=== PATIENT | female | born 1940 | race Caucasian/White ===

== ENCOUNTER → 2018-03-08 08:50 | Outpatient (CLI) | payer MEDICARE, SELFPAY ==
[2018-03-08 10:02] LABS: ALB/GLOB Ratio 0.9 RATIO (0.9-2.4); AST(SGOT) 15 U/L (15-37); Alanine Aminotransfer ALT/SGPT 15 U/L (13-56); Albumin, Serum 3.3 g/dL (3.2-5.0); Alkaline Phosphatase 68 U/L (45-117); Anion Gap 9 (5-15); BUN 14 mg/dL (7-18); BUN/Creat Ratio 14.6 RATIO (10-20); Calcium,Total 8.9 mg/dL (8.5-10.1); Chloride 108 mmol/L (98-107); Cholesterol 217 mg/dL (200); Creatinine, Serum 0.96 mg/dL (0.55-1.02); EST Glomerular Filtration Rate 60 mL/min (>60); Est Glom Filt Rate - Afr Amer 73 mL/min (>60); Globulin 3.6 g/dL (2.2-4.2); Glucose 90 mg/dL (74-106); High Density Lipoprotein 52 mg/dL; Potassium 4.3 mmol/L (3.5-5.1); Protein, Total 6.9 g/dL (6.4-8.2); Sodium Level 145 mmol/L (136-145); Triglycerides 148 mg/dL; Very Low Density Lipoprotein 30 mg/dL (5-40)
[2018-03-08 10:07] LABS: AST(SGOT) 11 U/L (15-37); Alanine Aminotransfer ALT/SGPT 15 U/L (13-56); Albumin, Serum 3.3 g/dL (3.2-5.0); Alkaline Phosphatase 71 U/L (45-117); Bilirubin, Direct 0.11 mg/dL (0.00-0.30); Globulin 3.5 g/dL (2.2-4.2); Protein, Total 6.8 g/dL (6.4-8.2)
== END ==
PROVIDERS: Physician Assistant Medical; Family Provider Family Medicine; PCP Family Medicine; Visit Provider Family Medicine
DX: E78.5 Hyperlipidemia, unspecified (principal); I10 Essential (primary) hypertension; Z79.899 Other long term (current) drug therapy
CPT/HCPCS: 36415; 80053; 80061; 80076

== ENCOUNTER → 2018-05-03 10:44 | Outpatient (CLI) | payer MEDICARE, SELFPAY ==
--- NOTE | 2018-05-03 10:46 | ECHOD_ITS ---
Reason For Study: MVP Procedure This was a 2D Doppler, Color Flow transthoracic echocardiogram. The exam was of fair technical quality due to body habitus. The study was technically difficult. Exam performed in department. Left Ventricle Normal LV size. Left ventricular systolic function is normal. The estimated ejection fraction is 70 %. There is evidence of diastolic dysfunction. No regional wall motion abnormalities noted. Right Ventricle Normal RV size. Normal systolic function. Atria The left atrium is mildly enlarged. Normal right atrium. No doppler evidence for ASD. Mitral Valve There is no mitral annular calcification. Normal mitral valve. Mild-Moderate (1-2+) mitral valve insufficiency. Tricuspid Valve Normal tricuspid valve. Mild tricuspid valve insufficiency. Right ventricular systolic pressure estimated to be 36 mmHg. Aortic Valve Trisinus/trileaflet aortic valve. Mild focal aortic valve thickening. Trivial aortic valve insufficiency. Pulmonic Valve The pulmonic valve is not well visualized. Great Vessels Normal sized aortic root. Pericardium/Pleural No pericardial effusion. MMode/2D Measurements & Calculations LVIDd: 5.3 cm IVSd: 1.0 cm Ao root diam: 3.2 cm LVIDs: 3.5 cm LVPWd: 1.00 cm LA dimension: 4.2 cm RVDd: 3.2 cm FS: 34.3 % LAV(MOD-bp): 54.2 ml LA A4 area: 19.2 cm2 LAV(MOD-bp) Indexed: 30.0 ml/m2 LAV(MOD-sp2): 56.9 ml LAV(MOD-sp4): 50.7 ml Doppler Measurements & Calculations MV E max jake: 76.7 cm/sec Lat Peak E' Jake: 7.4 cm/sec Med Peak E' Jake: 8.8 cm/sec MV A max jake: 85.8 cm/sec E/E' lat: 10.3 E/E' med: 8.7 MV E/A: 0.89 Ao V2 max: 135.2 cm/sec AI max jake: 402.3 cm/sec LV V1 max: 122.6 cm/sec Ao max P.3 mmHg AI max P.7 mmHg LV V1 max P.0 mmHg AI dec slope: 215.7 cm/sec2 AI P1/2t: 546.2 msec PA V2 max: 92.4 cm/sec TR max jake: 287.7 cm/sec TR max P.1 mmHg Interpretation Summary The study was technically difficult. Left ventricular systolic function is normal. The estimated ejection fraction is 70 %. The left atrium is mildly enlarged. Mild-Moderate (1-2+) mitral valve insufficiency. Mild tricuspid valve insufficiency. Mild focal aortic valve thickening. Right ventricular systolic pressure estimated to be 36 mmHg. There is evidence of diastolic dysfunction. Ordering Physician: Khadra Knox Referring Physician: Carlitos Wise Performed By: Sachi Solomon RDCS, RVT
== END ==
PROVIDERS: Family Provider Family Medicine; PCP Family Medicine; Visit Provider Physician Assistant Medical
DX: I47.1 Supraventricular tachycardia (principal)
CPT/HCPCS: 93306

== ENCOUNTER 2018-06-15 00:30 | Emergency (ER) | payer MEDICARE, SELFPAY ==
[2018-06-15 00:31] VITALS: BP 197/115; PULSE 126; PULSE 136; RESP 21; RESP 30; TEMP 36.6; O2SAT 96; O2SAT 98; BMI 32.2
--- NOTE | 2018-06-15 00:31 | EKG12_ITS ---
Test Reason : REPEAT Blood Pressure : / mmHG Vent. Rate : 069 BPM Atrial Rate : 069 BPM P-R Int : 184 ms QRS Dur : 088 ms QT Int : 406 ms P-R-T Axes : 054 010 023 degrees QTc Int : 435 ms Normal sinus rhythm Nonspecific ST abnormality Abnormal ECG Confirmed by GUTIERREZ MORALES, VERN ([id number]), health editor AILYN PAULINO ([id number]) on 06/17/2018 1:20:32 PM Referred By: SHARON Confirmed By:VERN WHITLEY MD
--- NOTE | 2018-06-15 00:33 | ED.DCSUM_ITS ---
- ER Visit Summary Date of Service: 06/15/18 Chief Complaint: Palpitation History of Present Illness: The patient is a 77 F presents to the emergency room palpitations. Patient has a history of palpitations. She does not think she has ever been diagnosed with atrial fibrillation. She states approximately 45 minutes ago, she began feeling her heart was racing. She did feel mildly short of breath. She denies any chest pain. She states up until today she has been in her normal state of health. She denies any history of coronary vascular disease. She has had no orthopnea. She denies any cough or increasing leg edema. Physical Examination: Vital signs reviewed General: Well-nourished, well-developed Head: Normocephalic, atraumatic Eyes: Pupils equal and reactive, extraocular muscles intact Neck, supple, no lymphadenopathy Heart: Irregular tachycardic rate and rhythm Respiratory: No distress, clear bilaterally Abdomen: Soft, nontender, nondistended, no peritoneal signs Back: Nontender Extremities: Nontender, no edema, no cords Skin: Normal color no rash Neuro: Alert and oriented, no focal or lateralizing deficits Test Results: [] Emergency Department Course and Treatment: The patient presents with symptomatic palpitations. Initial EKG demonstrates atrial fibrillation with rapid ventricular response. IV was established. Patient was placed on a monitor. I had ordered 20 mg of IV diltiazem, however prior to receiving any medication, the patient did spontaneously convert. Repeat EKG demonstrates sinus rhythm without acute ischemia. Labs were obtained were unremarkable. Chest x-ray shows no volume overload. The patient has had no chest pain. She was observed for 1 hour longer and had no further dysrhythmia. I did discuss the patient with Dr. Gillis, on-call for Dr. Garcia. At this time, we are going to increase the patient's diltiazem to 180 mg. She is comfortable this plan of care and would discharge to follow-up with cardiology as an outpatient. Treatment Plan: [] Disposition: Discharge Impression: 1. Atrial fibrillation with rapid ventricular response-spontaneous conversion to sinus rhythm This note was generated with [employer] software. It may contain incorrect words, spelling, and punctuation that were not noted in review of the chart prior to signing ED Disposition - Plan for ED Patient: Chief Complaint: Palpitations Instructions: ED Afib Prescriptions: Diltiazem HCl [Diltiazem 24Hr Cd] 180 mg PO DAILY #30 cap.er.24h Referrals: Vidal Garcia MD [STAFF PHYSICIAN] -
--- NOTE | 2018-06-15 00:35 | RAD_ITS ---
STUDY: X-RAY CHEST REASON FOR EXAM: Female, 77 years old. Chest pain. TECHNIQUE: AP portable chest. COMPARISON: March 31, 2016. FINDINGS: The lungs are clear and expanded. There is no demonstrated pleural abnormality. Stable mild cardiomegaly. Normal mediastinum and woody. Normal visualized pulmonary arteries. Normal visualized aortic arch and descending thoracic aorta. Normal visualized thoracic spine. Normal visualized ribs, clavicles, and shoulders. There is no demonstrated abnormality of the visualized soft tissue structures of the upper abdomen. RAD/Chest 1 View (Portable) IMPRESSION: Stable cardiomegaly. No acute findings. Electronically Signed: David Dueñas MD at 1:04 EDT , Service support ,
--- NOTE | 2018-06-15 00:35 | EKG12_ITS ---
Test Reason : PALPITATIONS Blood Pressure : / mmHG Vent. Rate : 127 BPM Atrial Rate : 138 BPM P-R Int : 000 ms QRS Dur : 098 ms QT Int : 324 ms P-R-T Axes : 000 011 195 degrees QTc Int : 470 ms Atrial fibrillation Nonspecific ST and T wave abnormality Abnormal ECG Confirmed by GUTIERREZ MORALES, VERN ([id number]), science editor AILYN PAULINO ([id number]) on 06/17/2018 1:39:13 PM Referred By: SHARON Confirmed By:VERN WHITLEY MD
[2018-06-15] MEDS: Aspirin 81 MG TAB.CHEW 324 MG PO (00:41)
[2018-06-15 00:57] LABS: Absolute Lymphocyte Count 2.49 X10^3/ul (0.83-4.51); Absolute Neutrophil Count 2.3 X10^3/uL (2.0-7.7); Basophil# 0.03 X10^3/uL; Basophil% 0.5 % (0-1); Eosinophil# 0.12 X10^3/uL; Eosinophils% 2.2 % (0-5); Hematocrit 42.5 % (37-47); Hemoglobin 13.7 g/dl (12.0-15.0); Lymphocyte # 2.49 X10^3/ul (4.0); Lymphocyte % 44.9 % (19-41); Mean Corp Hgb Conc 32.2 g/gl (32-36); Mean Corpuscular Hgb 30.2 pg (27.0-32.0); Mean Corpuscular Volume 93.8 fL (81-99); Mean Platelet Vol. 9.9 fl (6.2-12.0); Monocyte# 0.62 X10^3/uL; Monocyte% 11.2 % (0-10); Neutrophil # 2.28 X10^3/uL (2.7-7.7); Platelet Count 319 K/mm3 (150-450); RBC Distribution Width CV 13.8 % (11.6-14.6); RBC Distribution Width SD 45.2 fl (35.1-43.9); Red Blood Count 4.53 M/mm3 (4.2-5.4); White Blood Count 5.6 K/mm3 (4.4-11.0)
[2018-06-15 00:59] LABS: POSITIVE COUNT NO; POSITIVE DIFFERENTIAL NO; POSITIVE MORPHOLOGY NO
[2018-06-15 01:08] LABS: Anion Gap 8 (5-15); BUN 14 mg/dL (7-18); BUN/Creat Ratio 13.2 RATIO (10-20); Calcium,Total 9.4 mg/dL (8.5-10.1); Chloride 107 mmol/L (98-107); Creatinine, Serum 1.06 mg/dL (0.55-1.02); EST Glomerular Filtration Rate 53 mL/min (>60); Est Glom Filt Rate - Afr Amer 64 mL/min (>60); Estimated Creatinine Clearance 34.59 ml/min; Glucose 104 mg/dL (74-106); Potassium 3.7 mmol/L (3.5-5.1); Sodium Level 141 mmol/L (136-145)
[2018-06-15 01:12] LABS: Partial Thromboplast Time 28.3 Seconds (24.1-36.2); Prothrombin Time (Protime)PT. 12.8 SECONDS (11.7-14.9)
[2018-06-15 01:13] VITALS: BP 145/88; PULSE 62; RESP 20; O2SAT 98
[2018-06-15 01:44] VITALS: BP 154/62; PULSE 64; RESP 19; O2SAT 99
== END 2018-06-15 01:50 | disposition home or self-care (01) ==
LOC: ED 00:48
PROVIDERS: Emergency Provider Emergency Medicine; Family Provider Family Medicine; PCP Family Medicine
DX: I48.91 Unspecified atrial fibrillation (principal); I10 Essential (primary) hypertension; E78.00 Pure hypercholesterolemia, unspecified
CPT/HCPCS: 71045; 80048; 84484; 85025; 85610; 85730; 93005; 96374; 99285; A4216

== ENCOUNTER → 2018-07-01 09:18 | Outpatient (CLI) | payer MEDICARE, SELFPAY ==
[2018-07-01 11:25] LABS: Magnesium 2.2 mg/dL (1.6-2.6); T4 Total, Thyroxin 7.8 ug/dL (4.8-13.9); Thyroid Stim Hormone (TSH) 4.83 uIU/mL (0.358-3.74)
== END ==
PROVIDERS: Family Provider Family Medicine; PCP Family Medicine; Visit Provider Physician Assistant Medical
DX: I47.1 Supraventricular tachycardia (principal); R00.2 Palpitations; I10 Essential (primary) hypertension; R53.83 Other fatigue
CPT/HCPCS: 36415; 83735; 84436; 84443

== ENCOUNTER → 2018-11-17 10:51 | Outpatient (CLI) | payer MEDICARE, SELFPAY ==
[2018-09-13 09:30] VITALS: BMI 31.2
[2018-11-17 14:07] LABS: Thyroid Stim Hormone (TSH) 3.83 uIU/mL (0.358-3.74)
== END ==
PROVIDERS: Family Provider Family Medicine; PCP Family Medicine; Referring Provider Family Medicine; Visit Provider Family Medicine
DX: E78.00 Pure hypercholesterolemia, unspecified (principal)
CPT/HCPCS: 36415; 84443

== ENCOUNTER → 2019-12-20 11:27 | Outpatient (CLI) | payer MEDICARE, SELFPAY ==
[2019-12-20 11:24] VITALS: BMI 30.7
[2019-12-20 12:52] LABS: Hemoglobin A1c 5.5 % (4.2-6.3)
[2019-12-20 13:02] LABS: T4 Free Direct 0.98 ng/dL (0.76-1.46); Thyroid Stim Hormone (TSH) 6.83 uIU/mL (0.358-3.74)
== END ==
PROVIDERS: PCP Family Medicine; Referring Provider Family Medicine; Visit Provider Family Medicine
DX: I48.0 Paroxysmal atrial fibrillation (principal); Z79.899 Other long term (current) drug therapy
CPT/HCPCS: 36415; 83036; 84439; 84443

== ENCOUNTER → 2020-06-21 08:58 | Outpatient (CLI) | payer MEDICARE, SELFPAY ==
[2020-06-14 15:32] VITALS: BMI 31.4
[2020-06-25 16:54] LABS: Acetylcholine Receptor Binding 0.04 nmol/L (0.00-0.24)
== END ==
PROVIDERS: PCP Family Medicine; Referring Provider Ophthalmology; Visit Provider Ophthalmology
DX: H49.01 Third [oculomotor] nerve palsy, right eye (principal); H25.813 Combined forms of age-related cataract, bilateral; H35.363 Drusen (degenerative) of macula, bilateral
CPT/HCPCS: 36415; 84238

== ENCOUNTER → 2020-11-19 14:24 | Outpatient (CLI) | payer MEDICARE, SELFPAY ==
[2020-11-19 14:03] VITALS: BMI 31.6
[2020-11-19 15:55] LABS: ALB/GLOB Ratio 0.9 RATIO (0.9-2.4); AST(SGOT) 13 U/L (15-37); Alanine Aminotransfer ALT/SGPT 16 U/L (13-56); Albumin, Serum 3.4 g/dL (3.2-5.0); Alkaline Phosphatase 78 U/L (45-117); Anion Gap 4 (5-15); BUN 13 mg/dL (7-18); Calcium,Total 9.7 mg/dL (8.5-10.1); Chloride 106 mmol/L (98-107); Creatinine, Serum 1.08 mg/dL (0.55-1.02); EST Glomerular Filtration Rate 52 mL/min (>60); Est Glom Filt Rate - Afr Amer 63 mL/min (>60); Globulin 3.7 g/dL (2.2-4.2); Glucose 93 mg/dL (74-106); Potassium 4.4 mmol/L (3.5-5.1); Protein, Total 7.1 g/dL (6.4-8.2); Sodium Level 138 mmol/L (136-145); T4 Free Direct 1.01 ng/dL (0.76-1.46); Thyroid Stim Hormone (TSH) 4.47 uIU/mL (0.358-3.74)
== END ==
PROVIDERS: PCP Family Medicine; Referring Provider Family Medicine; Visit Provider Family Medicine
DX: I48.0 Paroxysmal atrial fibrillation (principal); I10 Essential (primary) hypertension
CPT/HCPCS: 36415; 80053; 84439; 84443

== ENCOUNTER 2021-11-27 11:53 | Outpatient (CLI) | payer MEDICARE, SELFPAY ==
[2021-11-27 15:18] LABS: Absolute Lymphocyte Count 1.98 X10^3/uL (0.83-4.51); Absolute Neutrophil Count 3.3 X10^3/uL (2.0-7.7); Basophil# 0.05 X10^3/uL; Basophil% 0.8 % (0-1); Eosinophil# 0.33 X10^3/uL; Eosinophils% 5.2 % (0-5); Hematocrit 39.5 % (37-47); Hemoglobin 12.4 g/dL (12.0-15.0); Lymphocyte # 1.98 X10^3/ul (0.83-4.51); Lymphocyte % 31.4 % (19-41); Mean Corp Hgb Conc 31.4 g/dL (32-36); Mean Corpuscular Hgb 30.2 pg (27.0-32.0); Mean Corpuscular Volume 96.1 fL (81-99); Mean Platelet Vol. 10.9 fl (6.2-12.0); Monocyte# 0.62 X10^3/uL; Monocyte% 9.8 % (0-10); NRBC Flagged by Analyzer 0 % (0-5); Neutrophil # 3.31 X10^3/uL (2.7-7.7); Neutrophil % 52.6 % (47-70); Platelet Count 348 K/mm3 (150-450); RBC Distribution Width CV 13.7 % (11.6-14.6); RBC Distribution Width SD 48.2 fl (35.1-43.9); Red Blood Count 4.11 M/mm3 (4.2-5.4); White Blood Count 6.3 K/mm3 (4.4-11.0)
[2021-11-27 15:41] LABS: ALB/GLOB Ratio 0.9 RATIO (0.9-2.4); AST(SGOT) 14 U/L (15-37); Alanine Aminotransfer ALT/SGPT 16 U/L (13-56); Albumin, Serum 3.3 g/dL (3.2-5.0); Alkaline Phosphatase 65 U/L (45-117); Anion Gap 6 (5-15); BUN 21 mg/dL (7-18); BUN/Creat Ratio 18.6 RATIO (10-20); Calcium,Total 9.4 mg/dL (8.5-10.1); Chloride 110 mmol/L (98-107); Creatinine, Serum 1.13 mg/dL (0.55-1.02); EST Glomerular Filtration Rate 49 mL/min (>60); Est Glom Filt Rate - Afr Amer 59 mL/min (>60); Globulin 3.8 g/dL (2.2-4.2); Glucose 92 mg/dL (74-106); Potassium 4.5 mmol/L (3.5-5.1); Protein, Total 7.1 g/dL (6.4-8.2); Sodium Level 142 mmol/L (136-145); Thyroid Stim Hormone (TSH) 5.85 uIU/mL (0.358-3.74)
== END 2021-11-27 23:59 | disposition short-term general hospital (02) ==
LOC: BIMLAB 11:53
PROVIDERS: PCP Family Medicine; Referring Provider Family Medicine; Visit Provider Family Medicine
DX: R10.9 Unspecified abdominal pain (principal); I10 Essential (primary) hypertension; E78.00 Pure hypercholesterolemia, unspecified
CPT/HCPCS: 36415; 80053; 84443; 85025

== ENCOUNTER 2022-03-17 12:59 | Observation (INO) | payer MEDICARE, SELFPAY ==
[2022-03-17] VITALS (9 sets, daily range): BP systolic 124–179; BP diastolic 50–113; PULSE 43–65; RESP 16–20; TEMP 36.1–36.3; O2SAT 94–99; BMI 34.4; BMI 36.2
--- NOTE | 2022-03-17 13:36 | EKG12_ITS ---
Test Reason : DIZZINESS Blood Pressure : / mmHG Vent. Rate : 051 BPM Atrial Rate : 051 BPM P-R Int : 182 ms QRS Dur : 092 ms QT Int : 478 ms P-R-T Axes : 047 016 037 degrees QTc Int : 440 ms Sinus bradycardia Otherwise normal ECG Confirmed by GUTIERREZ MORALES, VERN ([id number]), offline editor DANIEL BENITES ([id number]) on 03/19/2022 7:23:33 AM Referred By: PL/AR Confirmed By:VERN WHITLEY MD
--- NOTE | 2022-03-17 13:37 | EDS_ITS ---
HPI History of Present Illness Chief Complaint: Dizziness Narrative Narrative: Patient with past medical history of atrial fibrillation, not on blood thinners, presents with vertiginous type symptoms that she has had since this morning. She states she is slightly nauseated with it but denies any vomiting. Is worse with standing and putting her head in a certain way. She denies any chest pain or shortness of breath. No dysuria or hematuria. No recent diarrhea or reasons for dehydration. She does relate history that 2 days ago, when she was at [facility], she had a 3-hour episode of this dizziness and vertigo. She was at [facility] and when she had stood up or moves her head a certai n way, she began feeling like the room was spinning. Upon examination here, she states that I am spinning. She denies any presyncopal feeling. No paresthesias. No headaches. [facility] Medical History (Updated 03/17/22 @ 16:08 by Mihir Coker MD) Atrial fibrillation, controlled Atrial premature depolarization Contraction, premature ventricular Ectopic atrial tachycardia Essential hypertension History of ovarian cyst Hyperlipemia Hypertension Mitral valve disorder Nonrheumatic mitral (valve) insufficiency Palpitations Paroxysmal atrial fibrillation Sinus bradycardia Syncope and collapse Ventricular premature depolarization Home Medications aspirin 81 mg PO DAILY@1700 05/03/14 [History Last Taken 03/16/22] amlodipine 5 mg tablet 5 mg PO DAILY #90 tab 07/23/21 [Rx Last Taken 03/17/22] lisinopril 20 mg tablet 20 mg PO BID #60 tab 09/08/21 [Rx Last Taken 03/17/22] atenolol 100 mg tablet 100 mg PO BID #180 tab 03/11/22 [Rx Last Taken 03/17/22] levothyroxine 25 mcg PO DAILY 03/17/22 [History Last Taken 03/17/22] Allergy/AdvReac Type Severity Reaction Status Date / Time Penicillins Allergy Anaphylaxis Verified 03/17/22 13:04 codeine AdvReac Abd Verified 03/17/22 13:04 cramps/diarrhea Family History Father Heart disease Myocardial infarction, Onset Age: 59 Black lung disease Brother Cancer Sister Cancer Breast Brother Bright's disease Brother Multiple sclerosis Surgical History History of appendectomy History of cholecystectomy History of esophageal surgery History of tubal ligation Social History Smoking Status: Never smoker alcohol intake: never caffeine: Yes Type: coffee Number of servings: 2 what type of physical activity do you participate in: walking frequency: 3-4 times per week ROS ROS ED ROS Narrative Constitutional: No fever, no chills. HEENT: No sore throat. No neck pain. No loss of vision. No rhinorrhea. Cardiovascular: No chest pain. No palpitations. No pedal edema. Respiratory: No cough, no shortness of breath. Abdominal: No abdominal pain. Minimal nausea-resolved. No vomiting. Genitourinary: No dysuria. No hematuria. Musculoskeletal: No myalgias. No arthralgias. Neurologic: No headaches. Positive dizziness. No lightheadedness. No paresthesias. Skin: No rash. No change in color. Psychiatric: No depression. No anxiety. EXAM Physical Exam Narrative Exam Narrative: Afebrile. Vital signs noted. HEENT: Normocephalic. Atraumatic. PERRL, EOMI. Neck soft and supple. No point tenderness or step off. Cardiovascular: Regular rate and rhythm. No murmurs, rubs, or gallops appreciated. Respiratory: No tachypnea. Lungs clear to auscultation bilaterally. Gastrointestinal: Abdomen soft, nontender, with normoactive bowel sounds. No rebound or guarding. Neurological: Awake. Alert. Oriented x3. Nonfocal, nonlateralizing. Fatigable horizontal nystagmus causing dizziness. Cerebellar functioning normal as tested. Skin: No rash. Normal color. No pallor. Musculoskeletal: No pedal edema. Full range of motion extremities. Const Vital Signs: 03/17/22 13:02 03/17/22 13:29 03/17/22 15:13 Temperature 97 F L Temperature Source Temporal Pulse Rate 51 L Pulse Rate [Lying] 65 Pulse Rate [Sitting (for 1 minute prior to obtaining)] 49 L Pulse Rate [Standing (for 1 minute prior to obtaining)] 46 L Respiratory Rate 18 Respiratory Pattern Normal Blood Pressure 164/51 H Blood Pressure [Lying] 179/65 H Blood Pressure [Sitting (for 1 minute prior to obtaining)] 176/54 H Blood Pressure [Standing (for 1 minute prior to obtaining)] 154/54 H Blood Pressure Mean 88 Blood Pressure Mean [Lying] 103 Blood Pressure Mean [Sitting (for 1 minute prior to obtaining)] 94 Blood Pressure Mean [Standing (for 1 minute prior to obtaining)] 87 Pulse Ox 99 Oxygen Delivery Method Room Air 03/17/22 15:49 03/17/22 16:11 Temperature 97.3 F L Temperature Source Temporal Pulse Rate 46 L 43 L Pulse Rate [Lying] Pulse Rate [Sitting (for 1 minute prior to obtaining)] Pulse Rate [Standing (for 1 minute prior to obtaining)] Respiratory Rate 16 17 Respiratory Pattern Blood Pressure 124/113 H 155/65 H Blood Pressure [Lying] Blood Pressure [Sitting (for 1 minute prior to obtaining)] Blood Pressure [Standing (for 1 minute prior to obtaining)] Blood Pressure Mean 116 95 Blood Pressure Mean [Lying] Blood Pressure Mean [Sitting (for 1 minute prior to obtaining)] Blood Pressure Mean [Standing (for 1 minute prior to obtaining)] Pulse Ox 95 94 Oxygen Delivery Method Room Air Room Air MDM MDM MDM Narrative Medical decision making narrative: I do feel that the patient most likely has benign paroxysmal vertigo. However, since she had an episode of this 2 days ago and this had never happened to her previously, comprehensive work-up was pursued. She was bolused normal saline. I will obtain orthostatics. I do feel CT imaging of her brain is indicated along with EKG and basic lab work. CBC shows normal white count of 6.8, hemoglobin normal at 12.8. Platelet count is normal at 283. Electrolyte panel is grossly unremarkable except for creatinine slightly elevated at 1.1 with a normal BUN of 16. Glucose normal at 99. High-sensitivity troponin normal at 16. EKG demonstrates normal sinus rhythm/bradycardia at 51 bpm without ectopy or acute ST changes. No STEMI. Urinalysis shows no evidence of ketones or infection. I do not feel antibiotics are indicated. CT of the brain shows no acute process. She was given meclizine 25 mg orally. Orthostatics are negative. Attempt was made at ambulation but she states that she is still dizzy. Her son is very concerned because he states that she lives alone and that she has had a high risk for falls. I will discuss the patient with the hospitalist for observation. Of note, she is now bradycardic in the 40s, but she does take atenolol. Patient was discussed with Dr. Kailey Givens. Disposition is assigned to observation. She is in stable condition. Lab Data Attestation: I reviewed the patient's lab results. Labs: Laboratory Results - last 24 hr 03/17/22 03/17/22 03/17/22 13:45 13:45 Unknown WBC 6.8 RBC 4.15 L Hgb 12.8 Hct 39.3 MCV 94.7 MCH 30.8 MCHC 32.6 RDW Std Deviation 46.4 H RDW Coeff of Cata 13.4 Plt Count 283 MPV 10.3 Immature Gran % (Auto) 0.100 Neut % (Auto) 57.2 Lymph % (Auto) 31.9 Slope % (Auto) 8.6 Eos % (Auto) 1.8 Baso % (Auto) 0.4 Absolute Neuts (auto) 3.9 Absolute Lymphs (auto) 2.15 Nucleated RBC % 0 Sodium 139 Potassium 4.5 Chloride 106 Carbon Dioxide 27.0 Anion Gap 6 BUN 16 Creatinine 1.12 H Estim Creat Clear Calc 29.22 Est GFR (MDRD) Af Amer 60 Est GFR (MDRD) Non-Af 50 L BUN/Creatinine Ratio 14.3 Glucose 99 Calcium 9.5 Total Bilirubin 0.40 AST 15 ALT 20 Alkaline Phosphatase 61 Troponin I High Sens 16 Total Protein 7.0 Albumin 3.4 Globulin 3.6 Albumin/Globulin Ratio 0.9 Urine Color Straw Urine Clarity Clear Urine pH 7.0 Ur Specific Crystal 1.005 Urine Protein Negative Urine Glucose (UA) Normal Urine Ketones Negative Urine Occult Blood Negative Urine Nitrite Negative Urine Bilirubin Negative Urine Urobilinogen Normal Ur Leukocyte Esterase 25 H Urine RBC 0 SEEN Urine WBC 0 SEEN Ur Squamous Epith Cells 0 SEEN Urine Bacteria 0 SEEN Urine Mucus 0 SEEN Radiography Diagnostic Testing: Clinical Impression(s) from Imaging Studies Brain CT 03/17/22 14:12 IMPRESSION: Normal unenhanced CT scan of the brain. Electronically Signed: Jose Navarrete MD at 14:28 EDT , Discharge Plan Dx/Rx/DC Orders Clinical Impression: Dizziness, At risk for falls, Bradycardia Disposition Disposition: Acute Care Hospital [facility]
[2022-03-17 13:59] LABS: Absolute Lymphocyte Count 2.15 X10^3/uL (0.83-4.51); Absolute Neutrophil Count 3.9 X10^3/uL (2.0-7.7); Basophil# 0.03 X10^3/uL; Basophil% 0.4 % (0-1); Eosinophil# 0.12 X10^3/uL; Eosinophils% 1.8 % (0-5); Hematocrit 39.3 % (37-47); Hemoglobin 12.8 g/dL (12.0-15.0); Lymphocyte # 2.15 X10^3/ul (0.83-4.51); Lymphocyte % 31.9 % (19-41); Mean Corp Hgb Conc 32.6 g/dL (32-36); Mean Corpuscular Hgb 30.8 pg (27.0-32.0); Mean Corpuscular Volume 94.7 fL (81-99); Mean Platelet Vol. 10.3 fl (6.2-12.0); Monocyte# 0.58 X10^3/uL; Monocyte% 8.6 % (0-10); NRBC Flagged by Analyzer 0 % (0-5); Neutrophil # 3.86 X10^3/uL (2.7-7.7); Neutrophil % 57.2 % (47-70); Platelet Count 283 K/mm3 (150-450); RBC Distribution Width CV 13.4 % (11.6-14.6); RBC Distribution Width SD 46.4 fl (35.1-43.9); Red Blood Count 4.15 M/mm3 (4.2-5.4); White Blood Count 6.8 K/mm3 (4.4-11.0)
[2022-03-17] MEDS: 0.9% Normal Saline 1,000 ML 1000 ML IV (14:10)
--- NOTE | 2022-03-17 14:12 | CT_ITS ---
STUDY: CT BRAIN WITHOUT CONTRAST REASON FOR EXAM: Female, 81 years old. Dizziness RADIATION DOSAGE (If Supplied By Facility): CTDIvol = ( 44.99 ) mGy, DLP = ( 829.85 ) mGycm TECHNIQUE: Transaxial CT imaging of the brain was performed without administration of intravenous contrast material. Individualized dose optimization techniques were used for this CT. COMPARISON: No relevant priors. FINDINGS: Normal soft tissue structures. Normal calvarium. Normal size ventricles and extra-axial spaces for the patient''s age. Normal white matter tracts of the cerebral hemispheres. Normal basal ganglia and thalami. Normal brainstem. Normal cerebellum. There is no intracranial hemorrhage. There are no findings of an acute ischemic infarction. Normal visualized paranasal sinuses. CT/Brain/Head without Contrast IMPRESSION: Normal unenhanced CT scan of the brain. Electronically Signed: Jose Navarrete MD at 14:28 EDT ,
[2022-03-17 14:16] LABS: ALB/GLOB Ratio 0.9 RATIO (0.9-2.4); AST(SGOT) 15 U/L (15-37); Alanine Aminotransfer ALT/SGPT 20 U/L (13-56); Albumin, Serum 3.4 g/dL (3.2-5.0); Alkaline Phosphatase 61 U/L (45-117); Anion Gap 6 (5-15); BUN 16 mg/dL (7-18); BUN/Creat Ratio 14.3 RATIO (10-20); Calcium,Total 9.5 mg/dL (8.5-10.1); Chloride 106 mmol/L (98-107); Creatinine, Serum 1.12 mg/dL (0.55-1.02); EST Glomerular Filtration Rate 50 mL/min (>60); Est Glom Filt Rate - Afr Amer 60 mL/min (>60); Estimated Creatinine Clearance 29.22 ml/min; Globulin 3.6 g/dL (2.2-4.2); Glucose 99 mg/dL (74-106); Potassium 4.5 mmol/L (3.5-5.1); Sodium Level 139 mmol/L (136-145); Troponin-I HS 16 pg/mL (3.0-54.0)
[2022-03-17] MEDS: Meclizine HCl 25 MG Tablet PO (15:23)
[2022-03-17 15:33] LABS: Bacteria 0 SEEN /hpf (None Seen); Mucous, Urine 0 SEEN /hpf (<or=2+); Red Blood Cells-Urine 0 SEEN /hpf (0-5); Squamous Epithelial Cells - UA 0 SEEN /hpf (5-10); White Blood Cells 0 SEEN /hpf (0-5)
[2022-03-17 15:37] LABS: Color, Urine Straw (Yellow); Glucose, Dipstick Normal (Normal); Ketone-Dipstick Negative (Negative); Leukocyte Esterase-Dipstick 25 /ul (Negative); Nitrite-Dipstick Negative (Negative); Occult Blood-Urine Negative /ul (Negative); Protein-Dipstick Negative (Negative); Specific Gravity, Urine 1.005 (1.002-1.030); Urine Bilirubin Dipstick Negative (Negative); Urine Clarity Clear (Clear); Urine Urobilinogen Normal (Normal)
--- NOTE | 2022-03-17 16:07 | NURSING ---
Addendum entered by Mandy Fowler 03/17/22 16:23: PCU OBS ASHLEY INTRACTABLE DIZZINESS Original Note: HOSPITALIST PAGED
--- NOTE | 2022-03-17 16:39 | HP.PCM.HOS_ITS ---
HPI - General General Date of Admission: 03/17/22 Date of Service: 03/17/22 Chief Complaint: Vertigo HPI Narrative The patient is an 81 y/o F w/ PMHx: PAF, HTN, HLD, Hx Sinus bradycardia, Hypothyroidism who presents to the [facility] [place] ED on 03/17/22 with history of onset vertiginous type symptoms initially starting 2 days prior to current present ation while she was at [employer] with a 3-hour episode specifically when she quickly stood up and moved her head to the left with room spinning sensation with nausea with no emesis but this resolved however it reoccurred on a.m. of day of presentation prompting her son to bring her for evaluation. Work-up in the ED included T97, heart rate 51, BP 164/51, respiratory rate 18, 99% room air, negative orthostatic VS, CBC with WC 6.8, hemoglobin 12.8, platelet 283 without marked shift, CMP with BUN/creatinine 16/1.12 otherwise not marked appearing, troponin 16, urinalysis unremarkable, CT brain with no acute intracranial findings, EKG demonstrates normal sinus rhythm/bradycardia at 51 bpm without ectopy or acute ST changes. In the ED patient administered meclizine 25 mg po x 1 with ongoing vertigious symptoms however she notes that is improving and better than when she presented but given she still has some symptoms she is concerned about returning to home. [facility] Medical History (Updated 03/17/22 @ 16:[address] Kailey Givens MD) Atrial fibrillation, controlled Atrial premature depolarization Contraction, premature ventricular Ectopic atrial tachycardia Essential hypertension History of ovarian cyst Hyperlipemia Hypertension Mitral valve disorder Nonrheumatic mitral (valve) insufficiency Palpitations Paroxysmal atrial fibrillation Sinus bradycardia Syncope and collapse Ventricular premature depolarization Home Medications aspirin 81 mg PO DAILY@1700 05/03/14 [History Last Taken 03/16/22] amlodipine 5 mg tablet 5 mg PO DAILY #90 tab 07/23/21 [Rx Last Taken 03/17/22] lisinopril 20 mg tablet 20 mg PO BID #60 tab 09/08/21 [Rx Last Taken 03/17/22] atenolol 100 mg tablet 100 mg PO BID #180 tab 03/11/22 [Rx Last Taken 03/17/22] levothyroxine 25 mcg PO DAILY 03/17/22 [History Last Taken 03/17/22] Allergy/AdvReac Type Severity Reaction Status Date / Time Penicillins Allergy Anaphylaxis Verified 03/17/22 13:04 codeine AdvReac Abd Verified 03/17/22 13:04 cramps/diarrhea Family History Father Heart disease Myocardial infarction, Onset Age: 59 Black lung disease Brother Cancer Sister Cancer Breast Brother Bright's disease Brother Multiple sclerosis Surgical History History of appendectomy History of cholecystectomy History of esophageal surgery History of tubal ligation Social History (Updated 03/17/22 @ 16:[address] Kailey Givens MD) household members: none Smoking Status: Never smoker alcohol intake: never substance use type: does not use caffeine: Yes Type: coffee Number of servings: 2 what type of physical activity do you participate in: walking frequency: 3-4 times per week ROS ROS Narrative Admission Review of Systems: CONSTITUTIONAL: No weight loss, fever, chills, + weakness or fatigue. HEENT: Eyes: No visual loss, blurred vision, double vision or yellow sclerae. Ears, Nose, Throat: No hearing loss, sneezing, congestion, runny nose or sore throat. SKIN: No rash or itching, lesions, wounds. CARDIOVASCULAR: No chest pain, chest pressure or chest discomfort, palpitations, edema, orthopnea, syncopal events. RESPIRATORY: No shortness of breath, cough or sputum, wheezing, hemoptysis. GASTROINTESTINAL: + Anorexia, nausea, No vomiting or diarrhea, abdominal pain, melena, BRBPR. GENITOURINARY: No dysuria, frequency, urgency or retention. NEUROLOGICAL: + Vertigo, primarily with position changes with turning her head to the left, No headache, dizziness, syncope, paralysis, ataxia, numbness or tingling in the extremities, focal weakness, change in bowel or bladder control, seizure. MUSCULOSKELETAL: + muscle, back pain, joint pain or stiffness. HEMATOLOGIC: No anemia, bleeding or bruising. LYMPHATICS: No enlarged nodes. No history of splenectomy. PSYCHIATRIC: No history of depression or anxiety. ENDOCRINOLOGIC: No reports of sweating, cold or heat intolerance. No polyuria or polydipsia. ALLERGIES: No history of asthma, hives, eczema or rhinitis. Vital Signs Vital Signs Vital Signs: 03/17/22 13:02 03/17/22 13:29 03/17/22 15:13 Temperature 97 F L Temperature Source Temporal Pulse Rate 51 L Pulse Rate [Lying] 65 Pulse Rate [Sitting (for 1 minute prior to obtaining)] 49 L Pulse Rate [Standing (for 1 minute prior to obtaining)] 46 L Respiratory Rate 18 Respiratory Pattern Normal Blood Pressure 164/51 H Blood Pressure [Lying] 179/65 H Blood Pressure [Sitting (for 1 minute prior to obtaining)] 176/54 H Blood Pressure [Standing (for 1 minute prior to obtaining)] 154/54 H Blood Pressure Mean 88 Blood Pressure Mean [Lying] 103 Blood Pressure Mean [Sitting (for 1 minute prior to obtaining)] 94 Blood Pressure Mean [Standing (for 1 minute prior to obtaining)] 87 Pulse Ox 99 Oxygen Delivery Method Room Air 03/17/22 15:49 03/17/22 16:11 03/17/22 16:37 Temperature 97.3 F L 97.3 F L Temperature Source Temporal Temporal Pulse Rate 46 L 43 L 43 L Pulse Rate [Lying] Pulse Rate [Sitting (for 1 minute prior to obtaining)] Pulse Rate [Standing (for 1 minute prior to obtaining)] Respiratory Rate 16 17 17 Respiratory Pattern Blood Pressure 124/113 H 155/65 H 155/65 H Blood Pressure [Lying] Blood Pressure [Sitting (for 1 minute prior to obtaining)] Blood Pressure [Standing (for 1 minute prior to obtaining)] Blood Pressure Mean 116 95 95 Blood Pressure Mean [Lying] Blood Pressure Mean [Sitting (for 1 minute prior to obtaining)] Blood Pressure Mean [Standing (for 1 minute prior to obtaining)] Pulse Ox 95 94 94 Oxygen Delivery Method Room Air Room Air Room Air Weight Weight: 182 lb Body Mass Index (BMI) 34.4 Physical Exam Narrative Physical Examination: General: Awake, alert, oriented x 3 and cooperative, seated upright in the ED bedside chair, notes feeling improved, able to turn her head now to the left without immediate symptoms but still fatigued. Skin: Normal color, normal turgor, no icterus, no cyanosis. HEENT: AT/NC, EOMI, PERRLA, MMM, no carotid bruits or JVD noted. Lungs: Mild diminished, greater bases, appropriate for no rales, ronchi or wheezing. Heart: Currently mildly bradycardic with regular rhythm; no gallop, rub audible. Abdomen: Soft, obese, NTTP, ND, distant mildly hyperactive BS, no HSM. Extremities: No cyanosis, clubbing, or edema. Neurological: Patient awake, alert, oriented as noted, cognitive function intact; pupils equally reactive to light and accommodation, cranial nerves II- XII grossly normal, moving all 4 extremities, no focal deficits, strength improving, mildly to moderately global decrease secondary to recent acute presentation, unable to reproduce any vertigo upon evaluation and patient notes improving, no nystagmus evident. Psychiatric: Affect appears fatigued otherwise normal, no acute evidence of depressive or anxiety feelings. Results Lab / Micro Data Result Diagrams: 03/17/22 13:45 03/17/22 13:45 Labs: Laboratory Results - last 24 hr 03/17/22 13:45: WBC 6.8, RBC 4.15 L, Hgb 12.8, Hct 39.3, MCV 94.7, MCH 30.8, MCHC 32.6, RDW Std Deviation 46.4 H, RDW Coeff of Cata 13.4, Plt Count 283, MPV 10.3, Immature Gran % (Auto) 0.100, Neut % (Auto) 57.2, Lymph % (Auto) 31.9, [place] % (Auto) 8.6, Eos % (Auto) 1.8, Baso % (Auto) 0.4, Absolute Neuts (auto) 3.9, Absolute Lymphs (auto) 2.15, Nucleated RBC % 0 03/17/22 13:45: Sodium 139, Potassium 4.5, Chloride 106, Carbon Dioxide 27.0, Anion Gap 6, BUN 16, Creatinine 1.12 H, Estim Creat Clear Calc 29.22, Est GFR (MDRD) Af Amer 60, Est GFR (MDRD) Non-Af 50 L, BUN/Creatinine Ratio 14.3, Glucose 99, Calcium 9.5, Total Bilirubin 0.40, AST 15, ALT 20, Alkaline Phosphatase 61, Troponin I High Sens 16, Total Protein 7.0, Albumin 3.4, Globulin 3.6, Albumin/Globulin Ratio 0.9 03/17/22 : Urine Color Straw, Urine Clarity Clear, Urine pH 7.0, Ur Specific [place] 1.005, Urine Protein Negative, Urine Glucose (UA) Normal, Urine Ketones Negative, Urine Occult Blood Negative, Urine Nitrite Negative, Urine Bilirubin Negative, Urine Urobilinogen Normal, Ur Leukocyte Esterase 25 H, Urine RBC 0 SEEN, Urine WBC 0 SEEN, Ur Squamous Epith Cells 0 SEEN, Urine Bacteria 0 SEEN, Urine Mucus 0 SEEN Radiology Impression Brain CT 03/17/22 14:12 IMPRESSION: Normal unenhanced CT scan of the brain. Electronically Signed: Jose Navarrete MD at 14:28 EDT , Assessment & Plan Assessment/Plan (1) Vertigo: PLAN: The patient is an 81 y/o F w/ PMHx: PAF, HTN, HLD, Hx Sinus bradycardia, Hypothyroidism who presents to the [facility] [place] ED on 03/17/22 with history of onset vertiginous type symptoms initially starting 2 days prior to current presentation while she was at [employer] with a 3-hour episode specifically when she quickly stood up and moved her head to the left with room spinning sensation with nausea with no emesis but this resolved however it reoccurred on a.m. of day of presentation prompting her son to bring her for evaluation. #1. Vertigo, intractable: Do suspect benign positional vertigo given specific symptom onset with certain movements of the neck, EKG in ED w/ sinus rhythm without evidence of acute ischemia, CT of the brain with no acute intracranial findings, initial trop normal. Will admit to PCU to be cautious in case ongoing and need for MRI although patient is reticent, will maintain on fall precautions, patient did report some improvement with meclizine however still symptomatic in the ED therefore will transition and trial low-dose Valium, judiciously hydrate, as needed antiemetics. If symptoms are ongoing as noted may need to consider MRI of the brain however patient is unsure if she will allow this to be performed or not. PT consulted. #2. PAF: Patient in sinus rhythm, not anticoagulated, will continue aspirin, decreasing beta-carola given notable bradycardia. #3. History sinus bradycardia: Patient with bradycardia in the 40s in the ED and per discussion with son patient occasionally does complain of dizziness however this is very different from her current vertiginous presentation, will decrease her beta-carola and continue to monitor. #4. Hypertension: Continue home regimen including lisinopril, Norvasc, given notable bradycardia in the ED we will decrease patient atenolol, PRN hydralazine. #5. Hyperlipidemia: Patient not on statin therapy, defer to outpatient. #6. Hypothyroidism: Continue home synthroid regimen. #7. DVT prophylaxis: SCDs, Lovenox. #8. CODE status: Patient does not have healthcare power mergers and acquisitions attorney nor living will in place. Discussed CODE status at length including difference between FULL code, DNR-CCA and DNR-CC status. Following discussions about the differences in these status, requested Full Code status. Charges/Coding Visit Charges OBSV E&M: 76893 Initial observation care L3
[2022-03-17] MEDS: 0.9% Normal Saline 1,000 ML 100 ML IV (17:31)
[2022-03-17] MEDS: Aspirin 81 MG TAB.CHEW PO (17:34)
[2022-03-17] MEDS: diazePAM 2 MG Tablet PO (17:34)
[2022-03-17] MEDS: Atenolol 50 MG Tablet PO (21:02)
[2022-03-17] MEDS: Lisinopril 20 MG Tablet PO (21:02)
[2022-03-18] VITALS (8 sets, daily range): BP systolic 134–157; BP diastolic 47–84; PULSE 53–58; RESP 16–18; TEMP 36.3–36.6; O2SAT 95–98
[2022-03-18 06:14] LABS: Absolute Lymphocyte Count 2.06 X10^3/uL (0.83-4.51); Absolute Neutrophil Count 3.4 X10^3/uL (2.0-7.7); Basophil# 0.03 X10^3/uL; Basophil% 0.5 % (0-1); Eosinophil# 0.13 X10^3/uL; Eosinophils% 2.1 % (0-5); Hematocrit 33.9 % (37-47); Hemoglobin 10.9 g/dL (12.0-15.0); Lymphocyte # 2.06 X10^3/ul (0.83-4.51); Lymphocyte % 32.9 % (19-41); Mean Corp Hgb Conc 32.2 g/dL (32-36); Mean Corpuscular Hgb 30.4 pg (27.0-32.0); Mean Corpuscular Volume 94.7 fL (81-99); Mean Platelet Vol. 10.7 fl (6.2-12.0); Monocyte# 0.61 X10^3/uL; Monocyte% 9.7 % (0-10); NRBC Flagged by Analyzer 0 % (0-5); Neutrophil # 3.41 X10^3/uL (2.7-7.7); Neutrophil % 54.5 % (47-70); Platelet Count 241 K/mm3 (150-450); RBC Distribution Width CV 13.6 % (11.6-14.6); RBC Distribution Width SD 47.1 fl (35.1-43.9); Red Blood Count 3.58 M/mm3 (4.2-5.4); White Blood Count 6.3 K/mm3 (4.4-11.0)
[2022-03-18] MEDS: Levothyroxine 25 MCG TABLET PO (06:15)
[2022-03-18 06:58] LABS: AST(SGOT) 14 U/L (15-37); Alanine Aminotransfer ALT/SGPT 17 U/L (13-56); Albumin, Serum 2.8 g/dL (3.2-5.0); Alkaline Phosphatase 47 U/L (45-117); Anion Gap 6 (5-15); BUN 12 mg/dL (7-18); BUN/Creat Ratio 12.1 RATIO (10-20); Calcium,Total 8.2 mg/dL (8.5-10.1); Chloride 114 mmol/L (98-107); Creatinine, Serum 0.99 mg/dL (0.55-1.02); EST Glomerular Filtration Rate 57 mL/min (>60); Est Glom Filt Rate - Afr Amer 69 mL/min (>60); Estimated Creatinine Clearance 31.47 ml/min; Globulin 2.9 g/dL (2.2-4.2); Glucose 89 mg/dL (74-106); Potassium 4.2 mmol/L (3.5-5.1); Protein, Total 5.7 g/dL (6.4-8.2); Sodium Level 143 mmol/L (136-145)
[2022-03-18] MEDS: Atenolol 50 MG Tablet PO (09:31)
[2022-03-18] MEDS: Lisinopril 20 MG Tablet PO (09:31)
[2022-03-18] MEDS: amLODIPine 5 MG Tablet PO (09:31)
[2022-03-18] MEDS: Enoxaparin 40 MG/0.4 ML Syringe SC (09:31)
--- NOTE | 2022-03-18 12:25 | PCM.DC ---
Discharge Instructions Diet Discharge Diet: Low fat / Low cholesterol and 2000 mg Sodium Diet Activity Discharge Activity: Return to Normal Activity Follow Up Care Test Results: Test results from this visit will be discussed in further detail at your follow-up appointment, if applicable. Discharge Plan Admission Admit Date/Time: 03/17/22 16:39 Primary Reason for Your Visit: Vertigo Attending Provider: Ling Greene Primary Care Provider: Carlitos Wise Discharge Orders/Prescriptions Prescriptions: Continued amlodipine [Norvasc] 5 mg tablet 5 mg PO DAILY Qty: 90 RF: 3 aspirin 81 MG tablet,chewable 81 mg PO DAILY@1700 RF: 0 levothyroxine 25 mcg tablet 25 mcg PO DAILY RF: 0 lisinopril 20 mg tablet 20 mg PO BID Qty: 60 RF: 12 atenolol 100 mg tablet 100 mg PO BID Qty: 180 RF: 3 Referrals / Follow Up: Carlitos Wise DO [Primary Care Provider] - Disposition Disposition (needs filled in before D/C Order can be placed): Home, Self Care
[2022-03-18] MEDS: 0.9% Saline Lock 10 ML Syringe IV (12:37)
--- NOTE | 2022-03-18 14:02 | DS.PCM_ITS ---
Providers Date of Admission: 03/17/22 Date of Discharge: 03/18/22 Primary Care Physician: Dr. Carlitos Wise, DO Reason For Visit: VERTIGO Diagnosis Discharge Diagnosis (1) Vertigo: Status: Acute Code(s): R42 - Dizziness and giddiness Medications at Discharge Home Medications aspirin 81 mg PO DAILY@1700 05/03/14 amlodipine 5 mg tablet 5 mg PO DAILY #90 tab 07/23/21 lisinopril 20 mg tablet 20 mg PO BID #60 tab 09/08/21 levothyroxine 25 mcg PO DAILY 03/17/22 atenolol 50 mg PO BID 30 Days #60 tab 03/18/22 meclizine 12.5 mg PO TID PRN #15 tab 03/18/22 Hospital Course Operations None Procedures None Summary of Care Provided Minutes Spent on Discharge: 35 Hospital Course: 81 y/o female with PMHx of PAF, Hypertension, hyperlipidemia, who presents with vertigo that started 2 days prior to arrival. This was the second episode. She had a previous episodes that lasted about 3 hours. Patient admitted to ringing in the ears that was not new. In the ED, CT of the head was unremarkable. Patient was given meclizine. She had concerns about returning home. She was admitted to the PCU and monitored with no acute finding. Orthostatic vitals were minimally positive. Patient received IV fluids. She was recommende d to have an MRI of the brain but patient declined. Her vertigo was resolved during her hospital stay. She was ambulated and did not have any dizziness. She is seen by physical therapy and taught vestibular therapy exercises. She was also given a prescription for outpatient vestibular therapy. She will follow-up with her primary care doctor within a week. She was given a prescription for meclizine. Physical Exam Narrative Physical exam: General: Alert, Oriented x3, Cooperative, No apparent distress HEENT: Atraumatic Oral: Moist Mucosa Neck: Supple Lungs: Clear to auscultation Cardiovascular: HS I+II, regular, no murmurs Abdomen: Bowel Sounds Present, Soft, Non Tender Extremities: No edema Skin: No rashes, No breakdown Neurological: Grossly intact Psych/Mental Status: Appropriate Weight / BMI Weight Weight: 84.8 kg Body Mass Index (BMI) 36.2 ABG / Lab / Microbiology Data Result Diagrams: 03/18/22 05:25 03/18/22 05:25 Laboratory: Laboratory Results - last 24 hr 03/17/22 13:45: Sodium 139, Potassium 4.5, Chloride 106, Carbon Dioxide 27.0, Anion Gap 6, BUN 16, Creatinine 1.12 H, Estim Creat Clear Calc 29.22, Est GFR (MDRD) Af Amer 60, Est GFR (MDRD) Non-Af 50 L, BUN/Creatinine Ratio 14.3, Glucose 99, Calcium 9.5, Total Bilirubin 0.40, AST 15, ALT 20, Alkaline Phosphatase 61, Troponin I High Sens 16, Total Protein 7.0, Albumin 3.4, Globulin 3.6, Albumin/Globulin Ratio 0.9 03/17/22 : Urine Color Straw, Urine Clarity Clear, Urine pH 7.0, Ur Specific [place] 1.005, Urine Protein Negative, Urine Glucose (UA) Normal, Urine Ketones Negative, Urine Occult Blood Negative, Urine Nitrite Negative, Urine Bilirubin Negative, Urine Urobilinogen Normal, Ur Leukocyte Esterase 25 H, Urine RBC 0 SEEN, Urine WBC 0 SEEN, Ur Squamous Epith Cells 0 SEEN, Urine Bacteria 0 SEEN, Urine Mucus 0 SEEN 03/18/22 05:25: WBC 6.3, RBC 3.58 L, Hgb 10.9 L, Hct 33.9 L, MCV 94.7, MCH 30.4, MCHC 32.2, RDW Std Deviation 47.1 H, RDW Coeff of Cata 13.6, Plt Count 241, MPV 10.7, Immature Gran % (Auto) 0.300, Neut % (Auto) 54.5, Lymph % (Auto) 32.9, [place] % (Auto) 9.7, Eos % (Auto) 2.1, Baso % (Auto) 0.5, Absolute Neuts (auto) 3.4, Absolute Lymphs (auto) 2.06, Nucleated RBC % 0 03/18/22 05:25: Sodium 143, Potassium 4.2, Chloride 114 H, Carbon Dioxide 23.0, Anion Gap 6, BUN 12, Creatinine 0.99, Estim Creat Clear Calc 31.47, Est GFR (MDRD) Af Amer 69, Est GFR (MDRD) Non-Af 57 L, BUN/Creatinine Ratio 12.1, Glucose 89, Calcium 8.2 L, Total Bilirubin 0.50, AST 14 L, ALT 17, Alkaline Phosphatase 47, Total Protein 5.7 L, Albumin 2.8 L, Globulin 2.9, Albumin/Tasha bulin Ratio 1.0 Radiography Diagnostic Testing: Radiology Impression Brain CT 03/17/22 14:12 IMPRESSION: Normal unenhanced CT scan of the brain. Electronically Signed: Jose Navarrete MD at 14:28 EDT , D/C Instructions Discharge Diet: Low fat / Low cholesterol and 2000 mg Sodium Diet Meaningful Use Info Meaningful Use Diagnoses (Choose all that apply): None applicable Discharge Plan Admission Admit Date/Time: 03/17/22 16:39 Primary Reason for Your Visit: Vertigo Attending Provider: Ling Greene Primary Care Provider: Carlitos Wise Instructions Patient Instructions: Dizziness Vertigo and Balance ..., Vestibular Rehabilitation Therapy, [facility] Additional Instructions / Restrictions: Take note of referral for vestibular rehab. Taker your blood pressure daily. Discharge Orders/Prescriptions Prescriptions: New atenolol 50 mg Tablet 50 mg PO BID 30 Days Qty: 60 RF: 0 meclizine 12.5 mg tablet 12.5 mg PO TID PRN (Reason: vertigo) Qty: 15 RF: 0 Continued amlodipine [Norvasc] 5 mg tablet 5 mg PO DAILY Qty: 90 RF: 3 aspirin 81 MG tablet,chewable 81 mg PO DAILY@1700 RF: 0 levothyroxine 25 mcg tablet 25 mcg PO DAILY RF: 0 lisinopril 20 mg tablet 20 mg PO BID Qty: 60 RF: 12 Discontinued atenolol 100 mg tablet 100 mg PO BID Qty: 180 RF: 3 Referrals / Follow Up: Carlitos Wise DO [Primary Care Provider] - In 1 Week Disposition Disposition (needs filled in before D/C Order can be placed): Home, Self Care Charges/Coding Visit Charges OBSV E&M: 96637 Observation care discharge
--- NOTE | 2022-03-18 14:19 | CASEMGMT ---
Per therapy, pt would benefit from script for OP vestibular therapy. Pt provided with script and states she is unsure where she would go and if she will do it. Pt/son voice no further questions/concerns/needs. Tyrese FONTANA CM
--- NOTE | 2022-03-18 14:34 | PHA.DC.MR ---
Pharmacy Service has performed discharge medication reconciliation for this patient. The patient's discharge medication list was reviewed for discrepancies and discrepancies were resolved. Home Medications aspirin 81 mg PO DAILY@1700 05/03/14 amlodipine 5 mg tablet 5 mg PO DAILY #90 tab 07/23/21 lisinopril 20 mg tablet 20 mg PO BID #60 tab 09/08/21 levothyroxine 25 mcg PO DAILY 03/17/22 atenolol 50 mg PO BID 30 Days #60 tab 03/18/22
== END 2022-03-18 12:24 | disposition home or self-care (01) ==
LOC: ED 16:28 → PCU 17:01
PROVIDERS: Admitting Provider Family Medicine; Emergency Provider Emergency Medicine; PCP Family Medicine; Visit Provider Internal Medicine
DX: R42 Dizziness and giddiness (principal); I48.0 Paroxysmal atrial fibrillation; Z79.82 Long term (current) use of aspirin; H93.19 Tinnitus, unspecified ear; E78.5 Hyperlipidemia, unspecified; I10 Essential (primary) hypertension; R11.0 Nausea; R00.1 Bradycardia, unspecified; Z79.899 Other long term (current) drug therapy; Z79.890 Hormone replacement therapy; E03.9 Hypothyroidism, unspecified
CPT/HCPCS: 36415; 70450; 80053; 81001; 84484; 85025; 93005; 96360; 96361; 96372; 97162; 97166; 99218; 99285; J7030; J7040; A4216; G0378

== ENCOUNTER → 2022-05-06 | Outpatient (CLI) | payer MEDICARE, SELFPAY ==
[2022-05-06 15:25] LABS: Thyroid Stim Hormone (TSH) 4.04 uIU/mL (0.358-3.74)
== END | disposition home or self-care (01) ==
LOC: BIMLAB 13:37
PROVIDERS: PCP Family Medicine; Referring Provider Family Medicine; Visit Provider Family Medicine
DX: E03.9 Hypothyroidism, unspecified (principal)
CPT/HCPCS: 36415; 84443

== ENCOUNTER 2022-10-09 17:07 | Emergency (ER) | payer MEDICARE, SELFPAY ==
[2022-10-09 17:09] VITALS: BP 134/68; PULSE 61; RESP 16; TEMP 36.7; O2SAT 98; BMI 34.4
--- NOTE | 2022-10-09 17:23 | ED.RN ---
NO VISUAL ACUITY REQUIRED PER DR. COHEN.
--- NOTE | 2022-10-09 17:24 | EDS_ITS ---
HPI <GALLO Hope - Last Filed: 10/09/22 18:26> History of Present Illness Chief Complaint: Eye Problem Narrative Narrative: 81-year-old female with history of hypertension, hypothyroidism hyperlipidemia presents the emergency department with spontaneous bruising to the right eye. Patient states at noon she looked in the mirror there was nothing there. Approximately 4:30 PM today, she was talking to the mailman who mentioned that she has bruising under her right eye. Patient did not have any idea how she got this bruise, she denies any fall, denies any blood disorder. Patient is here for evaluation. Patient denies any other bruises anywhere else. Denies any significant trauma or fall. [facility] <GALLO Hope - Last Filed: 10/09/22 18:26> [facility] Medical History Atrial fibrillation, controlled Atrial premature depolarization Cardiac dysrhythmia Contraction, premature ventricular Ectopic atrial tachycardia Ectopic cardiac beats Essential hypertension History of ovarian cyst Hyperlipemia Hypertension Mitral valve disorder Nonrheumatic mitral (valve) insufficiency Palpitations Paroxysmal atrial fibrillation Sinus bradycardia Syncope and collapse Ventricular premature depolarization Home Medications aspirin 81 mg chewable tablet 81 mg PO DAILY@1700 05/03/14 [History Last Taken 03/16/22] levothyroxine 50 mcg tablet 50 mcg PO DAILY 03/26/22 [History Last Taken Unknown] meclizine 25 mg tablet 12.5 mg PO TID PRN vertigo 03/26/22 [History Last Taken Unknown] atenolol 50 mg tablet 50 mg PO BID 3 months #180 tabs 05/06/22 [Rx Last Taken Unknown] meloxicam 7.5 mg tablet 7.5 mg PO DAILY PRN pain #90 tabs 05/06/22 [Rx Last Taken Unknown] amlodipine 5 mg tablet See Rx Instructions .Route .COMPLEX #90 tabs 07/29/22 [Rx Last Taken Unknown] lisinopril 20 mg tablet See Rx Instructions .Route .COMPLEX #180 tabs 09/28/22 [Rx Last Taken Unknown] Allergy/AdvReac Type Severity Reaction Status Date / Time Penicillins Allergy Anaphylaxis Verified 10/09/22 17:08 codeine AdvReac Abd Verified 10/09/22 17:08 cramps/diarrhea Family History Father Heart disease Myocardial infarction, Onset Age: 59 Black lung disease Brother Cancer Sister Cancer Breast Brother Bright's disease Brother Multiple sclerosis Surgical History History of appendectomy History of cholecystectomy History of esophageal surgery History of tubal ligation Social History household members: none Smoking Status: Never smoker alcohol intake: never substance use type: does not use caffeine: Yes Type: coffee Number of servings: 2 what type of physical activity do you participate in: walking frequency: 3-4 times per week ROS <GALLO Hope - Last Filed: 10/09/22 18:26> ROS ED ROS Narrative Constitutional: Negative for fever, chills, weight loss, weakness Eyes: Negative for vision loss, vision change, double vision ENT: Negative for any sore throat, ear pain, congestion Cardiovascular: Negative for any chest pain, tightness, palpitations Respiratory: Negative for any cough, sputum production, hemoptysis, dyspnea, dyspnea on exertion, orthopnea Gastrointestinal: Negative for any abdominal pain, nausea, vomiting, diarrhea, constipation, blood in stool, blood in vomit : Negative for any urinary frequency, dysuria, retention, blood in urine Muscle skeletal: Negative for any muscle joint pain, stiffness, myalgias, arthralgias, neck pain, back pain Neurological: Negative for any headache, syncope, numbness or tingling, dizziness Skin: Negative for any rashes, lumps, itching, abrasions, lacerations. Positive for ecchymosis under the right eye Psychiatric: Negative for any depression, anxiety, stress, suicidal ideation, homicidal ideation Hematologic: Negative for any easy bruising, excessive bruising, easy bleeding Allergies: Negative for any eczema, hives, rash EXAM <GALLO Hope - Last Filed: 10/09/22 18:26> Physical Exam Narrative Exam Narrative: Vital signs reviewed. HEET: Head normocephalic atraumatic, TMs clear bilaterally. Posterior pharynx is clear, moist mucous membranes. Nares clear bilaterally. Pupils are equal round reactive to light. There is slight ecchymosis below the lower lid. There is no signs of trauma. There is no tenderness on palpation to the orbits. EOMs are intact. Fluorescein staining was completed, no corneal abrasion seen. No Ju[place]o sign. No foreign body noted. Neck: Supple with no lymphadenopathy or tenderness. No signs of meningismus, negative jolt sign. Cardiac: Regular rate and rhythm no murmurs gallops or rubs, equal peripheral pulses bilaterally. Respiratory: Lungs clear to auscultation bilaterally. No chest tenderness. Abdomen: Soft, nontender, nondistended. No abdominal bruit or pulsatile masses. No hepatosplenomegaly Extremities: No peripheral edema, no signs of gross trauma or deformity. Active full range of motion of all extremities. Neuro: Cranial nerves II through XII intact, no focal neurological deficits. Skin: Clean dry and intact with no rash, purpura, petechiae, vesicles or pustules. Backs/flank: No CVA tenderness, no midline spinal tenderness, no deformity. Psych: Normal mood and affect. No SI, HI or acute psychosis. Const Vital Signs: 10/09/22 17:09 Temperature 98.1 F Temperature Source Temporal Pulse Rate 61 Respiratory Rate 16 Blood Pressure 134/68 H Blood Pressure Mean 90 Pulse Ox 98 Oxygen Delivery Method Room Air [facility] <GALLO Hope - Last Filed: 10/09/22 18:26> [facility] Lab Data Attestation: I reviewed the patient's lab results. Treatment and Re-Evaluation Narrative: Patient appears well, patient appears nontoxic, vital signs are stable. Patient presents to the emergency department with complaints of bruising on her right eye. Patient's physical examination was grossly unremarkable. Patient does have some ecchymosis around the right eye however there is no tenderness, signs of trauma. Patient's eye exam shows no corneal abrasion, acute infection. Patient did receive a CBC to rule out any thrombocytopenia. Patient's CBC was unremarkable. Patient was educated regarding bruises, she is instructed to follow-up with her PCP. At this time, there is no evidence of suspect any acute process. She is instructed return for any worsening bruising, fever chills nausea vomiting. Patient will do full body checks over the next couple days. <Dr. Dina Wang DO - Last Filed: 10/09/22 18:16> [facility] Narrative Medical decision making narrative: I have personally performed a face to face assessment of the patient and have reviewed the LEXX Note. I performed a substantive portion of the visit including all aspects of the following. My le findings include: History is [patient presents the emergency department with bruising underneath her right eye that she noticed this afternoon. Patient seen together with physician shop assistant. Patient denies any trauma. Patient had no idea that she had bruising there until the mailman pointed it out. Patient saw herself in the mirror at noon and there was no bruising there at that time. Patient is not on blood thinners. She denies easy bruising otherwise. Denies vision changes.] Exam is [HEENT-PERRLA, EOMI. Cranial nerves II through XII grossly intact. TMs clear. Mucous membranes moist. No adenopathy. Patient has an area of ecchymosis to the right lower medial portion of the lid. Globe is intact and appears otherwise normal. Cardiovascular-regular rate and rhythm without murmur or ectopy Lungs-clear to auscultation, chest wall stable without crepitus or subcu emphysema Abdomen-normoactive bowel sounds, soft, nontender, no rebound or rigidity, no peritoneal signs. Extremities-intact ?4, normal range of motion, normal pulses, atraumatic] Medical Decison Making [patient had a platelet count check which was normal. At this point I suspect she likely had a spontaneous hemorrhage. I do not feel any other treatment is indicated. Patient to follow-up with primary care physician as needed.] Other additions or changes: [None] Discharge Plan Triage Chief Complaint: Eye Problem ED Midlevel Provider: Vidal Martinez ED Provider: Dina Wang Dx/Rx/DC Orders Clinical Impression: Ecchymosis Instructions: Black Eye Prescriptions: No Action levothyroxine 50 mcg tablet 50 mcg PO DAILY meclizine 25 mg tablet 12.5 mg PO TID PRN (Reason: vertigo) meloxicam 7.5 mg tablet 7.5 mg PO DAILY PRN (Reason: pain) Qty: 90 1RF atenolol 50 mg tablet 50 mg PO BID 90 Days Qty: 180 1RF aspirin 81 MG tablet,chewable 81 mg PO DAILY@1700 amlodipine 5 mg tablet See Rx Instructions .ROUTE .COMPLEX Qty: 90 3RF Dose Instruction: take 1 tablet by mouth once daily Rx Instructions: take 1 tablet by mouth once daily lisinopril 20 mg tablet See Rx Instructions .ROUTE .COMPLEX Qty: 180 3RF Dose Instruction: take 1 tablet by mouth twice a day Rx Instructions: take 1 tablet by mouth twice a day Primary Care Provider: Carlitos Wise Referrals: Carlitos Wise, DO [Primary Care Provider] -
[2022-10-09 17:51] LABS: Absolute Lymphocyte Count 2.42 X10^3/uL (0.83-4.51); Absolute Neutrophil Count 2.5 X10^3/uL (2.0-7.7); Basophil# 0.03 X10^3/uL; Basophil% 0.5 % (0-1); Eosinophil# 0.16 X10^3/uL; Eosinophils% 2.8 % (0-5); Hematocrit 40.1 % (37-47); Hemoglobin 12.7 g/dL (12.0-15.0); Lymphocyte # 2.42 X10^3/ul (0.83-4.51); Lymphocyte % 42.8 % (19-41); Mean Corp Hgb Conc 31.7 g/dL (32-36); Mean Corpuscular Hgb 30.4 pg (27.0-32.0); Mean Corpuscular Volume 95.9 fL (81-99); Monocyte# 0.58 X10^3/uL; Monocyte% 10.2 % (0-10); NRBC Flagged by Analyzer 0 % (0-5); Neutrophil # 2.46 X10^3/uL (2.7-7.7); Neutrophil % 43.5 % (47-70); Platelet Count 302 K/mm3 (150-450); RBC Distribution Width CV 13.2 % (11.6-14.6); RBC Distribution Width SD 46.7 fl (35.1-43.9); Red Blood Count 4.18 M/mm3 (4.2-5.4); White Blood Count 5.7 K/mm3 (4.4-11.0)
[2022-10-09] MEDS: Fluorescein 1 MG STRIP 1 STRIP RIGHT EYE (17:56)
[2022-10-09] MEDS: Tetracaine 0.5% Ophthalmic Bottle 1 DRP RIGHT EYE (17:56)
== END 2022-10-09 18:34 | disposition home or self-care (01) ==
LOC: ED 17:56
PROVIDERS: Nurse Practitioner; Emergency Provider Emergency Medicine; PCP Family Medicine; Visit Provider Emergency Medicine
DX: S05.11XA Contusion of eyeball and orbital tissues, right eye, initial encounter (principal); I48.0 Paroxysmal atrial fibrillation; I10 Essential (primary) hypertension; E78.5 Hyperlipidemia, unspecified; E03.9 Hypothyroidism, unspecified; Z79.82 Long term (current) use of aspirin
CPT/HCPCS: 85025; 99282

== ENCOUNTER → 2022-11-06 | Outpatient (CLI) | payer MEDICARE, SELFPAY ==
[2022-11-06 15:58] LABS: ALB/GLOB Ratio 1.1 RATIO (0.9-2.4); AST(SGOT) 12 U/L (15-37); Alanine Aminotransfer ALT/SGPT 17 U/L (13-56); Albumin, Serum 3.4 g/dL (3.2-5.0); Alkaline Phosphatase 65 U/L (45-117); Anion Gap 6 (5-15); BUN 13 mg/dL (7-18); Calcium,Total 9.8 mg/dL (8.5-10.1); Chloride 111 mmol/L (98-107); Creatinine, Serum 1.08 mg/dL (0.55-1.02); EST Glomerular Filtration Rate 52 mL/min (>60); Est Glom Filt Rate - Afr Amer 62 mL/min (>60); Globulin 3.2 g/dL (2.2-4.2); Glucose 95 mg/dL (74-106); Potassium 4.9 mmol/L (3.5-5.1); Protein, Total 6.6 g/dL (6.4-8.2); Sodium Level 142 mmol/L (136-145); Thyroid Stim Hormone (TSH) 4.18 uIU/mL (0.358-3.74)
== END | disposition home or self-care (01) ==
LOC: BIMLAB 11:47
PROVIDERS: PCP Family Medicine; Referring Provider Internal Medicine; Visit Provider Internal Medicine
DX: I10 Essential (primary) hypertension (principal); Z79.899 Other long term (current) drug therapy; E03.9 Hypothyroidism, unspecified
CPT/HCPCS: 36415; 80053; 84443

== ENCOUNTER 2023-01-23 17:02 | Emergency (ER) | payer MEDICARE, SELFPAY ==
[2023-01-23 17:03] VITALS: BP 149/62; PULSE 54; RESP 14; TEMP 35.8; O2SAT 100; BMI 34.1
--- NOTE | 2023-01-23 17:15 | EDS_ITS ---
HPI History of Present Illness Chief Complaint: Lower Extremity Injury Detail of Chief Complaint: Right foot injury Informant: patient Occured/Mechanism Mechanism/Context: Yes crush Onset/Context/Timing Onset: Weeks (1 week) Narrative Narrative: Patient present secondary to right foot pain. She states she dropped a table knife onto her barefoot about a week ago. The heavy end of the knife landed just between her second and third toes. Over the last several days she had increasing pain. She states the pain is across the MTP joints. She denies any other injury. She has been taking Tylenol without improvement. [facility] Medical History Atrial fibrillation, controlled Atrial premature depolarization Cardiac dysrhythmia Contraction, premature ventricular Difficulty swallowing Ectopic atrial tachycardia Ectopic cardiac beats Essential hypertension Flu vaccine need History of ovarian cyst Hyperlipemia Hypertension Hypothyroidism Mitral valve disorder Nonrheumatic mitral (valve) insufficiency Palpitations Paroxysmal atrial fibrillation Sinus bradycardia Syncope and collapse Ventricular premature depolarization Vertigo Home Medications aspirin 81 mg chewable tablet 81 mg PO DAILY@1700 05/03/14 [History Last Taken 03/16/22] levothyroxine 50 mcg tablet 50 mcg PO DAILY 03/26/22 [History Last Taken Unknown] meloxicam 7.5 mg tablet 7.5 mg PO DAILY PRN pain #90 tabs 05/06/22 [Rx Last Taken Unknown] amlodipine 5 mg tablet See Rx Instructions .Route .COMPLEX #90 tabs 07/29/22 [Rx Last Taken Unknown] lisinopril 20 mg tablet See Rx Instructions .Route .COMPLEX #180 tabs 09/28/22 [Rx Last Taken Unknown] atenolol 50 mg tablet 50 mg PO BID 3 months #180 tabs 10/26/22 [Rx Last Taken Unknown] Fluad Quad [id number](65yr up)(PF) 60 mcg (15 mcg x 4)/0.5mL IM syringe (flu vac 2021 [id number])) 60 mcg IM ONCE #0.5 mL 11/06/22 [Clinic Last Taken Unknown] meclizine 25 mg tablet 12.5 mg PO TID PRN vertigo 3 months #90 tabs 11/06/22 [Rx Last Taken Unknown] Allergy/AdvReac Type Severity Reaction Status Date / Time Penicillins Allergy Anaphylaxis Verified 01/23/23 17:03 codeine AdvReac Abd Verified 01/23/23 17:03 cramps/diarrhea Family History Father Heart disease Myocardial infarction, Onset Age: 59 Black lung disease Brother Cancer Sister Cancer Breast Brother Bright's disease Brother Multiple sclerosis Surgical History History of appendectomy History of cholecystectomy History of esophageal surgery History of tubal ligation Social History household members: none Smoking Status: Never smoker alcohol intake: never substance use type: does not use caffeine: Yes Type: coffee Number of servings: 2 what type of physical activity do you participate in: walking frequency: 3-4 times per week ROS ROS ED Constitutional Constitutional ED: Denies chills or fever(s) Eyes Eyes: Denies change in vision ENT ENT ED: Denies rhinorrhea or sore throat Cardiovascular Cardiovascular: Denies chest pain Respiratory/Chest Respiratory/Chest: Denies cough or dyspnea Gastrointestinal Gastrointestinal: Denies abdominal pain, nausea or vomiting Musculoskeletal Musculoskeletal: Reports extremity pain; Denies back pain Integumentary Denies Abrasions or rash Neurologic Neurologic: Denies headache(s), paresthesias or weakness Psychiatric Psychiatric: Denies anxiety or depression Allergic/Immunologic Allergic/Immunologic ED: Denies lip swelling or urticaria EXAM Physical Exam Const Vital Signs: 01/23/23 17:03 Temperature 96.4 F L Temperature Source Temporal Pulse Rate 54 L Respiratory Rate 14 Blood Pressure 149/62 H Blood Pressure Mean 91 Pulse Ox 100 Oxygen Delivery Method Room Air Positive well nourished and well developed General Appearance ED: well developed HEENT Reports normocephalic and head/scalp atraumatic Eyes PERRL and EOMs intact bilaterally Neck supple Chest Wall inspection of chest normal and palpation of chest normal Resp normal respiratory effort Cardio regular rate and regular rhythm GI non-tender Palpation: soft Extremity Extremity Narrative: Tenderness palpation on the MTP joints of the right foot. No erythema or edema. Good cap refill distally. No sign of infection in the webspaces. Neuro oriented x3 and no sensory deficits noted Sensorium / Orientation: alert Motor Exam: strength 5/5 throughout Psych mental status grossly normal Skin no rashes or lesions noted MDM MDM MDM Narrative Medical decision making narrative: Patient was given ibuprofen. Right foot x-rays obtained. Radiography Diagnostic Testing: Clinical Impression(s) from Imaging Studies Foot X-Ray 01/23/23 17:20 IMPRESSION: No acute findings in the right foot. Electronically Signed: Kole Sandoval MD at 17:51 EST Reading Location ID and State: [facility] / ID , Service support , Treatment and Re-Evaluation Narrative: Right foot x-ray per my interpretation reveals no obvious fracture. On the oblique view there is a line over the proximal aspect of the proximal phalanx third toe that appears abnormal. This does not appear on the AP view. I advised the patient that even if this is a small nondisplaced fracture treatment does not change. Dawson wrap will be applied to her foot. She is encouraged to use Tylenol or ibuprofen. Discharge Plan Triage Chief Complaint: Lower Extremity Injury ED Provider: Namrata Cavazos Dx/Rx/DC Orders Clinical Impression: Contusion of foot, right Instructions: ED Foot Contusion Prescriptions: No Action levothyroxine 50 mcg tablet 50 mcg PO DAILY meloxicam 7.5 mg tablet 7.5 mg PO DAILY PRN (Reason: pain) Qty: 90 1RF Fluad Quad (65y up)(PF) 60 mcg (15 mcg x 4)/0.5 mL syringe 60 mcg IM ONCE Qty: 0.5 0RF meclizine 25 mg tablet 12.5 mg PO TID PRN (Reason: vertigo) 90 Days Qty: 90 2RF aspirin 81 MG tablet,chewable 81 mg PO DAILY@1700 amlodipine 5 mg tablet See Rx Instructions .ROUTE .COMPLEX Qty: 90 3RF Dose Instruction: take 1 tablet by mouth once daily Rx Instructions: take 1 tablet by mouth once daily lisinopril 20 mg tablet See Rx Instructions .ROUTE .COMPLEX Qty: 180 3RF Dose Instruction: take 1 tablet by mouth twice a day Rx Instructions: take 1 tablet by mouth twice a day atenolol 50 mg tablet 50 mg PO BID 90 Days Qty: 180 1RF Primary Care Provider: Carlitos Wise Referrals: Carlitos Wise, [Primary Care Provider] - Srikanth England DPM [Med Staff - Active Staff] - As Needed Disposition Disposition: Home, Self Care
--- NOTE | 2023-01-23 17:20 | RAD_ITS ---
EXAM: XR RIGHT FOOT COMPLETE, 3 OR MORE VIEWS CLINICAL INDICATION: injury TECHNIQUE: Frontal, lateral and oblique views of the right foot. This report was created using [employer] report generation technology. COMPARISON: None. FINDINGS: BONES/JOINTS: There is an enthesophyte involving the posterior superior calcaneus at the site of insertion of the Achilles tendon. No acute fracture. No subluxation. Normal alignment. Preservation of the joint space. No sclerotic or destructive changes observed. SOFT TISSUES: Unremarkable. No soft tissue swelling or gas. No radiopaque foreign body. RAD/Foot min 3 Views IMPRESSION: No acute findings in the right foot. Electronically Signed: Kole Sandoval MD at 17:51 EST ,
[2023-01-23] MEDS: Ibuprofen 200 MG Tablet 400 MG PO (17:23)
== END 2023-01-23 18:48 | disposition home or self-care (01) ==
PROVIDERS: Emergency Provider Emergency Medicine; PCP Family Medicine; Visit Provider Emergency Medicine
DX: S90.31XA Contusion of right foot, initial encounter (principal); I48.0 Paroxysmal atrial fibrillation; I10 Essential (primary) hypertension; E78.5 Hyperlipidemia, unspecified; E03.9 Hypothyroidism, unspecified; W20.8XXA Other cause of strike by thrown, projected or falling object, initial encounter
CPT/HCPCS: 73630; 99282

== ENCOUNTER → 2023-11-05 | Outpatient (CLI) | payer MEDICARE, SELFPAY ==
[2023-11-05 12:23] LABS: Basophil# 0.03 X10^3/uL; Basophil% 0.4 % (0-1); Eosinophil# 0.13 X10^3/uL; Eosinophils% 1.6 % (0-5); Hematocrit 38.9 % (37-47); Hemoglobin 12.4 g/dL (12.0-15.0); Lymphocyte % 28.3 % (19-41); Mean Corp Hgb Conc 31.9 g/dL (32-36); Mean Corpuscular Hgb 30.4 pg (27.0-32.0); Mean Corpuscular Volume 95.3 fL (81-99); Mean Platelet Vol. 10.4 fl (6.2-12.0); Monocyte# 0.59 X10^3/uL; Monocyte% 7.3 % (0-10); NRBC Flagged by Analyzer 0 % (0-5); Neutrophil # 5.03 X10^3/uL (2.7-7.7); Neutrophil % 61.9 % (47-70); Platelet Count 355 K/mm3 (150-450); RBC Distribution Width CV 13.7 % (11.6-14.6); RBC Distribution Width SD 47.9 fl (35.1-43.9); Red Blood Count 4.08 M/mm3 (4.2-5.4); White Blood Count 8.1 K/mm3 (4.4-11.0)
[2023-11-05 12:54] LABS: AST(SGOT) 9 U/L (15-37); Alanine Aminotransfer ALT/SGPT 13 U/L (13-56); Albumin, Serum 3.4 g/dL (3.2-5.0); Alkaline Phosphatase 65 U/L (45-117); Anion Gap 4 (5-15); BUN 22 mg/dL (7-18); BUN/Creat Ratio 12.2 RATIO (10-20); Calcium,Total 9.5 mg/dL (8.5-10.1); Chloride 107 mmol/L (98-107); Cholesterol 215 mg/dL (200); Creatinine, Serum 1.81 mg/dL (0.55-1.02); EST Glomerular Filtration Rate 28 mL/min (>60); Est Glom Filt Rate - Afr Amer 34 mL/min (>60); Globulin 3.5 g/dL (2.2-4.2); Glucose 97 mg/dL (74-106); High Density Lipoprotein 56 mg/dL; Protein, Total 6.9 g/dL (6.4-8.2); Sodium Level 140 mmol/L (136-145); Thyroid Stim Hormone (TSH) 4.71 uIU/mL (0.358-3.74); Triglycerides 122 mg/dL; Very Low Density Lipoprotein 24 mg/dL (5-40)
== END | disposition home or self-care (01) ==
LOC: BIMLAB 11:30
PROVIDERS: PCP Family Medicine; Referring Provider Internal Medicine; Visit Provider Internal Medicine
DX: E03.9 Hypothyroidism, unspecified (principal); I10 Essential (primary) hypertension
CPT/HCPCS: 36415; 80053; 80061; 84443; 85025

== ENCOUNTER → 2023-12-13 | Outpatient (CLI) | payer MEDICARE, SELFPAY ==
[2023-12-13 16:08] LABS: Anion Gap 5 (5-15); BUN 20 mg/dL (7-18); BUN/Creat Ratio 13.5 RATIO (10-20); Calcium,Total 9.6 mg/dL (8.5-10.1); Chloride 111 mmol/L (98-107); Creatinine, Serum 1.48 mg/dL (0.55-1.02); EST Glomerular Filtration Rate 36 mL/min (>60); Est Glom Filt Rate - Afr Amer 43 mL/min (>60); Glucose 128 mg/dL (74-106); Potassium 4.6 mmol/L (3.5-5.1); Sodium Level 143 mmol/L (136-145)
== END | disposition home or self-care (01) ==
PROVIDERS: PCP Family Medicine; Referring Provider Internal Medicine; Visit Provider Internal Medicine
DX: N18.9 Chronic kidney disease, unspecified (principal)
CPT/HCPCS: 36415; 80048

== ENCOUNTER 2024-01-27 10:23 | Emergency (ER) | payer MEDICARE, SELFPAY ==
[2024-01-27] VITALS (15 sets, daily range): BP systolic 112–149; BP diastolic 69–100; PULSE 84–128; RESP 16–26; TEMP 36.1–37; O2SAT 95–100
--- NOTE | 2024-01-27 10:29 | ED.RN ---
PT MAD BECAUSE SHE HAD TO WAIT TO BE TRIAGED AND DID NOT IMMEDIATELY TO A ROOM.
[2024-01-27 10:55] LABS: Absolute Lymphocyte Count 2.91 X10^3/uL (0.83-4.51); Absolute Neutrophil Count 3.7 X10^3/uL (2.0-7.7); Basophil# 0.03 X10^3/uL; Basophil% 0.4 % (0-1); Eosinophil# 0.06 X10^3/uL; Eosinophils% 0.8 % (0-5); Hematocrit 42.2 % (37-47); Hemoglobin 13.3 g/dL (12.0-15.0); Lymphocyte # 2.91 X10^3/ul (0.83-4.51); Lymphocyte % 39.4 % (19-41); Mean Corp Hgb Conc 31.5 g/dL (32-36); Mean Platelet Vol. 10.7 fl (6.2-12.0); Monocyte# 0.62 X10^3/uL; Monocyte% 8.4 % (0-10); NRBC Flagged by Analyzer 0 % (0-5); Neutrophil # 3.73 X10^3/uL (2.7-7.7); Neutrophil % 50.6 % (47-70); Platelet Count 275 K/mm3 (150-450); RBC Distribution Width CV 13.9 % (11.6-14.6); RBC Distribution Width SD 48.8 fl (35.1-43.9); Red Blood Count 4.44 M/mm3 (4.2-5.4); White Blood Count 7.4 K/mm3 (4.4-11.0)
[2024-01-27 11:09] LABS: Anion Gap 9 (5-15); BUN 14 mg/dL (7-18); BUN/Creat Ratio 10.6 RATIO (10-20); Calcium,Total 9.5 mg/dL (8.5-10.1); Chloride 115 mmol/L (98-107); Creatinine, Serum 1.32 mg/dL (0.55-1.02); EST Glomerular Filtration Rate 41 mL/min (>60); Est Glom Filt Rate - Afr Amer 49 mL/min (>60); Glucose 104 mg/dL (74-106); Potassium 4.6 mmol/L (3.5-5.1); Sodium Level 144 mmol/L (136-145)
--- NOTE | 2024-01-27 12:13 | EKG12_ITS ---
Test Reason : SOB Blood Pressure : / mmHG Vent. Rate : 121 BPM Atrial Rate : 000 BPM P-R Int : 000 ms QRS Dur : 086 ms QT Int : 342 ms P-R-T Axes : 000 044 230 degrees QTc Int : 485 ms Atrial fibrillation with rapid ventricular response Nonspecific T wave abnormality Abnormal ECG Confirmed by Srikanth Bonilla ([id number]), editor news HARVINDER SEQUEIRA ([id number]) on 01/31/2024 2:09:17 PM Referred By: Confirmed By:Srikanth Bonilla
--- NOTE | 2024-01-27 12:20 | EX.ED.DYSGE1 ---
HPI <FERN Ewing - Last Filed: 01/27/24 19:18> History of Present Illness Chief Complaint: Shortness of Breath Narrative Narrative: 83-year-old female with PMH of HTN, HLD, A-fib, CKD presents after having 2 episodes of shortness of breath this morning around 6 AM and 10 AM. It just comes over her and is not associated with exertion. She has no chest pain, palpitations, nausea or vomiting, or diaphoresis. No recent fever or upper respiratory symptoms. She states recently she has had these episodes of shortness of breath and is not sure if it is her A-fib. She is on atenolol 50 mg twice daily and Eliquis. PFS <FERN Ewing - Last Filed: 01/27/24 19:18> [facility] Medical History (Updated 01/27/24 @ 13:31 by FERN Ewing) Atrial fibrillation, controlled Atrial premature depolarization Cardiac dysrhythmia CKD (chronic kidney disease) Contraction, premature ventricular Difficulty swallowing Ectopic atrial tachycardia Ectopic cardiac beats Essential hypertension Flu vaccine need History of ovarian cyst Hyperlipemia Hypertension Hypothyroidism Left foot pain Mitral valve disorder Nonrheumatic mitral (valve) insufficiency Osteoarthritis Palpitations Paroxysmal atrial fibrillation Sinus bradycardia Syncope and collapse Ventricular premature depolarization Vertigo Home Medications levothyroxine 50 mcg tablet 50 mcg PO DAILY 03/26/22 [History Last Taken Unknown] Fluad Quad [id number](65yr up)(PF) 60 mcg (15 mcg x 4)/0.5mL IM syringe (flu vac 2021 [id number](PF)) 60 mcg IM ONCE #0.5 mL 11/06/22 [Clinic Last Taken Unknown] aspirin 81 mg chewable tablet 81 mg PO BID 09/24/23 [History Last Taken Unknown] amlodipine 2.5 mg tablet 2.5 mg PO DAILY #90 tabs 12/21/23 [Rx Last Taken Unknown] atenolol 50 mg tablet 50 mg PO BID 3 months #180 tabs 12/21/23 [Rx Last Taken Unknown] furosemide 40 mg tablet (Lasix) 40 mg PO .3 times a week #36 tabs 12/21/23 [Rx Last Taken Unknown] lisinopril 20 mg tablet 20 mg PO BID #180 tabs 12/21/23 [Rx Last Taken Unknown] Allergy/AdvReac Type Severity Reaction Status Date / Time Penicillins Allergy Anaphylaxis Verified 11/05/23 10:47 codeine AdvReac Abd Verified 11/05/23 10:47 cramps/diarrhea Family History Father Heart disease Myocardial infarction, Onset Age: 59 Black lung disease Brother Cancer Sister Cancer Breast Brother Bright's disease Brother Multiple sclerosis Surgical History History of appendectomy History of cholecystectomy History of esophageal surgery History of tubal ligation Social History household members: none Smoking Status: Never smoker alcohol intake: never substance use type: does not use caffeine: Yes Type: coffee Number of servings: 2 what type of physical activity do you participate in: walking frequency: 3-4 times per week ROS <FERN Ewing - Last Filed: 01/27/24 19:18> ROS ED ROS Narrative Constitutional: Negative for fever, chills, malaise. CVS: Negative for palpitations, chest pain, syncope. Respiratory: Positive for shortness of breath. Negative for cough, orthopnea. GI: Negative for abdominal pain, nausea, vomiting, melena, hematochezia. EXAM <FERN Ewing - Last Filed: 01/27/24 19:18> Physical Exam Narrative Exam Narrative: CONST: Patient sitting in no acute distress. EYES: Normal inspection. NECK: Normal inspection. RESP: No respiratory distress, CTAB. CVS: Irregularly irregular rhythm between 110?115, no murmur, no gallop. SKIN: Color normal, no rash, warm, dry, intact. EXTREMITIES: Normal appearance, no pedal edema. NEURO: Oriented x4. PSYCH: Normal affect. Const Vital Signs: 01/27/24 10:27 01/27/24 10:47 01/27/24 11:49 Temperature 97 F L Temperature Source Temporal Pulse Rate 106 H 105 H Respiratory Rate 16 Respiratory Effort Respiratory Depth Respiratory Pattern Blood Pressure 112/75 Blood Pressure Mean 87 Pulse Ox 100 98 99 Oxygen Delivery Method Room Air Room Air 01/27/24 10:43 01/27/24 10:43 01/27/24 12:36 Temperature Temperature Source Pulse Rate 113 H Respiratory Rate 18 18 Respiratory Effort Respiratory Depth Respiratory Pattern Blood Pressure 135/100 H Blood Pressure Mean 111 Pulse Ox 97 97 Oxygen Delivery Method Room Air Room Air Room Air 01/27/24 12:37 01/27/24 12:56 01/27/24 13:00 Temperature Temperature Source Pulse Rate 114 H 112 H Respiratory Rate 20 H 24 H Respiratory Effort Normal Respiratory Depth Normal Respiratory Pattern Normal Blood Pressure 122/72 H 123/79 H Blood Pressure Mean 88 93 Pulse Ox 97 95 Oxygen Delivery Method Room Air Room Air 01/27/24 14:00 01/27/24 14:46 01/27/24 15:10 Temperature Temperature Source Pulse Rate 101 H 117 H 112 H Respiratory Rate 26 H 23 H 23 H Respiratory Effort Respiratory Depth Respiratory Pattern Blood Pressure 127/69 H 131/95 H 138/93 H Blood Pressure Mean 88 107 108 Pulse Ox 99 95 97 Oxygen Delivery Method Room Air Room Air Room Air 01/27/24 15:35 01/27/24 16:07 01/27/24 16:57 Temperature Temperature Source Pulse Rate 128 H 106 H 84 Respiratory Rate 26 H 26 H Respiratory Effort Respiratory Depth Respiratory Pattern Blood Pressure 149/87 H 122/87 H 123/76 H Blood Pressure Mean 107 98 91 Pulse Ox 98 97 Oxygen Delivery Method Room Air Room Air 01/27/24 17:25 Temperature 98.6 F Temperature Source Pulse Rate 87 Respiratory Rate 25 H Respiratory Effort Respiratory Depth Respiratory Pattern Blood Pressure 117/81 H Blood Pressure Mean 93 Pulse Ox 98 Oxygen Delivery Method <Dr. Enio Adam, DO - Last Filed: 01/27/24 17:31> Physical Exam Const Vital Signs: 01/27/24 10:27 01/27/24 10:47 01/27/24 11:49 Temperature 97 F L Temperature Source Temporal Pulse Rate 106 H 105 H Respiratory Rate 16 Respiratory Effort Respiratory Depth Respiratory Pattern Blood Pressure 112/75 Blood Pressure Mean 87 Pulse Ox 100 98 99 Oxygen Delivery Method Room Air Room Air 01/27/24 10:43 01/27/24 10:43 01/27/24 12:36 Temperature Temperature Source Pulse Rate 113 H Respiratory Rate 18 18 Respiratory Effort Respiratory Depth Respiratory Pattern Blood Pressure 135/100 H Blood Pressure Mean 111 Pulse Ox 97 97 Oxygen Delivery Method Room Air Room Air Room Air 01/27/24 12:37 01/27/24 12:56 01/27/24 13:00 Temperature Temperature Source Pulse Rate 114 H 112 H Respiratory Rate 20 H 24 H Respiratory Effort Normal Respiratory Depth Normal Respiratory Pattern Normal Blood Pressure 122/72 H 123/79 H Blood Pressure Mean 88 93 Pulse Ox 97 95 Oxygen Delivery Method Room Air Room Air 01/27/24 14:00 01/27/24 14:46 01/27/24 15:10 Temperature Temperature Source Pulse Rate 101 H 117 H 112 H Respiratory Rate 26 H 23 H 23 H Respiratory Effort Respiratory Depth Respiratory Pattern Blood Pressure 127/69 H 131/95 H 138/93 H Blood Pressure Mean 88 107 108 Pulse Ox 99 95 97 Oxygen Delivery Method Room Air Room Air Room Air 01/27/24 15:35 01/27/24 16:07 01/27/24 16:57 Temperature Temperature Source Pulse Rate 128 H 106 H 84 Respiratory Rate 26 H 26 H Respiratory Effort Respiratory Depth Respiratory Pattern Blood Pressure 149/87 H 122/87 H 123/76 H Blood Pressure Mean 107 98 91 Pulse Ox 98 97 Oxygen Delivery Method Room Air Room Air 01/27/24 17:25 Temperature 98.6 F Temperature Source Pulse Rate 87 Respiratory Rate 25 H Respiratory Effort Respiratory Depth Respiratory Pattern Blood Pressure 117/81 H Blood Pressure Mean 93 Pulse Ox 98 Oxygen Delivery Method [facility] <FERN Ewing - Last Filed: 01/27/24 19:18> [facility] Narrative Medical decision making narrative: History gathered from: Patient and family member Differential: A-fib, arrhythmia, ACS, CHF Patient has had 2 transient episodes of shortness of breath this morning with no other associated symptoms. She appears well and nontoxic. She is in A-fib RVR around 115 bpm. Vital signs stable. Lungs clear. No signs of fluid overload. She is not currently symptomatic. CBC and BMP unremarkable. Creatinine 1.32 is around baseline. EKG is A-fib RVR with no acute ischemia and troponin is 12. ED attending interpretation shows normal heart size, no acute infiltrate, edema, or effusion. Noted a right upper lobe opacity of unknown etiology. I cannot really appreciate a significant abnormality on the x-ray. She does not have any symptoms of pneumonia and I think she can follow-up outpatient for repeat imaging to ensure resolution. She remained persistently in A-fib RVR around 115 bpm and was treated with IV Lopressor 5 mg. Her transient episodes of dyspnea may be related to her A-fib and I recommended she follow-up with her solar applications development engineer. Return if symptoms worsen. She was discharged in stable condition. Lab Data Attestation: I reviewed the patient's lab results. Labs: Laboratory Results - last 24 hr 01/27/24 01/27/24 10:45 12:30 WBC 7.4 RBC 4.44 Hgb 13.3 Hct 42.2 MCV 95.0 MCH 30.0 MCHC 31.5 L RDW Std Deviation 48.8 H RDW Coeff of Cata 13.9 Plt Count 275 MPV 10.7 Immature Gran % (Auto) 0.400 Neut % (Auto) 50.6 Lymph % (Auto) 39.4 Pacific % (Auto) 8.4 Eos % (Auto) 0.8 Baso % (Auto) 0.4 Absolute Neuts (auto) 3.7 Absolute Lymphs (auto) 2.91 Nucleated RBC % 0 Sodium 144 Potassium 4.6 Chloride 115 H Carbon Dioxide 20.0 L Anion Gap 9 BUN 14 Creatinine 1.32 H Est GFR (MDRD) Af Amer 49 L Est GFR (MDRD) Non-Af 41 L BUN/Creatinine Ratio 10.6 Glucose 104 Calcium 9.5 Troponin I High Sens 12 Radiography Diagnostic Testing: Clinical Impression(s) from Imaging Studies Chest X-Ray 01/27/24 12:45 IMPRESSION: Focal right upper lobe opacity possible pneumonia, mass, or artifact from superimposition of chest wall structures. Recommend follow-up or CT. Electronically Signed: Nathaly Pino MD at 13:00 EST Reading Location ID and State: [address] [place] [address] Tel , Service support , ED attending interpretation of 1-view chest x-ray shows normal heart size, no acute infiltrate, edema, or effusion. EKG Initial EKG: Attestation: I personally reviewed and interpreted this EKG as follows: Interpretation: Atrial Fibrillation Comments: A-fib RVR at 121 bpm Nonspecific T wave abnormality, no STEMI <Dr. Enio Adam, DO - Last Filed: 01/27/24 17:31> [facility] Lab Data Labs: Laboratory Results - last 24 hr 01/27/24 01/27/24 10:45 12:30 WBC 7.4 RBC 4.44 Hgb 13.3 Hct 42.2 MCV 95.0 MCH 30.0 MCHC 31.5 L RDW Std Deviation 48.8 H RDW Coeff of Cata 13.9 Plt Count 275 MPV 10.7 Immature Gran % (Auto) 0.400 Neut % (Auto) 50.6 Lymph % (Auto) 39.4 Pacific % (Auto) 8.4 Eos % (Auto) 0.8 Baso % (Auto) 0.4 Absolute Neuts (auto) 3.7 Absolute Lymphs (auto) 2.91 Nucleated RBC % 0 Sodium 144 Potassium 4.6 Chloride 115 H Carbon Dioxide 20.0 L Anion Gap 9 BUN 14 Creatinine 1.32 H Est GFR (MDRD) Af Amer 49 L Est GFR (MDRD) Non-Af 41 L BUN/Creatinine Ratio 10.6 Glucose 104 Calcium 9.5 Troponin I High Sens 12 Radiography Diagnostic Testing: Clinical Impression(s) from Imaging Studies Chest X-Ray 01/27/24 12:45 IMPRESSION: Focal right upper lobe opacity possible pneumonia, mass, or artifact from superimposition of chest wall structures. Recommend follow-up or CT. Electronically Signed: Nathaly Pino MD at 13:00 EST Reading Location ID and State: [facility] / [place] Tel , Service support , Treatment and Re-Evaluation :: I have personally performed a face to face assessment of the patient and have reviewed the LEXX Note. I performed a substantive portion of the visit including all aspects of the following. My le findings include: History: Patient presents with shortness of breath that began this morning. Patient states she also felt like her heart was racing. Patient denies any chest pain. Patient denies any nausea or vomiting. Patient denies any diaphoresis. Patient has a history of chronic atrial fibrillation. Exam: Vital signs are stable except for tachycardia of 106. Patient is afebrile. Patient is in no acute distress. Oral mucosa is pink and moist. Neck is supple. Trachea is midline. There is no JVD. Heart was irregularly irregular. Lungs are clear and equal bilaterally. Abdomen is soft. Bowel sounds are normal. There is no tenderness. Cranial nerves II through XII are intact. There are no focal motor or sensory deficits noted. Medical Decision Making: Differential diagnosis includes cardiac dysrhythmia, cardiac ischemia, congestive heart failure, and electrolyte abnormality. EKG will be obtained to assess for cardiac dysrhythmia and cardiac ischemia. Chest x-ray will be obtained to assess for congestive heart failure and pneumonia. CBC will be obtained to assess for leukocytosis and anemia. Basic metabolic profile will be obtained to assess for electrolyte abnormality and renal function. High-sensitivity troponin will be obtained to assess for cardiac ischemia. EKG was obtained. On my independent interpretation, it shows atrial fibrillation with a rate of 121. There are nonspecific ST-T wave changes. PA and lateral chest x-ray was obtained. There are 2 views. On my independent interpretation, lung alvarado show a right upper lobe density. This could be pneumonia, mass, or artifact. There is normal cardiac silhouette. Bony thorax is normal. There is no acute process noted. Radiologist also interpreted the x-ray and agrees. CBC will be obtained to assess for leukocytosis and anemia. Basic metabolic profile will be obtained to assess for electrolyte abnormality and renal function. High-sensitivity troponin will be obtained to assess for cardiac ischemia. Patient was given a dose of metoprolol. Patient's heart rate increased into the 120s after this. Patient was given a dose of Cardizem. Patient's heart rate improved to 87 after this. Patient feels better and wants to go home. Patient will be discharged home in stable condition. Patient was instructed to follow-up with her primary care physician in 5 to 7 days. Patient and family understood and were agreeable with the plan. All questions were answered. Discharge Plan Triage Chief Complaint: Shortness of Breath ED Midlevel Provider: Edie Lezama ED Provider: Enio Adam Dx/Rx/DC Orders Clinical Impression: Dyspnea, Atrial fibrillation with RVR Instructions: AFib Dc Prescriptions: No Action levothyroxine 50 mcg tablet 50 mcg PO DAILY Fluad Quad (65y up)(PF) 60 mcg (15 mcg x 4)/0.5 mL syringe 60 mcg IM ONCE Qty: 0.5 0RF aspirin 81 mg tablet,chewable 81 mg PO BID amlodipine 2.5 mg tablet 2.5 mg PO DAILY Qty: 90 1RF atenolol 50 mg tablet 50 mg PO BID 90 Days Qty: 180 1RF furosemide [Lasix] 40 mg tablet 40 mg PO .3 times a week Qty: 36 1RF lisinopril 20 mg tablet 20 mg PO BID Qty: 180 1RF Primary Care Provider: Zeke Moses Referrals: Zeke Moses MD [Primary Care Provider] - Activity Restrictions/Additional Instructions: Please follow-up with your solar applications development engineer for these episodes of shortness of breath. If symptoms worsen return to the ER. Your chest x-ray also showed an abnormality in the right upper lung. Follow-up with your PCP to have repeat imaging in 2 to 4 weeks. Disposition Disposition: Home, Self Care Discharge Date/Time: 01/27/24 17:26
--- NOTE | 2024-01-27 12:45 | RAD_ITS ---
HISTORY: dyspnea. TECHNIQUE: XR Chest 2 Views. COMPARISON: 06/15/2018. FINDINGS: CARDIOMEDIASTINAL BORDERS: Cardiac silhouette again upper limits of normal in size. Mediastinal contour also unchanged with calcification of the aortic knob. LUNGS: Focal round opacity overlying the right upper lobe superimposed on the clavicle and anterior first rib Chronic linear scarring in the left midlung. PLEURA: No pleural effusion or pneumothorax seen. OSSEOUS STRUCTURES: Degenerative change. Age-indeterminate L1 compression fracture. RAD/Chest PA and Lateral IMPRESSION: Focal right upper lobe opacity possible pneumonia, mass, or artifact from superimposition of chest wall structures. Recommend follow-up or CT. Electronically Signed: Nathaly Pino MD at 13:00 EST ,
[2024-01-27 13:02] LABS: Troponin-I HS 12 pg/mL (3.0-54.0)
[2024-01-27] MEDS: Metoprolol Tartrate 5 MG/5 ML Vial IV ×2 (14:32→15:34)
--- NOTE | 2024-01-27 16:25 | ED.RN ---
Delay in giving Cardizem due to having 2 doses of Lopressor. RN watching vitals to prevent hypotension.
[2024-01-27] MEDS: dilTIAZem 25 MG/5 ML Vial 10 MG IV BOLUS (16:46)
== END 2024-01-27 17:26 | disposition home or self-care (01) ==
PROVIDERS: Physician Assistant; Emergency Provider Emergency Medicine; PCP Internal Medicine; Visit Provider Emergency Medicine
DX: R06.00 Dyspnea, unspecified (principal); I48.0 Paroxysmal atrial fibrillation; N18.9 Chronic kidney disease, unspecified; I12.9 Hypertensive chronic kidney disease with stage 1 through stage 4 chronic kidney disease, or unspecified chronic kidney disease; E78.5 Hyperlipidemia, unspecified; Z79.899 Other long term (current) drug therapy; Z79.01 Long term (current) use of anticoagulants; E03.9 Hypothyroidism, unspecified; Z79.82 Long term (current) use of aspirin; Z90.49 Acquired absence of other specified parts of digestive tract; Z98.51 Tubal ligation status
CPT/HCPCS: 71046; 80048; 84484; 85025; 93005; 94760; 99283; A4216

== ENCOUNTER → 2024-01-28 | Outpatient (CLI) | payer MEDICARE, SELFPAY | END | disposition home or self-care (01) | LOC: LAB 13:37 | PROVIDERS: PCP Internal Medicine; Referring Provider Nurse Practitioner Gerontology; Visit Provider Nurse Practitioner Gerontology | DX: R06.00 Dyspnea, unspecified (principal) | CPT/HCPCS: 36415; 83880 ==

== ENCOUNTER → 2024-02-04 | Outpatient (CLI) | payer MEDICARE, SELFPAY ==
[2024-02-04 13:27] LABS: Anion Gap 5 (5-15); BUN 25 mg/dL (7-18); BUN/Creat Ratio 14.4 RATIO (10-20); Calcium,Total 9.4 mg/dL (8.5-10.1); Chloride 110 mmol/L (98-107); Creatinine, Serum 1.74 mg/dL (0.55-1.02); EST Glomerular Filtration Rate 30 mL/min (>60); Est Glom Filt Rate - Afr Amer 36 mL/min (>60); Glucose 93 mg/dL (74-106); Potassium 4.1 mmol/L (3.5-5.1); Sodium Level 142 mmol/L (136-145)
--- OUTSIDE RECORDS SUMMARY | 2024-02-04 15:35 | XMS RPT_ITS | CCD ---
Author Name Unknown Address [address] [place] [address] Organization [facility] Care Team Providers Care Laborer Pipelines Name Role Phone KELLY BAIN (JUSTIN) Unavailable Unavailable Results Test Name Value Interpretation Reference Range Facil ity Encounters Encounter Date Encounter Type Care Provider Facility Start: 07-21-2017 End: 07-21-2017 Ambulatory KELLY (JUSTIN) [facility] Summary Purpose Family History No Family History Records Found Advance Directives No Advanced Directives Records Found Additional Source Comments INFORMATION SOURCE (unrecogn ized section and content) FOR RECORDS PERTAINING TO PATIENTS WHO ARE OR HAVE BEEN ENROLLED IN A CHEMICAL DEPENDENCY/SUBSTANCEABUSE PROGRAM, SOME INFORMATION MAY BE OMITTED. This clinical summary was aggregated from multiple sources. Caution should be exercised in using it in the provision of clinical care. This summary normalizes information from multiple sources, and as a consequence, information in this document may materially change the coding, format and clinical context of patient data. In addition, data may be omitted in some cases. CLINICAL DECISIONS SHOULD BE BASED ON THE PRIMARY CLINICAL RECORDS. [facility] [employer] [facility] provides no warranty or guarantee of the accuracy or completeness of information in this document.
== END | disposition home or self-care (01) ==
LOC: LAB 11:58
PROVIDERS: PCP Internal Medicine; Referring Provider Nurse Practitioner Gerontology; Visit Provider Nurse Practitioner Gerontology
DX: R06.00 Dyspnea, unspecified (principal)
CPT/HCPCS: 36415; 80048

== ENCOUNTER 2024-02-06 11:52 | Observation (INO) | payer MEDICARE, SELFPAY ==
[2024-02-06] VITALS (8 sets, daily range): BP systolic 97–112; BP diastolic 54–84; PULSE 65–121; RESP 14–22; TEMP 36.3–36.6; O2SAT 95–100; BMI 31.1
--- NOTE | 2024-02-06 12:15 | RAD_ITS ---
EXAM: XR RIGHT FEMUR, 2 VIEWS CLINICAL INDICATION: pain TECHNIQUE: Frontal and lateral views of the right femur. COMPARISON: No relevant prior studies available. FINDINGS: BONES/JOINTS: No acute abnormality. SOFT TISSUES: Normal. No soft tissue swelling or gas. No radiopaque foreign body. RAD/Femur Min 2 Views IMPRESSION: Intact right femur. Electronically Signed: Bro Darden MD at 13:27 EDT ,
--- NOTE | 2024-02-06 12:15 | RAD_ITS ---
EXAM: XR RIGHT TIBIA AND FIBULA, 2 VIEWS CLINICAL INDICATION: pain TECHNIQUE: Frontal and lateral views of the right tibia and fibula. COMPARISON: No relevant prior studies available. FINDINGS: BONES/JOINTS: No acute abnormality. SOFT TISSUES: Normal. No soft tissue swelling or gas. No radiopaque foreign body. RAD/Tibia & Fibula 2 Views IMPRESSION: Intact right tibia and fibula. Electronically Signed: Bro Darden MD at 13:26 EDT ,
--- NOTE | 2024-02-06 12:17 | EDS_ITS ---
HPI <FERN Ewing - Last Filed: 02/06/24 15:44> History of Present Illness Chief Complaint: Lower Extremity Injury Narrative Narrative: 83-year-old female was opening her refrigerator and states both legs gave out on her and she fell injuring her right lower leg. No head injury or LOC. She had her cell phone and called her grandchildren over to come help her. She scooted herself to the door and let them in. They were there within 30 minutes and were able to stand her up and sit her in a chair. Her grandson assisted her to the car. She was able to take few steps with assistance. No weakness or paresthesias. [facility] <FERN Ewing - Last Filed: 02/06/24 15:44> [facility] Medical History Atrial fibrillation, controlled Atrial premature depolarization Cardiac dysrhythmia CKD (chronic kidney disease) Contraction, premature ventricular Difficulty swallowing Ectopic atrial tachycardia Ectopic cardiac beats Essential hypertension Flu vaccine need History of ovarian cyst Hyperlipemia Hypertension Hypothyroidism Left foot pain Mitral valve disorder Nonrheumatic mitral (valve) insufficiency Osteoarthritis Palpitations Paroxysmal atrial fibrillation Sinus bradycardia Syncope and collapse Ventricular premature depolarization Vertigo Home Medications levothyroxine 50 mcg tablet 50 mcg PO DAILY 03/26/22 [History Last Taken 02/05/24] aspirin 81 mg chewable tablet 81 mg PO BID 09/24/23 [History Last Taken 02/06/24] atenolol 50 mg tablet 50 mg PO BID 3 months #180 tabs 12/21/23 [Rx Last Taken 02/06/24] lisinopril 20 mg tablet 20 mg PO BID #180 tabs 12/21/23 [Rx Last Taken 02/06/24] amlodipine 2.5 mg tablet 2.5 mg PO BID 02/06/24 [History Last Taken 02/06/24] furosemide 40 mg tablet (Lasix) 40 mg PO DAILY 02/06/24 [History Last Taken 02/06/24] Allergy/AdvReac Type Severity Reaction Status Date / Time Penicillins Allergy Anaphylaxis Verified 02/06/24 11:53 codeine AdvReac Abd Verified 02/06/24 11:53 cramps/diarrhea Family History Father Heart disease Myocardial infarction, Onset Age: 59 Black lung disease Brother Cancer Sister Cancer Breast Brother Bright's disease Brother Multiple sclerosis Surgical History History of appendectomy History of cholecystectomy History of esophageal surgery History of tubal ligation Social History household members: none Smoking Status: Never smoker alcohol intake: never substance use type: does not use caffeine: Yes Type: coffee Number of servings: 2 what type of physical activity do you participate in: walking frequency: 3-4 times per week ROS <FERN Ewing - Last Filed: 02/06/24 15:44> ROS ED ROS Narrative Constitutional: Negative for fever, chills, malaise. CVS: Negative for chest pain, syncope. Respiratory: Positive for dyspnea on exertion. GI: Negative for abdominal pain, nausea, vomiting. EXAM <FERN Ewing - Last Filed: 02/06/24 15:44> Physical Exam Narrative Exam Narrative: CONST: Patient sitting in no acute distress. EYES: Normal inspection. NECK: Normal inspection. RESP: No respiratory distress, CTAB. CVS: Tachycardic irregularly irregular rhythm, no murmur, no gallop. ABD: Soft and nontender, no guarding or rebound. SKIN: Color normal, no rash, warm, dry, intact. EXTREMITIES: Normal appearance, no bony tenderness of upper extremities, full ROM, 2+ radial pulses. Normal appearance of lower extremities, tender over proximal fibula without deformity or crepitus. No tenderness of the ankle. Full ROM, no hip pain with logroll, 2+ DP pulses. NEURO: Alert and answering questions appropriately. PSYCH: Normal affect. Const Vital Signs: 02/06/24 11:54 02/06/24 11:54 02/06/24 13:37 Temperature 97.3 F L Temperature Source Temporal Pulse Rate 110 H 112 H 121 H Respiratory Rate 18 19 H Respiratory Effort Respiratory Pattern Blood Pressure 112/84 H 107/84 H Blood Pressure Mean 93 91 Pulse Ox 95 99 Oxygen Delivery Method Room Air Room Air 02/06/24 13:51 02/06/24 13:57 02/06/24 14:13 Temperature Temperature Source Pulse Rate 77 74 Respiratory Rate 22 H 19 H Respiratory Effort Normal Non-Labored Respiratory Pattern Normal Blood Pressure 97/72 99/54 L Blood Pressure Mean 80 69 Pulse Ox 97 99 Oxygen Delivery Method Room Air Room Air 02/06/24 15:07 02/06/24 15:26 Temperature 97.8 F Temperature Source Pulse Rate 80 65 Respiratory Rate 20 H 14 Respiratory Effort Respiratory Pattern Blood Pressure 111/67 109/74 Blood Pressure Mean 81 85 Pulse Ox 99 100 Oxygen Delivery Method Room Air <Dr. Dina Wang DO - Last Filed: 02/06/24 15:10> Physical Exam Const Vital Signs: 02/06/24 11:54 02/06/24 11:54 02/06/24 13:37 Temperature 97.3 F L Temperature Source Temporal Pulse Rate 110 H 112 H 121 H Respiratory Rate 18 19 H Respiratory Effort Respiratory Pattern Blood Pressure 112/84 H 107/84 H Blood Pressure Mean 93 91 Pulse Ox 95 99 Oxygen Delivery Method Room Air Room Air 02/06/24 13:51 02/06/24 13:57 02/06/24 14:13 Temperature Temperature Source Pulse Rate 77 74 Respiratory Rate 22 H 19 H Respiratory Effort Normal Non-Labored Respiratory Pattern Normal Blood Pressure 97/72 99/54 L Blood Pressure Mean 80 69 Pulse Ox 97 99 Oxygen Delivery Method Room Air Room Air 02/06/24 15:07 02/06/24 15:26 Temperature 97.8 F Temperature Source Pulse Rate 80 65 Respiratory Rate 20 H 14 Respiratory Effort Respiratory Pattern Blood Pressure 111/67 109/74 Blood Pressure Mean 81 85 Pulse Ox 99 100 Oxygen Delivery Method Room Air [facility] <FERN Ewing - Last Filed: 02/06/24 15:44> [facility] Narrative Medical decision making narrative: History gathered from: Patient and daughter Patient injured her right lower leg. She is tender over the proximal fibula. Neurovascularly intact. I ordered x-rays which were read as negative by the radiologist; however, on my review of the lateral tib-fib x-ray I think there is a nondisplaced fracture of the proximal fibula. I discussed with Dr. Bonds who recommended obtaining ankle x-rays. He states a proximal fibula fracture does not need splinted or braced and its weightbearing as tolerated. While in the ER patient complained of a bout of dyspnea. She has a history of A-fib and has had recent exertional dyspnea. 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 She is on blood pressure medications. She no longer takes a blood thinner because she states it was too expensive. 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 Blood pressure 112/84. She was given IV Cardizem 20 mg and heart rate improved. Blood pressures are soft around 100 systolic. Labs show ROMAIN with BUN of 32, creatinine 2.15 (previously 1.74). This is likely from increasing her diuretic from 3 times a week to daily. BNP is 251. Troponin is normal at 15. CXR shows no acute process. Patient will need admitted for optimization of her cardiac meds and A-fib. Case was discussed with the hospitalist for admission. Consults: Orthopedics, [facility] I have personally performed a face to face assessment of the patient and have reviewed the LEXX Note. I performed a substantive portion of the visit including all aspects of the following. My le findings include: History is [patient presents to the emergency department after a fall while at work today. Patient thinks maybe she just lost her balance while standing at the sink and she tried to grab the refrigerator door so she would go down hard and injured her right lower leg. Patient has history of A-fib and was in the emergency department 4 days ago for feeling short of breath. She was then seen by nurse practitioner for her ammonia refrigeration worker the following day and was told to take her water pill daily. Half hour after arriving the emergency department she started complaining of feeling short of breath again. She denies recent travel or surgery. She denies chest pain.] Exam is [HEENT-PERRLA, EOMI. Cranial nerves II through XII grossly intact. TMs clear. Mucous membranes moist. No adenopathy. Cardiovascular-irregularly irregular and tachycardic. No murmurs auscultated. Lungs-clear to auscultation, chest wall stable without crepitus or subcu emphysema Abdomen-normoactive bowel sounds, soft, nontender, no rebound or rigidity, no peritoneal signs. Extremities-intact ?4, normal range of motion, normal pulses. Right leg-patient with tenderness over the proximal fibula. There is no ecchymosis or bruising. Neurovascular intact distally.] Medical Decison Making [patient presents after a fall with right leg injury. X- rays of the right tib-fib and femur obtained. I noted she does have a relatively nondisplaced proximal fibula fracture. Given her dyspnea will get an EKG and basic labs. Will treat her A-fib as she is tachycardic with heart rates in the 120s currently with Cardizem to slow her down.] Lab workup significant for an elevated BUN at 32 and a creatinine 2.15 which is significant elevation compared from 11 days ago when on January 26 her creatinine was 1.3. Patient also has been complaining of exertional dyspnea and uncontrolled A-fib. Her troponin was normal at 15 and her BNP was elevated to 51.6. Chest x-ray was unremarkable. We will discuss with orthopedics regarding her suspected proximal fibula fracture. Will also discuss with hospitalist to evaluate patient for admission Other additions or changes: [None] Lab Data Labs: Laboratory Results - last 24 hr 02/06/24 13:45 WBC 9.6 RBC 4.80 Hgb 14.3 Hct 45.2 MCV 94.2 MCH 29.8 MCHC 31.6 L RDW Std Deviation 47.1 H RDW Coeff of Cata 13.7 Plt Count 327 MPV 10.6 Immature Gran % (Auto) 0.500 Neut % (Auto) 65.1 Lymph % (Auto) 27.5 [place] % (Auto) 6.0 Eos % (Auto) 0.5 Baso % (Auto) 0.4 Absolute Neuts (auto) 6.3 Absolute Lymphs (auto) 2.65 Nucleated RBC % 0 Sodium 141 Potassium 4.2 Chloride 108 H Carbon Dioxide 25.0 Anion Gap 8 BUN 32 H Creatinine 2.15 H Est GFR (MDRD) Af Amer 28 L Est GFR (MDRD) Non-Af 23 L BUN/Creatinine Ratio 14.9 Glucose 106 Calcium 9.9 Troponin I High Sens 15 B-Natriuretic Peptide 251.6 H Radiography Diagnostic Testing: Clinical Impression(s) from Imaging Studies Femur X-Ray 02/06/24 12:15 IMPRESSION: Intact right femur. Electronically Signed: Bro Darden MD at 13:27 EDT , Tibia/Fibula X-Ray 02/06/24 12:15 IMPRESSION: Intact right tibia and fibula. Electronically Signed: Bro Darden MD at 13:26 EDT , ADDENDUM: 02/06/24 1458 IMPRESSION: undefined Chest X-Ray 02/06/24 13:32 IMPRESSION: No acute cardiopulmonary abnormality. Electronically Signed: Bro Darden MD at 14:54 EDT , <Dr. Dina Wang, DO - Last Filed: 02/06/24 15:10> [facility] MDM Narrative Medical decision making narrative: I have personally performed a face to face assessment of the patient and have reviewed the LEXX Note. I performed a substantive portion of the visit including all aspects of the following. My le findings include: History is [patient presents to the emergency department after a fall while at work today. Patient thinks maybe she just lost her balance while standing at the sink and she tried to grab the refrigerator door so she would go down hard and injured her right lower leg. Patient has history of A-fib and was in the emergency department 4 days ago for feeling short of breath. She was then seen by nurse practitioner for her ammonia refrigeration worker the following day and was told to take her water pill daily. Half hour after arriving the emergency department she started complaining of feeling short of breath again. She denies recent travel or surgery. She denies chest pain.] Exam is [HEENT-PERRLA, EOMI. Cranial nerves II through XII grossly intact. TMs clear. Mucous membranes moist. No adenopathy. Cardiovascular-irregularly irregular and tachycardic. No murmurs auscultated. Lungs-clear to auscultation, chest wall stable without crepitus or subcu emphysema Abdomen-normoactive bowel sounds, soft, nontender, no rebound or rigidity, no peritoneal signs. Extremities-intact ?4, normal range of motion, normal pulses. Right leg-patient with tenderness over the proximal fibula. There is no ecchymosis or bruising. Neurovascular intact distally.] Medical Decison Making [patient presents after a fall with right leg injury. X- rays of the right tib-fib and femur obtained. I noted she does have a relatively nondisplaced proximal fibula fracture. Given her dyspnea will get an EKG and basic labs. Will treat her A-fib as she is tachycardic with heart rates in the 120s currently with Cardizem to slow her down.] Lab workup significant for an elevated BUN at 32 and a creatinine 2.15 which is significant elevation compared from 11 days ago when on January 26 her creatinine was 1.3. Patient also has been complaining of exertional dyspnea and uncontrolled A-fib. Her troponin was normal at 15 and her BNP was elevated to 51.6. Chest x-ray was unremarkable. We will discuss with orthopedics regarding her suspected proximal fibula fracture. Will also discuss with hospitalist to evaluate patient for admission Other additions or changes: [None] Lab Data Attestation: I reviewed the patient's lab results. Labs: Laboratory Results - last 24 hr 02/06/24 13:45 WBC 9.6 RBC 4.80 Hgb 14.3 Hct 45.2 MCV 94.2 MCH 29.8 MCHC 31.6 L RDW Std Deviation 47.1 H RDW Coeff of Cata 13.7 Plt Count 327 MPV 10.6 Immature Gran % (Auto) 0.500 Neut % (Auto) 65.1 Lymph % (Auto) 27.5 [place] % (Auto) 6.0 Eos % (Auto) 0.5 Baso % (Auto) 0.4 Absolute Neuts (auto) 6.3 Absolute Lymphs (auto) 2.65 Nucleated RBC % 0 Sodium 141 Potassium 4.2 Chloride 108 H Carbon Dioxide 25.0 Anion Gap 8 BUN 32 H Creatinine 2.15 H Est GFR (MDRD) Af Amer 28 L Est GFR (MDRD) Non-Af 23 L BUN/Creatinine Ratio 14.9 Glucose 106 Calcium 9.9 Troponin I High Sens 15 B-Natriuretic Peptide 251.6 H Radiography Diagnostic Testing: Clinical Impression(s) from Imaging Studies Femur X-Ray 02/06/24 12:15 IMPRESSION: Intact right femur. Electronically Signed: Bro Darden MD at 13:27 EDT , Tibia/Fibula X-Ray 02/06/24 12:15 IMPRESSION: Intact right tibia and fibula. Electronically Signed: Bro Darden MD at 13:26 EDT , ADDENDUM: 02/06/24 1458 IMPRESSION: undefined Chest X-Ray 02/06/24 13:32 IMPRESSION: No acute cardiopulmonary abnormality. Electronically Signed: Bro Darden MD at 14:54 EDT , 1 view chest x-ray obtained interpreted by myself as no evidence of pneumothorax or infiltrate or acute disease process. I feel she has some atelectasis in the left lung base. Radiology felt there is no acute process. 2 view x-rays of right femur obtained interpreted by myself as no evidence of fracture or dislocation. Radiology in agreement. 2 view x-rays of right tib-fib obtained interpreted by myself as nondisplaced proximal fibula fracture. Radiology felt the x-rays were normal but will have them reevaluate. As on the lateral view it appears there is a nondisplaced fracture with step-off. EKG Initial EKG: Attestation: I personally reviewed and interpreted this EKG as follows: Comments: Atrial fibrillation with rate in the 70s with no acute ST segment changes. EKG performed after patient received Cardizem. Initial heart rate on monitor anywhere from the 1 teens to the 130s. Discharge Plan Dx/Rx/DC Orders Clinical Impression: ROMAIN (acute kidney injury), Exertional dyspnea, Fracture of right fibula, Chronic atrial fibrillation with rapid ventricular response Disposition Disposition: Acute Care Hospital [facility] Discharge Date/Time: 02/06/24 15:40
--- NOTE | 2024-02-06 13:32 | RAD_ITS ---
EXAM: XR CHEST, 1 VIEW CLINICAL INDICATION: dyspnea TECHNIQUE: Frontal view of the chest. COMPARISON: XR Chest dated 01/27/2024 FINDINGS: LUNGS AND PLEURAL SPACES: Previously noted right upper lobe opacity has cleared. Linear scarring noted within the lingula. HEART: Normal heart size. MEDIASTINUM: No mediastinal or hilar mass. BONES/JOINTS: No acute abnormality. RAD/Chest 1 View (Portable) IMPRESSION: No acute cardiopulmonary abnormality. Electronically Signed: Bro Darden MD at 14:54 EDT ,
--- NOTE | 2024-02-06 13:32 | EKG12_ITS ---
Test Reason : GENERAL Blood Pressure : / mmHG Vent. Rate : 077 BPM Atrial Rate : 000 BPM P-R Int : 000 ms QRS Dur : 092 ms QT Int : 398 ms P-R-T Axes : 000 037 032 degrees QTc Int : 450 ms Atrial fibrillation Abnormal ECG Confirmed by JUSTIN MORALES, MOHINI ([id number]), subeditor HARVINDER SEQUEIRA ([id number]) on 02/08/2024 10:47:34 AM Referred By: Confirmed By:MOHINI ANDERSON MD
[2024-02-06] MEDS: dilTIAZem 25 MG/5 ML Vial 20 MG IV BOLUS (13:46)
[2024-02-06 13:50] LABS: Absolute Lymphocyte Count 2.65 X10^3/uL (0.83-4.51); Absolute Neutrophil Count 6.3 X10^3/uL (2.0-7.7); Basophil# 0.04 X10^3/uL; Basophil% 0.4 % (0-1); Eosinophil# 0.05 X10^3/uL; Eosinophils% 0.5 % (0-5); Hematocrit 45.2 % (37-47); Hemoglobin 14.3 g/dL (12.0-15.0); Lymphocyte # 2.65 X10^3/ul (0.83-4.51); Lymphocyte % 27.5 % (19-41); Mean Corp Hgb Conc 31.6 g/dL (32-36); Mean Corpuscular Hgb 29.8 pg (27.0-32.0); Mean Corpuscular Volume 94.2 fL (81-99); Mean Platelet Vol. 10.6 fl (6.2-12.0); Monocyte# 0.58 X10^3/uL; NRBC Flagged by Analyzer 0 % (0-5); Neutrophil # 6.25 X10^3/uL (2.7-7.7); Neutrophil % 65.1 % (47-70); Platelet Count 327 K/mm3 (150-450); RBC Distribution Width CV 13.7 % (11.6-14.6); RBC Distribution Width SD 47.1 fl (35.1-43.9); White Blood Count 9.6 K/mm3 (4.4-11.0)
[2024-02-06 14:09] LABS: Anion Gap 8 (5-15); BNP,B-Type NATRIURETIC PEPTIDE 251.6 pg/mL (0-100); BUN 32 mg/dL (7-18); BUN/Creat Ratio 14.9 RATIO (10-20); Calcium,Total 9.9 mg/dL (8.5-10.1); Chloride 108 mmol/L (98-107); Creatinine, Serum 2.15 mg/dL (0.55-1.02); EST Glomerular Filtration Rate 23 mL/min (>60); Est Glom Filt Rate - Afr Amer 28 mL/min (>60); Glucose 106 mg/dL (74-106); Potassium 4.2 mmol/L (3.5-5.1); Sodium Level 141 mmol/L (136-145); Troponin-I HS 15 pg/mL (3.0-54.0)
[2024-02-06] MEDS: 0.9% Normal Saline (1000mL) 1,000 ML 150 ML IV ×2 (14:14→20:14)
--- NOTE | 2024-02-06 15:05 | PCM.HP.STD ---
HPI - General General Date of Admission: 02/06/24 Date of Service: 02/06/24 Chief Complaint: Paroxysmal afib with ROMAIN HPI Narrative OTF CONDE, is a 83 F who presents to the ED following a fall at home, she feels she tripped and immediately called her family to help her out. No loss of consciousness no dizziness associated. At the time of presentation in the ED she complained of shortness of breath and palpitations, was found to have tachycardia and was given a dose of Cardizem to control her heart rate. Since then her symptoms have subsided. Of note she recently presented to the emergency department on 01/27/2024 with shortness of breath, was found to have A-fib with RVR and was given IV Lopressor and was discharged home to follow-up with cardiology. She follows up with cardiology as an outpatient and recently her Lasix was increased to daily from every alternate day and she was found to have ROMAIN at the time of presentation to the ED this time. For anticoagulation she was previously on Eliquis which was discontinued due to financial reasons, on aspirin 81 mg twice daily at present [facility] Medical History Atrial fibrillation, controlled Atrial premature depolarization Cardiac dysrhythmia CKD (chronic kidney disease) Contraction, premature ventricular Difficulty swallowing Ectopic atrial tachycardia Ectopic cardiac beats Essential hypertension Flu vaccine need History of ovarian cyst Hyperlipemia Hypertension Hypothyroidism Left foot pain Mitral valve disorder Nonrheumatic mitral (valve) insufficiency Osteoarthritis Palpitations Paroxysmal atrial fibrillation Sinus bradycardia Syncope and collapse Ventricular premature depolarization Vertigo Home Medications levothyroxine 50 mcg tablet 50 mcg PO DAILY 03/26/22 [History Last Taken 02/05/24] aspirin 81 mg chewable tablet 81 mg PO BID 09/24/23 [History Last Taken 02/06/24] atenolol 50 mg tablet 50 mg PO BID 3 months #180 tabs 12/21/23 [Rx Last Taken 02/06/24] lisinopril 20 mg tablet 20 mg PO BID #180 tabs 12/21/23 [Rx Last Taken 02/06/24] amlodipine 2.5 mg tablet 2.5 mg PO BID 02/06/24 [History Last Taken 02/06/24] furosemide 40 mg tablet (Lasix) 40 mg PO DAILY 02/06/24 [History Last Taken 02/06/24] Allergy/AdvReac Type Severity Reaction Status Date / Time Penicillins Allergy Anaphylaxis Verified 02/06/24 11:53 codeine AdvReac Abd Verified 02/06/24 11:53 cramps/diarrhea Family History Father Heart disease Myocardial infarction, Onset Age: 59 Black lung disease Brother Cancer Sister Cancer Breast Brother Bright's disease Brother Multiple sclerosis Surgical History History of appendectomy History of cholecystectomy History of esophageal surgery History of tubal ligation Social History household members: none Smoking Status: Never smoker alcohol intake: never substance use type: does not use caffeine: Yes Type: coffee Number of servings: 2 what type of physical activity do you participate in: walking frequency: 3-4 times per week ROS Review of Systems ROS Unobtainable: Denies due to encephalopathy, due to endotracheal tube, due to mental condition, due to mental status or other Constitutional Constitutional: Denies anorexia, change in weight, chills, fatigue, fever(s), malaise, night sweats, weakness or other Eyes Eyes: Denies blurry vision, change in eye color, change in vision, discharge from eye(s), double vision, erythema, eye pain, loss of vision or other ENT HEENT: Denies abnormal hearing, dysphagia, ear pain, epistaxis, headache(s), hearing loss, nasal congestion, nasal discharge, post nasal drip, sinus pressure, sore throat or other Cardiovascular Cardiovascular: Reports dyspnea on exertion, palpitations and rapid heart rate; Denies edema, lightheadedness, paroxysmal nocturnal dyspnea or syncope Respiratory/Chest Respiratory/Chest: Denies cough, dyspnea, excessive phlegm production, hemoptysis, productive cough, shortness of breath at rest, shortness of breath with exertion, wheezing or other Gastrointestinal Gastrointestinal: Denies abdominal pain, coffee ground emesis, constipation, diarrhea, dyspepsia, hematemesis, hematochezia, loose stools, melena, nausea, vomiting or other Genitourinary Genitourinary: Denies burning urination, difficulty urinating, dysuria, hematuria, nocturia, urinary frequency, urinary hesitancy, urinary incontinence, urinary urgency or other Musculoskeletal Musculoskeletal: Denies arthralgias, back pain, joint pain, joint stiffness, joint swelling, myalgias, neck pain or other Neurologic Neurologic: Denies abnormal gait, abnormal speech, confusion, disequilibrium, dizziness, focal weakness, headache(s), numbness, paresthesias, seizure-like activity, seizures, syncope, tingling, tremor(s) or other Psychiatric Psychiatric: Denies anxiety, depression, homicidal ideation, suicidal ideation or other Endocrine Endocrinology: Denies change in body appearance, cold intolerance, excessive sweating, heat intolerance, polydipsia, polyuria or other Vital Signs Vital Signs Vital Signs: 02/06/24 11:54 02/06/24 11:54 02/06/24 13:37 Temperature 97.3 F L Temperature Source Temporal Pulse Rate 110 H 112 H 121 H Respiratory Rate 18 19 H Respiratory Effort Respiratory Pattern Blood Pressure 112/84 H 107/84 H Blood Pressure Mean 93 91 Pulse Ox 95 99 Oxygen Delivery Method Room Air Room Air 02/06/24 13:51 02/06/24 13:57 02/06/24 14:13 Temperature Temperature Source Pulse Rate 77 74 Respiratory Rate 22 H 19 H Respiratory Effort Normal Non-Labored Respiratory Pattern Normal Blood Pressure 97/72 99/54 L Blood Pressure Mean 80 69 Pulse Ox 97 99 Oxygen Delivery Method Room Air Room Air Physical Exam Const alert, oriented x3 and no apparent distress HEENT normocephalic and head/scalp atraumatic Eyes PERRL and EOMs intact bilaterally Neck no lymphadenopathy Resp normal respiratory effort and no retractions Cardio Cardio Narrative: Irregularly irregular heart rate, no murmurs heard GI normal to inspection, nondistended, normoactive bowel sounds Extremity Extremity Narrative: Right leg is exquisitely tender, no pedal edema Neuro oriented x3 and CN's II-XII intact bilaterally Results Medical Records Data Attestation: I reviewed the patient's medical records Medical records narrative: Last echocardiogram was in 2018 Lab / Micro Data Attestation: I reviewed the patient's lab results. Lab results narrative: Elevated BUN, creatinine, BNP 251.6 [previously 354.0], hemoglobin 14.3. 02/06/24 13:45 02/06/24 13:45 Labs: Laboratory Results - last 24 hr 02/06/24 13:45: WBC 9.6, RBC 4.80, Hgb 14.3, Hct 45.2, MCV 94.2, MCH 29.8, MCHC 31.6 L, RDW Std Deviation 47.1 H, RDW Coeff of Cata 13.7, Plt Count 327, MPV 10.6, Immature Gran % (Auto) 0.500, Neut % (Auto) 65.1, Lymph % (Auto) 27.5, [place] % (Auto) 6.0, Eos % (Auto) 0.5, Baso % (Auto) 0.4, Absolute Neuts (auto) 6.3, Absolute Lymphs (auto) 2.65, Nucleated RBC % 0, Sodium 141, Potassium 4.2, Chloride 108 H, Carbon Dioxide 25.0, Anion Gap 8, BUN 32 H, Creatinine 2.15 H, Est GFR (MDRD) Af Amer 28 L, Est GFR (MDRD) Non-Af 23 L, BUN/Creatinine Ratio 14.9, Glucose 106, Calcium 9.9, Troponin I High Sens 15, B-Natriuretic Peptide 251.6 H Imaging Radiology Impression Femur X-Ray 02/06/24 12:15 IMPRESSION: Intact right femur. Electronically Signed: Bro Darden MD at 13:27 EDT , Tibia/Fibula X-Ray 02/06/24 12:15 IMPRESSION: Intact right tibia and fibula. Electronically Signed: Bro Darden MD at 13:26 EDT Reading Location ID and State: [facility] / [place] Tel , Service support , ADDENDUM: 02/06/24 1458 IMPRESSION: undefined Chest X-Ray 02/06/24 13:32 IMPRESSION: No acute cardiopulmonary abnormality. Electronically Signed: Bro Darden MD at 14:54 EDT Reading Location ID and State: [facility] / [place] Tel , Service support , Assessment & Plan Assessment/Plan (1) Chronic atrial fibrillation with rapid ventricular response: PLAN: Plan 83-year-old female with past medical history of A-fib with RVR on atenolol 50 mg daily, heart failure with preserved ejection fraction on furosemide 40 mg daily, hypothyroidism levothyroxine 50 mcg, hypertension on amlodipine 2.5 mg daily and lisinopril 20 mg daily is being admitted for evaluation of paroxysmal A-fib and ROMAIN on CKD. 1. A-fib: Has history of paroxysmal A-fib echocardiogram in 2018 showed 70% ejection fraction, CHADS2 DS 2 vas score is 4, she was previously on Eliquis which was discontinued and is now on aspirin 81 mg twice daily -Continue home dose atenolol 50 mg twice daily -Continue aspirin 81 mg twice daily as per cardiology -Echocardiogram -Cardiology consult inpatient 2. Nonrheumatic mitral valve insufficiency: Furosemide dose was recently increased, given the ROMAIN we will hold the dose for now -Cardiology consult 3. ROMAIN on CKD: Related to recent increase in Lasix, no orthostatic symptoms -Given her elevated BNP will only monitor without IV fluids for now -Monitor creatinine and urine output 4. Essential hypertension: Continue outpatient regimen of amlodipine 2.5 mg, atenolol 50 twice daily, lisinopril 20 twice daily, hold Lasix for now 5. Recent fall: No concerns of fracture based on the x-ray of tibia-fibula, femur -Get x-ray ankle and knee to rule out any fractures -PT OT evaluation regarding functionality and strength assessment -Tylenol for pain control 6. DVT prophylaxis: On aspirin 81 mg twice daily will hold off any further anticoagulation 7. Hypothyroidism: Continue 50 mcg daily, assess TSH tomorrow morning Charges/Coding Visit Charges Inpatient E&M: 33628 Init Hosp L2
[2024-02-06] MEDS: Acetaminophen 500 MG Tablet 1000 MG PO (15:24)
--- NOTE | 2024-02-06 16:13 | RAD_ITS ---
STUDY: X-RAY - RIGHT ANKLE REASON FOR EXAM: Female, 83 years old. Fall TECHNIQUE: 3 view(s) of the ankle. COMPARISON: None. FINDINGS: Normal visualized distal tibia and fibula. Normal medial and lateral malleoli. Normal tibiotalar articulation and ankle mortise. Normal visualized talus and calcaneus. Moderate-sized posterior calcaneal enthesophyte. The visualized subtalar, talonavicular, calcaneocuboid and tarsal articulations are normal. The soft tissue structures are unremarkable. RAD/Ankle min 3 Views IMPRESSION: Normal x-ray examination of the ankle. Electronically Signed: Jose Navarrete MD at 17:38 EDT ,
--- NOTE | 2024-02-06 16:58 | ECHOD_ITS ---
Reason For Study: AFIB Procedure This was a 2D Doppler, Color Flow transthoracic echocardiogram. Exam performed portable in ED. Left Ventricle Normal LV size. Left ventricular systolic function is normal. The estimated ejection fraction is 55 %. No regional wall motion abnormalities noted. Right Ventricle Normal RV size. Normal systolic function. Atria The left atrium is moderately enlarged. The right atrium is mildly enlarged. Mitral Valve Normal mitral valve. Mild (1+) eccentric mitral valve insufficiency. Tricuspid Valve Normal tricuspid valve. Mild (1+) tricuspid valve insufficiency. Pulmonary artery systolic pressure is 37 mmHg. Aortic Valve Trisinus/trileaflet aortic valve. Great Vessels Normal aortic root. Pericardium/Pleural No pericardial effusion. MMode/2D Measurements & Calculations LVIDd: 4.4 cm IVSd: 1.1 cm Ao root diam: 3.6 cm LVIDs: 3.7 cm LVPWd: 1.4 cm FS: 15.3 % LAV(MOD-sp4): 91.1 ml LA A4 area: 27.7 cm2 LA dimension(2D): 4.4 cm RA A4 area: 20.9 cm2 Doppler Measurements & Calculations MV E max fidelina: 71.4 cm/sec Ao V2 max: 92.5 cm/sec LV V1 max: 71.8 cm/sec Ao max P.4 mmHg LV V1 max P.1 mmHg Ao V2 mean: 65.6 cm/sec LV V1 mean P.1 mmHg Ao mean P.9 mmHg LV V1 mean: 50.1 cm/sec Ao V2 VTI: 17.1 cm LV V1 VTI: 13.7 cm AV (velocity ratio): 0.80 PA V2 max: 109.4 cm/sec TR max fidelina: 290.4 cm/sec PA V2 mean: 80.1 cm/sec TR max P.7 mmHg ECHO/Echo Complete Interpretation Summary Normal LV size. Left ventricular systolic function is normal. The estimated ejection fraction is 55 %. The left atrium is moderately enlarged. Pulmonary artery systolic pressure is 37 mmHg. Mild (1+) eccentric mitral valve insufficiency. Ordering Physician: Danni Tirado Referring Physician: Zeke Moses Performed By: Marcela Torres RCS
--- NOTE | 2024-02-06 17:00 | RAD_ITS ---
STUDY: X-RAY - RIGHT KNEE REASON FOR EXAM: Female, 83 years old. Fall TECHNIQUE: 2 view(s) of the knee. COMPARISON: None. FINDINGS: There is demineralization of the visualized distal femur. There is demineralization of the tibia and fibula. Normal proximal tibiofibular articulation. There is mild degenerative arthrosis of the medial femorotibial compartment. There is mild degenerative arthrosis of the lateral femorotibial compartment. Normal patellofemoral articulation. 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 The soft tissue structures are unremarkable. RAD/Knee 1 or 2 Views IMPRESSION: 1. No acute fracture or dislocation. 2. CPPD with mild arthrosis. Electronically Signed: Jose Navarrete MD at 17:40 EDT ,
[2024-02-06] MEDS: Aspirin 81 MG TAB.CHEW PO (19:20)
[2024-02-06] MEDS: Lisinopril 20 MG Tablet PO (21:44)
[2024-02-06] MEDS: Atenolol 50 MG Tablet PO (21:44)
[2024-02-06] MEDS: amLODIPine 2.5 MG Tablet PO (21:44)
[2024-02-07] MEDS: Acetaminophen 325 MG Tablet 650 MG PO ×3 (01:34→22:19)
[2024-02-07] MEDS: 0.9% Normal Saline (1000mL) 1,000 ML 150 ML IV (02:40)
[2024-02-07 03:38] VITALS: BP 114/80; PULSE 99; RESP 18; TEMP 36.8; O2SAT 95
[2024-02-07] MEDS: Levothyroxine 50 MCG Tablet PO (05:05)
[2024-02-07 07:24] LABS: Absolute Neutrophil Count 3.2 X10^3/uL (2.0-7.7); Basophil# 0.05 X10^3/uL; Basophil% 0.8 % (0-1); Eosinophil# 0.07 X10^3/uL; Eosinophils% 1.2 % (0-5); Hematocrit 38.8 % (37-47); Hemoglobin 12.3 g/dL (12.0-15.0); Lymphocyte % 33.6 % (19-41); Mean Corp Hgb Conc 31.7 g/dL (32-36); Mean Corpuscular Hgb 30.1 pg (27.0-32.0); Mean Corpuscular Volume 95.1 fL (81-99); Mean Platelet Vol. 10.8 fl (6.2-12.0); Monocyte# 0.64 X10^3/uL; Monocyte% 10.7 % (0-10); NRBC Flagged by Analyzer 0 % (0-5); Neutrophil # 3.19 X10^3/uL (2.7-7.7); Neutrophil % 53.5 % (47-70); Platelet Count 289 K/mm3 (150-450); RBC Distribution Width CV 13.5 % (11.6-14.6); Red Blood Count 4.08 M/mm3 (4.2-5.4)
--- NOTE | 2024-02-07 07:33 | PN.HOSP_ITS ---
Reason for Visit Reason for Visit: Diagnoses Chronic atrial fibrillation, unspecified (02/06/24) Subjective Subjective Still with right leg pain. Pt had difficultly working with therapy due to RLE pain. Objective Data Objective Data Vital Signs: Vital Signs Temp Pulse Resp BP Pulse Ox O2 Del Method 36.8 C 99 18 114/80 95 Room Air 02/07/24 03:38 02/07/24 03:38 02/07/24 03:38 02/07/24 03:38 02/07/24 03:38 02/07/24 03:38 Oxygen Delivery Method Room Air Weight: 77.3 kg Body Mass Index (BMI) 31.1 Intake & Output: Intake and Output for Last 24 Hours 02/05/24 02/06/24 02/07/24 23:59 23:59 23:59 Intake Total 900 / 900 965 / 965 Balance 900 / 900 965 / 965 Lab / Micro Data 02/07/24 06:35 02/07/24 06:35 Labs: Laboratory Results - last 24 hr 02/06/24 13:45: WBC 9.6, RBC 4.80, Hgb 14.3, Hct 45.2, MCV 94.2, MCH 29.8, MCHC 31.6 L, RDW Std Deviation 47.1 H, RDW Coeff of Cata 13.7, Plt Count 327, MPV 10.6, Immature Gran % (Auto) 0.500, Neut % (Auto) 65.1, Lymph % (Auto) 27.5, [place] % (Auto) 6.0, Eos % (Auto) 0.5, Baso % (Auto) 0.4, Absolute Neuts (auto) 6.3, Absolute Lymphs (auto) 2.65, Nucleated RBC % 0, Sodium 141, Potassium 4.2, Chloride 108 H, Carbon Dioxide 25.0, Anion Gap 8, BUN 32 H, Creatinine 2.15 H, Est GFR (MDRD) Af Amer 28 L, Est GFR (MDRD) Non-Af 23 L, BUN/Creatinine Ratio 14.9, Glucose 106, Calcium 9.9, Troponin I High Sens 15, B-Natriuretic Peptide 251.6 H 02/07/24 06:35: WBC 6.0, RBC 4.08 L, Hgb 12.3, Hct 38.8, MCV 95.1, MCH 30.1, MCHC 31.7 L, RDW Std Deviation 47.0 H, RDW Coeff of Cata 13.5, Plt Count 289, MPV 10.8, Immature Gran % (Auto) 0.200, Neut % (Auto) 53.5, Lymph % (Auto) 33.6, [place] % (Auto) 10.7 H, Eos % (Auto) 1.2, Baso % (Auto) 0.8, Absolute Neuts (auto) 3.2, Absolute Lymphs (auto) 2.00, Nucleated RBC % 0 Radiography Diagnostic Testing: Radiology Impression Femur X-Ray 02/06/24 12:15 IMPRESSION: Intact right femur. Electronically Signed: Bro Darden MD at 13:27 EDT , Tibia/Fibula X-Ray 02/06/24 12:15 IMPRESSION: Intact right tibia and fibula. Electronically Signed: Bro Darden MD at 13:26 EDT , ADDENDUM: 02/06/24 1458 IMPRESSION: undefined Chest X-Ray 02/06/24 13:32 IMPRESSION: No acute cardiopulmonary abnormality. Electronically Signed: Bro Darden MD at 14:54 EDT , Ankle X-Ray 02/06/24 16:13 IMPRESSION: Normal x-ray examination of the ankle. Electronically Signed: Jose Navarrete MD at 17:38 EDT , Knee X-Ray 02/06/24 17:00 IMPRESSION: 1. No acute fracture or dislocation. 2. CPPD with mild arthrosis. Electronically Signed: Jose Navarrete MD at 17:40 EDT Reading Location ID and State: [id number] / [employer] Tel , Service support , ADDENDUM: 02/06/24 1845 IMPRESSION: Suspect subtle nondisplaced oblique fracture of the proximal shaft of the fibula. Electronically Signed: Jose Navarrete MD at 18:38 EDT Reading Location ID and State: [id number] / [employer] Tel , Service support , Physical Exam Const alert and no apparent distress HEENT head/scalp atraumatic and moist oral mucous membranes Resp normal respiratory effort, no retractions, no use of accessory muscles and clear to auscultation bilaterally Cardio regular rate, regular rhythm, S1 normal heart sound and S2 normal heart sound GI normal to inspection, nondistended, normoactive bowel sounds, soft to palpation, non-tender and non-distended Assessment & Plan Assessment/Plan (1) Chronic atrial fibrillation with rapid ventricular response: PLAN: Plan ROMAIN on CKD: * Related to recent increase in Lasix, no orthostatic symptoms * Given her elevated BNP will only monitor without IV fluids for now * Monitor creatinine and urine output Recent fall: * No concerns of fracture based on the x-ray of tibia-fibula, femur * Get x-ray ankle and knee to rule out any fractures * PT OT evaluation regarding functionality and strength assessment Possible nondisplaced oblique fracture of the proximal shaft of the fibula. * check 25-OH d level. * consult orthopaedics for recommendations. Chronic conditions: * A-fib: Has history of paroxysmal A-fib echocardiogram in 2018 showed 70% ejection fraction, CHADS2 DS 2 vas score is 4, she was previously on Eliquis which was discontinued and is now on aspirin 81 mg twice daily. continue home dose atenolol 50 mg twice daily. Continue aspirin 81 mg twice daily as per cardiology. Echocardiogram. Cardiology consult inpatient. * Nonrheumatic mitral valve insufficiency: Furosemide dose was recently increased, given the ROMAIN we will hold the dose for now. Cardiology consult * Hypothyroidism: Continue 50 mcg daily, assess TSH tomorrow morning DVT prophylaxis: On aspirin 81 mg twice daily will hold off any further anticoagulation DW pt's son at bedside. Charges/Coding Visit Charges Inpatient E&M: 59890 Subs Hosp L2
[2024-02-07 07:55] LABS: AST(SGOT) 16 U/L (15-37); Alanine Aminotransfer ALT/SGPT 15 U/L (13-56); Albumin, Serum 2.9 g/dL (3.2-5.0); Alkaline Phosphatase 55 U/L (45-117); Anion Gap 6 (5-15); BUN 27 mg/dL (7-18); BUN/Creat Ratio 16.8 RATIO (10-20); Bilirubin, Direct 0.17 mg/dL (0.00-0.30); Calcium,Total 8.4 mg/dL (8.5-10.1); Chloride 115 mmol/L (98-107); Creatinine, Serum 1.61 mg/dL (0.55-1.02); EST Glomerular Filtration Rate 32 mL/min (>60); Est Glom Filt Rate - Afr Amer 39 mL/min (>60); Estimated Creatinine Clearance 25.04 ml/min; Glucose 104 mg/dL (74-106); Magnesium 2.2 mg/dL (1.6-2.6); Phosphorus 3.3 mg/dL (2.5-4.9); Potassium 3.5 mmol/L (3.5-5.1); Protein, Total 5.9 g/dL (6.4-8.2); Sodium Level 145 mmol/L (136-145); Thyroid Stim Hormone (TSH) 6.87 uIU/mL (0.358-3.74)
--- NOTE | 2024-02-07 08:54 | PCM.CONS.C ---
Assessment & Plan Assessment/Plan (1) Paroxysmal atrial fibrillation: PLAN: Patient appears to have paroxysmal atrial fibrillation. It now appears to be persistent. With her [id number] score of at least 3 she needs to be anticoagulated long-term. I would obtain an echocardiogram to assess her ventricular function. She can continue with the beta-carola with the atenolol 50 mg twice a day. She will also benefit from anticoagulation with Eliquis. (2) Essential hypertension: PLAN: Her blood pressure appears to be under fair control. I would recommend that we continue the beta-carola as well as the dihydropyridine calcium channel carola. The diuretic can be discontinued. (3) ROMAIN (acute kidney injury): PLAN: Will recommend discontinuation of the diuretic at this particular time and observation of her renal function. Thank you for allowing me to participate in the care of your patient. Please don't hesitate to call if any issues arise. HPI Consult Data Date of Consult: 02/07/24 HPI Narrative HPI Narrative: OTF CONDE, is a 83 F who presents to the emergency room after a fall. She apparently was in the hospital on 01/27/2024 after experiencing atrial fibrillation with rapid ventricular response rate. The patient was put on medication and discharged for outpatient follow-up. For reasons that are not entirely clear she presented back to the emergency room was noted to be in atrial fibrillation as well as acute kidney injury and cardiology was consulted for further evaluation and management. She denies any chest pain or shortness of breath or paroxysmal nocturnal dyspnea or pedal edema she previously was noted to have premature atrial complexes premature ventricular complexes and was on beta-carola, calcium carola, and lisinopril. The dosages of these have been reduced in the past. At this particular time she is asymptomatic with respect to her cardiac dysrhythmias. [facility] Medical History Atrial fibrillation, controlled Atrial premature depolarization Cardiac dysrhythmia CKD (chronic kidney disease) Contraction, premature ventricular Difficulty swallowing Ectopic atrial tachycardia Ectopic cardiac beats Essential hypertension Flu vaccine need History of ovarian cyst Hyperlipemia Hypertension Hypothyroidism Left foot pain Mitral valve disorder Nonrheumatic mitral (valve) insufficiency Osteoarthritis Palpitations Paroxysmal atrial fibrillation Sinus bradycardia Syncope and collapse Ventricular premature depolarization Vertigo Home Medications levothyroxine 50 mcg tablet 50 mcg PO DAILY 03/26/22 [History Last Taken 02/05/24] aspirin 81 mg chewable tablet 81 mg PO BID 09/24/23 [History Last Taken 02/06/24] atenolol 50 mg tablet 50 mg PO BID 3 months #180 tabs 12/21/23 [Rx Last Taken 02/06/24] lisinopril 20 mg tablet 20 mg PO BID #180 tabs 12/21/23 [Rx Last Taken 02/06/24] amlodipine 2.5 mg tablet 2.5 mg PO BID 02/06/24 [History Last Taken 02/06/24] furosemide 40 mg tablet (Lasix) 40 mg PO DAILY 02/06/24 [History Last Taken 02/06/24] Allergy/AdvReac Type Severity Reaction Status Date / Time Penicillins Allergy Anaphylaxis Verified 02/06/24 11:53 codeine AdvReac Abd Verified 02/06/24 11:53 cramps/diarrhea Family History Father Heart disease Myocardial infarction, Onset Age: 59 Black lung disease Brother Cancer Sister Cancer Breast Brother Bright's disease Brother Multiple sclerosis Surgical History History of appendectomy History of cholecystectomy History of esophageal surgery History of tubal ligation Social History household members: none Smoking Status: Never smoker alcohol intake: never substance use type: does not use caffeine: Yes Type: coffee Number of servings: 2 what type of physical activity do you participate in: walking frequency: 3-4 times per week ROS Constitutional Constitutional: Denies fever(s) or weight loss Eyes Eyes: Reports systems reviewed and no addt'l complaints, except as documented ENT HEENT: Reports systems reviewed and no addt'l complaints, except as documented Cardiovascular Cardiovascular: Reports palpitations; Denies chest pain at rest, chest pain with activity, dyspnea at rest, dyspnea on exertion, edema or paroxysmal nocturnal dyspnea Respiratory/Chest Respiratory/Chest: Denies dyspnea on exertion, productive cough, shortness of breath at rest or shortness of breath with exertion Gastrointestinal Gastrointestinal: Denies change in bowel habits, nausea, vomiting or weight changes Genitourinary Genitourinary: Denies difficulty urinating Musculoskeletal Musculoskeletal: Denies joint stiffness or muscle weakness Integumentary Integumentary: Denies lesions Neurologic Neurologic: Denies dizziness or syncope Psychiatric Psychiatric: Denies anxiety Endocrine Endocrinology: Denies excessive sweating or fatigue Hematologic/Lymphatic Hematologic/Lymphatic: Denies anemia Allergic/Immunologic Allergic/Immunologic: Denies seasonal rhinorrhea Risk Stratification Risk Stratification Applicable: No Objective Data Vital Signs: Vital Signs Temp Pulse Resp BP Pulse Ox O2 Del Method 98.3 F 99 18 114/80 95 Room Air 02/07/24 03:38 02/07/24 03:38 02/07/24 03:38 02/07/24 03:38 02/07/24 03:38 02/07/24 03:38 Oxygen Delivery Method Room Air Weight: 170 lb 6.677 oz Body Mass Index (BMI) 31.1 Intake & Output: Intake and Output for Last 24 Hours 02/05/24 02/06/24 02/07/24 23:59 23:59 23:59 Intake Total 900 / 900 1770 / 1770 Balance 900 / 900 1770 / 1770 Lab / Micro Data 02/07/24 06:35 02/07/24 06:35 Labs: Laboratory Results - last 24 hr 02/06/24 13:45: WBC 9.6, RBC 4.80, Hgb 14.3, Hct 45.2, MCV 94.2, MCH 29.8, MCHC 31.6 L, RDW Std Deviation 47.1 H, RDW Coeff of Cata 13.7, Plt Count 327, MPV 10.6, Immature Gran % (Auto) 0.500, Neut % (Auto) 65.1, Lymph % (Auto) 27.5, Montgomery % (Auto) 6.0, Eos % (Auto) 0.5, Baso % (Auto) 0.4, Absolute Neuts (auto) 6.3, Absolute Lymphs (auto) 2.65, Nucleated RBC % 0, Sodium 141, Potassium 4.2, Chloride 108 H, Carbon Dioxide 25.0, Anion Gap 8, BUN 32 H, Creatinine 2.15 H, Est GFR (MDRD) Af Amer 28 L, Est GFR (MDRD) Non-Af 23 L, BUN/Creatinine Ratio 14.9, Glucose 106, Calcium 9.9, Troponin I High Sens 15, B-Natriuretic Peptide 251.6 H 02/07/24 06:35: WBC 6.0, RBC 4.08 L, Hgb 12.3, Hct 38.8, MCV 95.1, MCH 30.1, MCHC 31.7 L, RDW Std Deviation 47.0 H, RDW Coeff of Cata 13.5, Plt Count 289, MPV 10.8, Immature Gran % (Auto) 0.200, Neut % (Auto) 53.5, Lymph % (Auto) 33.6, Montgomery % (Auto) 10.7 H, Eos % (Auto) 1.2, Baso % (Auto) 0.8, Absolute Neuts (auto) 3.2, Absolute Lymphs (auto) 2.00, Nucleated RBC % 0, Sodium 145, Potassium 3.5, Chloride 115 H, Carbon Dioxide 24.0, Anion Gap 6, BUN 27 H, Creatinine 1.61 H, Estim Creat Clear Calc 25.04, Est GFR (MDRD) Af Amer 39 L, Est GFR (MDRD) Non-Af 32 L, BUN/Creatinine Ratio 16.8, Glucose 104, Calcium 8.4 L, Phosphorus 3.3, Magnesium 2.2, Total Bilirubin 0.70, Direct Bilirubin 0.17, AST 16, ALT 15, Alkaline Phosphatase 55, Total Protein 5.9 L, Albumin 2.9 L, Globulin 3.0, Albumin/Globulin Ratio 1.0, Vitamin D 25-Hydroxy 31.0, TSH 6.87 H Cardiology Labs/Tests 02/06/24 13:45: WBC 9.6, RBC 4.80, Hgb 14.3, Hct 45.2, MCV 94.2, MCH 29.8, MCHC 31.6 L, Plt Count 327, MPV 10.6, Immature Gran % (Auto) 0.500, Neut % (Auto) 65.1, Lymph % (Auto) 27.5, Montgomery % (Auto) 6.0, Eos % (Auto) 0.5, Baso % (Auto) 0.4, Absolute Neuts (auto) 6.3, Nucleated RBC % 0, Sodium 141, Potassium 4.2, Chloride 108 H, Carbon Dioxide 25.0, Anion Gap 8, BUN 32 H, Creatinine 2.15 H, Est GFR (MDRD) Af Amer 28 L, Est GFR (MDRD) Non-Af 23 L, BUN/Creatinine Ratio 14.9, Glucose 106, Calcium 9.9, B-Natriuretic Peptide 251.6 H 02/07/24 06:35: WBC 6.0, RBC 4.08 L, Hgb 12.3, Hct 38.8, MCV 95.1, MCH 30.1, MCHC 31.7 L, Plt Count 289, MPV 10.8, Immature Gran % (Auto) 0.200, Neut % (Auto) 53.5, Lymph % (Auto) 33.6, Montgomery % (Auto) 10.7 H, Eos % (Auto) 1.2, Baso % (Auto) 0.8, Absolute Neuts (auto) 3.2, Nucleated RBC % 0, Sodium 145, Potassium 3.5, Chloride 115 H, Carbon Dioxide 24.0, Anion Gap 6, BUN 27 H, Creatinine 1.61 H, Est GFR (MDRD) Af Amer 39 L, Est GFR (MDRD) Non-Af 32 L, BUN/Creatinine Ratio 16.8, Glucose 104, Calcium 8.4 L, Phosphorus 3.3, Magnesium 2.2, Total Bilirubin 0.70, Direct Bilirubin 0.17 Rhythm: EKG: ECHO: Stress Test: Cardiac Cath: PCI: CT Surgery: Holter monitor: EPS: PPM: CXR: Chest CT Scan: Radiography Diagnostic Testing: Radiology Impression Femur X-Ray 02/06/24 12:15 IMPRESSION: Intact right femur. Electronically Signed: Bor Darden MD at 13:27 EDT , Tibia/Fibula X-Ray 02/06/24 12:15 IMPRESSION: Intact right tibia and fibula. Electronically Signed: Bro Darden MD at 13:26 EDT , ADDENDUM: 02/06/24 1458 IMPRESSION: undefined Chest X-Ray 02/06/24 13:32 IMPRESSION: No acute cardiopulmonary abnormality. Electronically Signed: Bro Darden MD at 14:54 EDT , Ankle X-Ray 02/06/24 16:13 IMPRESSION: Normal x-ray examination of the ankle. Electronically Signed: Jose Navarrete MD at 17:38 EDT , Knee X-Ray 02/06/24 17:00 IMPRESSION: 1. No acute fracture or dislocation. 2. CPPD with mild arthrosis. Electronically Signed: Jose Navarrete MD at 17:40 EDT , ADDENDUM: 02/06/24 1846 IMPRESSION: Suspect subtle nondisplaced oblique fracture of the proximal shaft of the fibula. Electronically Signed: Jose Navarrete MD at 18:38 EDT ,
[2024-02-07 09:11] LABS: International Normalized Ratio 1.1; Prothrombin Time (Protime)PT. 14.5 SECONDS (11.7-14.9)
[2024-02-07 09:35] VITALS: BP 104/78; PULSE 88; RESP 14; TEMP 36.3; O2SAT 96
[2024-02-07] MEDS: amLODIPine 10 MG Tablet PO (10:18)
[2024-02-07] MEDS: APIXABAN 2.5 MG TABLET (WCH) PO ×2 (10:18→21:11)
[2024-02-07] MEDS: Atenolol 50 MG Tablet PO ×2 (10:19→21:11)
[2024-02-07] MEDS: oxyCODONE 5 MG Tablet PO (10:24)
--- NOTE | 2024-02-07 13:03 | CT_ITS ---
CT RIGHT LOWER EXTREMITY WITH 3-D IMAGING CLINICAL INDICATION: right proximal fibular fxr TECHNIQUE: Axial CT images of the RIGHT lower extremity was performed without IV contrast material. Coronal and sagittal reformats were provided. RADIATION DOSAGE (If Supplied By Facility): CTDIvol = ( 15.35 ) mGy, DLP = ( 772.08 ) mGycm COMPARISON: Prior study dated: February 06, 2024. FINDINGS: Bones: Subtle nondisplaced oblique fracture of the proximal fibular shaft. Soft Tissues: The deep soft tissue structures are unremarkable. The superficial soft tissues are unremarkable without evidence of edema, hematoma, or foreign body. CT/Extremity Lower without Contra IMPRESSION: Subtle nondisplaced oblique fracture of the proximal fibular shaft. Electronically Signed: Filiberto Wells MD at 13:51 EDT ,
--- NOTE | 2024-02-07 14:33 | CASEMGMT ---
Therapy is recommending patient go to a correction facility short term for rehab. SW met with patient and her son Bro. SW introduced self and role at [facility]. SW explained therapy's recommendation for correction facility. Patient told SW she is not going to a correction facility. Bro then spoke up and told patient that he and his sister do not agree with patient going home at discharge. Patient asked how long she would have to go and SW told her that is up to her and how she does with therapy. Patient is agreeable to look at a list of facilities. SW asked Meghan to print SNF list for patient. Mary Bernard [employer]
--- NOTE | 2024-02-07 14:38 | CASEMGMT ---
Discharge Planning A list of?SNF providers including quality and resource use data and consistent with the patient's preferred geographic region, medical needs, and insurance network was created in [facility].? This list was provided to the RN ELIZABETH. Meghan Elizabeth, Discharge Planning Asst.
[2024-02-07 15:30] VITALS: BP 98/56; PULSE 78; RESP 16; TEMP 36.3; O2SAT 98
--- NOTE | 2024-02-07 16:04 | CASEMGMT ---
Met with?patient to complete MENENDEZ form. EMNENDEZ form explained to?patient who voiced understanding and signed form. Original form placed in pt?s chart and copy provided to patient.? Meghan Elizabeth, Discharge Planning Asst
[2024-02-07 21:09] VITALS: BP 116/80; PULSE 101; RESP 16; TEMP 36.5; O2SAT 96
[2024-02-08 03:14] VITALS: BP 121/72; PULSE 80; RESP 16; TEMP 36.7; O2SAT 96
[2024-02-08] MEDS: Levothyroxine 50 MCG Tablet PO (05:45)
--- NOTE | 2024-02-08 07:40 | PN.CARD_ITS ---
Subjective Subjective Patient seen and evaluated. Appears to be stable Objective Data Vital Signs: Vital Signs Temp Pulse Resp BP Pulse Ox O2 Del Method 98.1 F 80 16 121/72 H 96 Room Air 02/08/24 03:14 02/08/24 03:14 02/08/24 03:14 02/08/24 03:14 02/08/24 03:14 02/08/24 03:56 Oxygen Delivery Method Room Air Weight: 170 lb 6.677 oz Body Mass Index (BMI) 31.1 Intake & Output: Intake and Output for Last 24 Hours 02/06/24 02/07/24 02/08/24 23:59 23:59 23:59 Intake Total 900 / 900 2710 / 2710 60 / 60 Output Total 400 / 400 Balance 900 / 900 2310 / 2310 60 / 60 Lab / Micro Data 02/07/24 06:35 02/07/24 06:35 Labs: Laboratory Results - last 24 hr 02/07/24 06:35: PT 14.5, INR 1.1, Sodium 145, Potassium 3.5, Chloride 115 H, Carbon Dioxide 24.0, Anion Gap 6, BUN 27 H, Creatinine 1.61 H, Estim Creat Clear Calc 25.04, Est GFR (MDRD) Af Amer 39 L, Est GFR (MDRD) Non-Af 32 L, BUN/Creatinine Ratio 16.8, Glucose 104, Calcium 8.4 L, Phosphorus 3.3, Magnesium 2.2, Total Bilirubin 0.70, Direct Bilirubin 0.17, AST 16, ALT 15, Alkaline Phosphatase 55, Total Protein 5.9 L, Albumin 2.9 L, Globulin 3.0, Albumin/ Globulin Ratio 1.0, Vitamin D 25-Hydroxy 31.0, TSH 6.87 H Cardiology Labs/Tests 02/07/24 06:35: PT 14.5, INR 1.1, Sodium 145, Potassium 3.5, Chloride 115 H, Carbon Dioxide 24.0, Anion Gap 6, BUN 27 H, Creatinine 1.61 H, Est GFR (MDRD) Af Amer 39 L, Est GFR (MDRD) Non-Af 32 L, BUN/Creatinine Ratio 16.8, Glucose 104, Calcium 8.4 L, Phosphorus 3.3, Magnesium 2.2, Total Bilirubin 0.70, Direct Bilirubin 0.17 Rhythm: EKG: ECHO: Stress Test: Cardiac Cath: PCI: CT Surgery: Holter monitor: EPS: PPM: CXR: Chest CT Scan: Radiography Diagnostic Testing: Radiology Impression Tibia/Fibula X-Ray 02/06/24 12:15 IMPRESSION: Intact right tibia and fibula. Electronically Signed: Bro Darden MD at 13:26 EDT , ADDENDUM: 02/06/24 1458 IMPRESSION: undefined ADDENDUM: 02/07/24 1347 IMPRESSION: undefined Echocardiogram 02/06/24 16:58 Interpretation Summary Normal LV size. Left ventricular systolic function is normal. The estimated ejection fraction is 55 %. The left atrium is moderately enlarged. Pulmonary artery systolic pressure is 37 mmHg. Mild (1+) eccentric mitral valve insufficiency. Ordering Physician: Danni Tirado Referring Physician: Zeke Moses Performed By: Marcela Torres RCS Lower Extremity CT 02/07/24 13:03 IMPRESSION: Subtle nondisplaced oblique fracture of the proximal fibular shaft. Electronically Signed: Filiberto Wells MD at 13:51 EDT , Physical Exam Const alert and no apparent distress HEENT head/scalp atraumatic and moist oral mucous membranes Resp normal respiratory effort, no retractions, no use of accessory muscles and clear to auscultation bilaterally Cardio regular rate, regular rhythm, S1 normal heart sound and S2 normal heart sound GI normal to inspection, nondistended, normoactive bowel sounds, soft to palpation, non-tender and non-distended Assessment & Plan Assessment/Plan (1) Paroxysmal atrial fibrillation: PLAN: Patient appears to have paroxysmal atrial fibrillation. It now appears to be persistent. With her [id number] score of at least 3 she needs to be anticoagulated long-term. I would obtain an echocardiogram to assess her ventricular function. She can continue with the beta-carola with the atenolol 50 mg twice a day. She will also benefit from anticoagulation with Eliquis. (2) Essential hypertension: PLAN: Her blood pressure appears to be under fair control. I would recommend that we continue the beta-carola as well as the dihydropyridine calcium channel carola. The diuretic can be discontinued. (3) ROMAIN (acute kidney injury): PLAN: Will recommend discontinuation of the diuretic at this particular time and observation of her renal function. Thank you for allowing me to participate in the care of your patient. Please don't hesitate to call if any issues arise.
--- NOTE | 2024-02-08 07:50 | PN.HOSP_ITS ---
Reason for Visit Reason for Visit: Diagnoses Essential (primary) hypertension (02/06/24) Paroxysmal atrial fibrillation (02/06/24) Chronic atrial fibrillation, unspecified (02/06/24) Acute kidney failure, unspecified (02/06/24) Subjective Subjective Pain in RLE improved. Objective Data Objective Data Vital Signs: Vital Signs Temp Pulse Resp BP Pulse Ox O2 Del Method 36.7 C 80 16 121/72 H 96 Room Air 02/08/24 03:14 02/08/24 03:14 02/08/24 03:14 02/08/24 03:14 02/08/24 03:14 02/08/24 03:56 Oxygen Delivery Method Room Air Weight: 77.3 kg Body Mass Index (BMI) 31.1 Intake & Output: Intake and Output for Last 24 Hours 02/06/24 02/07/24 02/08/24 23:59 23:59 23:59 Intake Total 900 / 900 2710 / 2710 60 / 60 Output Total 400 / 400 Balance 900 / 900 2310 / 2310 60 / 60 Lab / Micro Data 02/07/24 06:35 02/08/24 08:25 Labs: Laboratory Results - last 24 hr 02/07/24 06:35: PT 14.5, INR 1.1, Sodium 145, Potassium 3.5, Chloride 115 H, Carbon Dioxide 24.0, Anion Gap 6, BUN 27 H, Creatinine 1.61 H, Estim Creat Clear Calc 25.04, Est GFR (MDRD) Af Amer 39 L, Est GFR (MDRD) Non-Af 32 L, BUN/Creatinine Ratio 16.8, Glucose 104, Calcium 8.4 L, Phosphorus 3.3, Magnesium 2.2, Total Bilirubin 0.70, Direct Bilirubin 0.17, AST 16, ALT 15, Alkaline Phosphatase 55, Total Protein 5.9 L, Albumin 2.9 L, Globulin 3.0, Albumin/Globulin Ratio 1.0, Vitamin D 25-Hydroxy 31.0, TSH 6.87 H Radiography Diagnostic Testing: Radiology Impression Tibia/Fibula X-Ray 02/06/24 12:15 IMPRESSION: Intact right tibia and fibula. Electronically Signed: Bro Darden MD at 13:26 EDT , ADDENDUM: 02/06/24 1458 IMPRESSION: undefined ADDENDUM: 02/07/24 1347 IMPRESSION: undefined Echocardiogram 02/06/24 16:58 Interpretation Summary Normal LV size. Left ventricular systolic function is normal. The estimated ejection fraction is 55 %. The left atrium is moderately enlarged. Pulmonary artery systolic pressure is 37 mmHg. Mild (1+) eccentric mitral valve insufficiency. Ordering Physician: Danni Tirado Referring Physician: Zeke Moses Performed By: Marcela Torres RCS Lower Extremity CT 02/07/24 13:03 IMPRESSION: Subtle nondisplaced oblique fracture of the proximal fibular shaft. Electronically Signed: Filiberto Wells MD at 13:51 EDT , Physical Exam Const alert and no apparent distress HEENT head/scalp atraumatic and moist oral mucous membranes Resp normal respiratory effort, no retractions, no use of accessory muscles and clear to auscultation bilaterally Cardio regular rate, regular rhythm, S1 normal heart sound and S2 normal heart sound GI normal to inspection, nondistended, normoactive bowel sounds, soft to palpation, non-tender and non-distended Extremity normal to inspection Assessment & Plan Assessment/Plan (1) Chronic atrial fibrillation with rapid ventricular response: PLAN: Plan ROMAIN on CKD: * Related to recent increase in Lasix, no orthostatic symptoms * Given her elevated BNP will only monitor without IV fluids for now * Monitor creatinine and urine output Recent fall: * No concerns of fracture based on the x-ray of tibia-fibula, femur * Get x-ray ankle and knee to rule out any fractures * PT OT evaluation regarding functionality and strength assessment Possible nondisplaced oblique fracture of the proximal shaft of the fibula. * CT showed subtle non-displaced obliquie fracture of proximal fibular shaft * DW Dr. Bonds on 02/06, boot, 50% weight bearing on RLE * Follow up with orthopaedics as outpt. Vitamin D deficiency * ergocalciferol for 8 weeks then recheck level. Chronic conditions: * A-fib: Has history of paroxysmal A-fib echocardiogram in 2018 showed 70% ejection fraction, CHADS2 DS 2 vas score is 4, she was previously on Eliquis which was discontinued and is now on aspirin 81 mg twice daily. continue home dose atenolol 50 mg twice daily. Continue aspirin 81 mg twice daily as per cardiology. Echocardiogram. Cardiology consult inpatient. * Nonrheumatic mitral valve insufficiency: Furosemide dose was recently increased, given the ROMAIN we will hold the dose for now. Cardiology consult * Hypothyroidism: Continue 50 mcg daily, TSH 6.87. Check free T4. DVT prophylaxis: On aspirin 81 mg twice daily will hold off any further anticoagulation Disposition: to SNF pending insurance approval. Charges/Coding Visit Charges Inpatient E&M: 74602 Subs Hosp L2
[2024-02-08 08:59] VITALS: BP 110/76; PULSE 78; RESP 14; TEMP 36.5; O2SAT 98
[2024-02-08] MEDS: Atenolol 50 MG Tablet PO (09:01)
[2024-02-08] MEDS: APIXABAN 2.5 MG TABLET (WCH) PO (09:01)
[2024-02-08] MEDS: amLODIPine 10 MG Tablet PO (09:01)
[2024-02-08] MEDS: Ergocalciferol 1.25 MG (50, 000 UNIT) Capsule PO (09:01)
[2024-02-08] MEDS: Acetaminophen 325 MG Tablet 650 MG PO (09:05)
--- NOTE | 2024-02-08 09:20 | CASEMGMT ---
JOSÉ MIGUEL met with patient and her daughter Bobby. Patient and Bobby are interested in TCU with [facility] being the second choice. SW let them know SW will make the referral and let them know. JOSÉ MIGUEL made a referral to Cyn in TCU. Mary TOSCANO
[2024-02-08 09:37] LABS: Anion Gap 5 (5-15); BUN 17 mg/dL (7-18); BUN/Creat Ratio 13.7 RATIO (10-20); Chloride 116 mmol/L (98-107); Creatinine, Serum 1.24 mg/dL (0.55-1.02); EST Glomerular Filtration Rate 44 mL/min (>60); Est Glom Filt Rate - Afr Amer 53 mL/min (>60); Estimated Creatinine Clearance 32.51 ml/min; Glucose 116 mg/dL (74-106); Potassium 3.7 mmol/L (3.5-5.1); Sodium Level 144 mmol/L (136-145); T4 Free Direct 1.32 ng/dL (0.76-1.46)
--- NOTE | 2024-02-08 12:50 | TREXTCAR_ITS ---
Diet Diet Order/Speech Therapy: 02/06/24 16:58 Diet: Cardiac - Heart Healthy Food consistency:: Regular Liquid Consistency:: Regular/Thin Is pt able to select menu?: Yes Routine Orders/Code Status Routine Lab Work: CBC and BMP Therapies Weight Bearing: Partial weight bearing (50% RLE. Walking boot when up. ) Physical Therapy: Eval and Treat Occupational Therapy: Eval and Treat Problem/Diagnosis (1) Chronic atrial fibrillation with rapid ventricular response: Status: Chronic Code(s): I48.20 - Chronic atrial fibrillation, unspecified Plan ROMAIN on CKD: * Related to recent increase in Lasix, no orthostatic symptoms * Given her elevated BNP will only monitor without IV fluids for now * Monitor creatinine and urine output Recent fall: * No concerns of fracture based on the x-ray of tibia-fibula, femur * Get x-ray ankle and knee to rule out any fractures * PT OT evaluation regarding functionality and strength assessment Possible nondisplaced oblique fracture of the proximal shaft of the fibula. * CT showed subtle non-displaced obliquie fracture of proximal fibular shaft * DW Dr. Bonds on 02/06, boot, 50% weight bearing on RLE * Follow up with orthopaedics as outpt. Vitamin D deficiency * ergocalciferol for 8 weeks then recheck level. Chronic conditions: * A-fib: Has history of paroxysmal A-fib echocardiogram in 2018 showed 70% ejection fraction, CHADS2 DS 2 vas score is 4, she was previously on Eliquis which was discontinued and is now on aspirin 81 mg twice daily. continue home dose atenolol 50 mg twice daily. Continue aspirin 81 mg twice daily as per cardiology. Echocardiogram. Cardiology consult inpatient. * Nonrheumatic mitral valve insufficiency: Furosemide dose was recently increased, given the ROMAIN we will hold the dose for now. Cardiology consult * Hypothyroidism: Continue 50 mcg daily, TSH 6.87. Check free T4. DVT prophylaxis: On aspirin 81 mg twice daily will hold off any further anticoagulation Disposition: to SNF pending insurance approval. Allergies/Procedures Done in Hospital Allergies Penicillins Allergy (Verified 02/06/24 11:53) Anaphylaxis codeine Adverse Reaction (Verified 02/06/24 11:53) Abd cramps/diarrhea Procedures: None Type of Care/Length of Stay Estimated LOS: Convalescent Care Less Than 30 days Type of Care Needed: Skilled Rehab Potential: Good Prognosis: Good Additional Orders/Day of Discharge Day of Discharge: 02/08/24 Discharge Plan Admission Admit Date/Time: 02/06/24 15:30 Primary Reason for Your Visit: fibular fracture. Attending Provider: Enio Boogie Primary Care Provider: Zeke Moses Consulting Providers: Danni Tirado Discharge Orders/Prescriptions Prescriptions: New ergocalciferol (vitamin D2) [Vitamin D2] 1,250 mcg (50,000 unit) Capsule 1,250 mcg PO Q7D Qty: 7 0RF Eliquis 5 mg Tablet 2.5 mg PO BID Qty: 0 0RF oxycodone 5 mg Tablet 5 mg PO Q4H PRN PRN (Reason: Pain Score 6-10) 3 Days Qty: 12 0RF Continued levothyroxine 50 mcg tablet 50 mcg PO DAILY aspirin 81 mg tablet,chewable 81 mg PO BID amlodipine 2.5 mg tablet 2.5 mg PO BID atenolol 50 mg tablet 50 mg PO BID 90 Days Qty: 180 1RF lisinopril 20 mg tablet 20 mg PO BID Qty: 180 1RF Discontinued furosemide [Lasix] 40 mg tablet 40 mg PO DAILY Referrals / Follow Up: Zeke Moses MD [Primary Care Provider] - Within 2 Weeks [facility] [Provider Group] - Within 1 Month Seth Bonds MD [Med Staff - Active Staff] - Within 2 Weeks Disposition Disposition (needs filled in before D/C Order can be placed): [facility]
--- NOTE | 2024-02-08 13:09 | PCM.DC.SUM ---
Providers Date of Admission: 02/06/24 Primary Care Physician: Dr. Zeke Moses MD Consultations 02/06/24 16:15 Consult: Cardiology Routine Consulting Provider: Danni Tirado Reason for Consult: Afib, MVR EMERGENT Consult: No MD Notified: Yes Date Notified: 02/06/24 Time Notified: 16:16 Method of Notification: Text Reason For Visit: AFIB Diagnosis Discharge Diagnosis (1) Chronic atrial fibrillation with rapid ventricular response: Status: Chronic Code(s): I48.20 - Chronic atrial fibrillation, unspecified Plan ROMAIN on CKD: Related to recent increase in Lasix, no orthostatic symptoms Given her elevated BNP will only monitor without IV fluids for now Monitor creatinine and urine output Recent fall: No concerns of fracture based on the x-ray of tibia-fibula, femur Get x-ray ankle and knee to rule out any fractures PT OT evaluation regarding functionality and strength assessment Possible nondisplaced oblique fracture of the proximal shaft of the fibula. CT showed subtle non-displaced obliquie fracture of proximal fibular shaft DW Dr. Bonds on 02/06, boot, 50% weight bearing on RLE Follow up with orthopaedics as outpt. Vitamin D deficiency ergocalciferol for 8 weeks then recheck level. Chronic conditions: A-fib: Has history of paroxysmal A-fib echocardiogram in 2018 showed 70% ejection fraction, CHADS2 DS 2 vas score is 4, she was previously on Eliquis which was discontinued and is now on aspirin 81 mg twice daily. continue home dose atenolol 50 mg twice daily. Continue aspirin 81 mg twice daily as per cardiology. Echocardiogram. Cardiology consult inpatient. Nonrheumatic mitral valve insufficiency: Furosemide dose was recently increased, given the ROMAIN we will hold the dose for now. Cardiology consult Hypothyroidism: Continue 50 mcg daily, TSH 6.87. Check free T4. DVT prophylaxis: On aspirin 81 mg twice daily will hold off any further anticoagulation Disposition: to SNF pending insurance approval. Medications at Discharge Home Medications levothyroxine 50 mcg tablet 50 mcg PO DAILY 03/26/22 aspirin 81 mg chewable tablet 81 mg PO BID 09/24/23 atenolol 50 mg tablet 50 mg PO BID 3 months #180 tabs 12/21/23 lisinopril 20 mg tablet 20 mg PO BID #180 tabs 12/21/23 amlodipine 2.5 mg tablet 2.5 mg PO BID 02/06/24 apixaban 5 mg tablet (Eliquis) 2.5 mg (1/2 x 5 mg) PO BID #0 tabs 02/08/24 ergocalciferol (vitamin D2) 1,250 mcg (50,000 unit) capsule (Vitamin D2) 1,250 mcg PO Q7D #7 caps 02/08/24 oxycodone 5 mg tablet 5 mg PO Q4H PRN PRN Pain Score 6-10 3 days #12 tabs 02/08/24 Hospital Course Operations None Procedures None Summary of Care Provided Minutes Spent on Discharge: 32 Weight / BMI Weight Weight: 77.3 kg Body Mass Index (BMI) 31.1 ABG / Lab / Microbiology Data 02/07/24 06:35 02/08/24 08:25 Laboratory: Laboratory Results - last 24 hr 02/08/24 08:25: Sodium 144, Potassium 3.7, Chloride 116 H, Carbon Dioxide 23.0, Anion Gap 5, BUN 17, Creatinine 1.24 H, Estim Creat Clear Calc 32.51, Est GFR (MDRD) Af Amer 53 L, Est GFR (MDRD) Non-Af 44 L, BUN/Creatinine Ratio 13.7, Glucose 116 H, Calcium 9.0, Free T4 1.32 Radiography Diagnostic Testing: Radiology Impression Tibia/Fibula X-Ray 02/06/24 12:15 IMPRESSION: Intact right tibia and fibula. Electronically Signed: Bro Darden MD at 13:26 EDT Reading Location ID and State: [address] [place] [address] Tel , Service support , ADDENDUM: 02/06/24 1458 IMPRESSION: undefined ADDENDUM: 02/07/24 1347 IMPRESSION: undefined Echocardiogram 02/06/24 16:58 Interpretation Summary Normal LV size. Left ventricular systolic function is normal. The estimated ejection fraction is 55 %. The left atrium is moderately enlarged. Pulmonary artery systolic pressure is 37 mmHg. Mild (1+) eccentric mitral valve insufficiency. Ordering Physician: Danni Tirado Referring Physician: Zeke Moses Performed By: Marcela Torres RCS Lower Extremity CT 02/07/24 13:03 IMPRESSION: Subtle nondisplaced oblique fracture of the proximal fibular shaft. Electronically Signed: Filiberto Wells MD at 13:51 EDT , D/C Instructions Discharge Diet: No restrictions Meaningful Use Info Meaningful Use Diagnoses (Choose all that apply): None applicable Discharge Plan Admission Admit Date/Time: 02/06/24 15:30 Primary Reason for Your Visit: fibular fracture. Attending Provider: Enio Boogie Primary Care Provider: Zeke Moses Consulting Providers: Danni Tirado Discharge Orders/Prescriptions Prescriptions: New ergocalciferol (vitamin D2) [Vitamin D2] 1,250 mcg (50,000 unit) Capsule 1,250 mcg PO Q7D Qty: 7 0RF Eliquis 5 mg Tablet 2.5 mg PO BID Qty: 0 0RF oxycodone 5 mg Tablet 5 mg PO Q4H PRN PRN (Reason: Pain Score 6-10) 3 Days Qty: 12 0RF Continued levothyroxine 50 mcg tablet 50 mcg PO DAILY aspirin 81 mg tablet,chewable 81 mg PO BID amlodipine 2.5 mg tablet 2.5 mg PO BID atenolol 50 mg tablet 50 mg PO BID 90 Days Qty: 180 1RF lisinopril 20 mg tablet 20 mg PO BID Qty: 180 1RF Discontinued furosemide [Lasix] 40 mg tablet 40 mg PO DAILY Referrals / Follow Up: [facility] [Provider Group] - Within 1 Month Zeke Moses MD [Primary Care Provider] - Within 2 Weeks Seth Bonds MD [Med Staff - Active Staff] - Within 2 Weeks Disposition Disposition (needs filled in before D/C Order can be placed): Detention Facility Charges/Coding Visit Charges Inpatient E&M: 09282 Disch Hosp >30min
--- NOTE | 2024-02-08 13:20 | CASEMGMT ---
Patient was approved for TCU. SW notified physician and patient. Plan: d/c to [facility] TCU under skilled level of care. Mary TOSCANO
--- NOTE | 2024-02-08 14:21 | CASEMGMT ---
JOSÉ MIGUEL called patient's daughter Bobby and let her know patient was approved for TCU and she will go today. JOSÉ MIGUEL also told Bobby how to get to TCU. Bobby thanked JOSÉ MIGUEL for the update. Plan: d/c to [facility] TCU under skilled level of care. Mary TOSCANO
== END 2024-02-08 14:23 | disposition skilled nursing facility (03) ==
LOC: ED 15:23 → PCU 15:37
PROVIDERS: Admitting Provider Internal Medicine; Emergency Provider Emergency Medicine; PCP Internal Medicine
DX: N17.9 Acute kidney failure, unspecified (principal); I48.0 Paroxysmal atrial fibrillation; S82.434A Nondisplaced oblique fracture of shaft of right fibula, initial encounter for closed fracture; W01.0XXA Fall on same level from slipping, tripping and stumbling without subsequent striking against object, initial encounter; R06.02 Shortness of breath; N18.9 Chronic kidney disease, unspecified; E78.5 Hyperlipidemia, unspecified; I34.0 Nonrheumatic mitral (valve) insufficiency; I12.9 Hypertensive chronic kidney disease with stage 1 through stage 4 chronic kidney disease, or unspecified chronic kidney disease; E03.9 Hypothyroidism, unspecified; Z79.899 Other long term (current) drug therapy; Z79.890 Hormone replacement therapy; Z79.82 Long term (current) use of aspirin; Y93.89 Activity, other specified; Y92.009 Unspecified place in unspecified non-institutional (private) residence as the place of occurrence of the external cause; E55.9 Vitamin D deficiency, unspecified
CPT/HCPCS: 36415; 71045; 73552; 73560; 73590; 73610; 73700; 80048; 80053; 80076; 82306; 83735; 83880; 84100; 84439; 84443; 84484; 85025; 85610; 93005; 93306; 96361; 96374; 97162; 97166; 97530; 97535; 99221; 99285; J7030; G0378

== ENCOUNTER 2024-02-08 14:29 | Inpatient (IN) | payer MEDICARE, SELFPAY ==
[2024-02-08 14:47] VITALS: BP 109/63; PULSE 99; RESP 16; RESP 17; TEMP 36.2; O2SAT 99; BMI 31.6
[2024-02-08] MEDS: Aspirin 81 MG TAB.CHEW PO (17:00)
--- NOTE | 2024-02-08 19:49 | PCM.HP.STD ---
HPI - General General Date of Admission: 02/08/24 Date of Service: 02/08/24 Chief Complaint: Here for rehabilitation. HPI Narrative 02/06/2024 OTF CONDE, is a 83 Female who presents to [facility] lower extremity injury. Both legs gave out, fell, injured right lower extremity. No head injury, no LOC, able to take few steps with assistance. X-ray showed non-displaced fracture right proximal fibula, Dr. Bonds recommended WBAT. Cardizem 20mg iv for atrial fibrillation with RVR. BUN 32, Creatinine 2.15, BNP 251, Troponin okay. Chest X-ray negative. 02/06/2024 Admit to [facility]. Cardiology consult for atrial fibrillation with RVR, patient unable to afford Eliquis. Hold Furosemide for ROMAIN. PT/OT for debility. 02/06/2024 Echo Normal LV size. LVSF normal. EF 55% PASP 37mm HG. 02/07/2024 Difficulty with therapy 2/2 right leg pain. ROMAIN 2/2 recent increase in Furosemide. PT/OT for Debility. 02/08/2024 Right lower extremity pain improved. CT right lower extremity showed subtle non-displaced oblique fracture proximal fibular shaft. Dr. Bonds recommended boot, 50% weight bearing right lower extremity. Vitamin D for Vitamin D deficiency. 02/08/2024 Admit to TCU with debility, here for rehabilitation, strengthening, prior to discharge home alone. [facility] Medical History (Updated 02/08/24 @ 19:[address] Son Herron MD) Atrial fibrillation, controlled Atrial premature depolarization Cardiac dysrhythmia CKD (chronic kidney disease) Contraction, premature ventricular Difficulty swallowing Ectopic atrial tachycardia Ectopic cardiac beats Essential hypertension Flu vaccine need History of ovarian cyst Hyperlipemia Hypertension Hypothyroidism Left foot pain Mitral valve disorder Nonrheumatic mitral (valve) insufficiency Osteoarthritis Palpitations Paroxysmal atrial fibrillation Sinus bradycardia Syncope and collapse Ventricular premature depolarization Vertigo Home Medications levothyroxine 50 mcg tablet 50 mcg PO DAILY thyroid 03/26/22 [History Last Taken 02/05/24] aspirin 81 mg chewable tablet 81 mg PO BID blood thinner 09/24/23 [History Last Taken 02/06/24] atenolol 50 mg tablet 50 mg PO BID BP/pulse 3 months #180 tabs 12/21/23 [Rx Last Taken 02/06/24] lisinopril 20 mg tablet 20 mg PO BID BP #180 tabs 12/21/23 [Rx Last Taken 02/06/24] amlodipine 2.5 mg tablet 2.5 mg PO BID BP 02/06/24 [History Last Taken 02/06/24] apixaban 5 mg tablet (Eliquis) 2.5 mg (1/2 x 5 mg) PO BID blood thinner #0 tabs 02/08/24 [Rx Last Taken Unknown] ergocalciferol (vitamin D2) 1,250 mcg (50,000 unit) capsule (Vitamin D2) 1,250 mcg PO Q7D supplement #7 caps 02/08/24 [Rx Last Taken 02/08/24] oxycodone 5 mg tablet 5 mg PO Q4H PRN PRN Pain Score 6-10 3 days #12 tabs 02/08/24 [Rx Last Taken Unknown] Allergy/AdvReac Type Severity Reaction Status Date / Time Penicillins Allergy Anaphylaxis Verified 02/06/24 11:53 codeine AdvReac Abd Verified 02/06/24 11:53 cramps/diarrhea Family History Father Heart disease Myocardial infarction, Onset Age: 59 Black lung disease Brother Cancer Sister Cancer Breast Brother Bright's disease Brother Multiple sclerosis Surgical History History of appendectomy History of cholecystectomy History of esophageal surgery History of tubal ligation Social History household members: none Smoking Status: Never smoker alcohol intake: never substance use type: does not use caffeine: Yes Type: coffee Number of servings: 2 what type of physical activity do you participate in: walking frequency: 3-4 times per week ROS Constitutional Constitutional: Denies chills, fever(s) or weight gain ENT HEENT: Denies headache(s), nasal congestion or nasal discharge Cardiovascular Cardiovascular: Denies chest pain or palpitations Respiratory/Chest Respiratory/Chest: Denies cough, excessive phlegm production or shortness of breath with exertion Gastrointestinal Gastrointestinal: Denies abdominal pain, nausea or vomiting Genitourinary Genitourinary: Denies dysuria Musculoskeletal Musculoskeletal: Reports other Details: Right leg pain. ; Denies joint pain or joint swelling Integumentary Integumentary: Denies rash or wounds Neurologic Neurologic: Denies focal weakness, numbness or tingling Psychiatric Psychiatric: Denies anxiety, auditory hallucinations, depression, homicidal ideation or suicidal ideation Vital Signs Vital Signs Vital Signs: 02/08/24 14:47 02/08/24 14:47 Temperature 97.2 F L Temperature Source Temporal Pulse Rate 99 Pulse Rhythm Irregular Pulse Strength Normal (2+) Respiratory Rate 16 17 Respiratory Effort Normal Non-Labored Respiratory Depth Normal Respiratory Pattern Normal Blood Pressure 109/63 Blood Pressure Mean 78 Blood Pressure Source Monitor Blood Pressure Position Semi-Fowlers Blood Pressure Location Left Arm Pulse Ox 99 Oxygen Delivery Method Room Air Room Air Weight Weight: 78.608 kg Body Mass Index (BMI) 31.6 Physical Exam Const alert General Appearance: cooperative HEENT normocephalic Eyes PERRL and EOMs intact bilaterally Neck supple, no JVD and no carotid bruits Resp normal respiratory effort, normal air movement and clear to auscultation bilaterally Cardio regular rate and regular rhythm GI normal to inspection, nondistended, normoactive bowel sounds, non-tender and non-distended Extremity normal capillary refill General Extremity: Negative for edema Skin no rashes or lesions noted General Skin Exam: no breakdown Psych affect normal Appearance: appropriate Assessment & Plan Assessment/Plan (1) Debility: (2) Fracture of right fibula: (3) Chronic atrial fibrillation with rapid ventricular response: (4) ROMAIN (acute kidney injury): (5) Hypothyroidism: (6) Hypertension: QUALIFIERS: Hypertension type: essential hypertension Qualified Code(s): I10 - Essential (primary) hypertension (7) (HFpEF) heart failure with preserved ejection fraction: PLAN: Plan 83 year old female with below past medical history hospitalized for right fibular fracture, complicated by afib with rvr, acute kidney injury, admitted to TCU with debility, here for rehabilitation, strengthening, prior to discharge home alone. Debility - PT/OT. Pain - Tylenol 1000mg q6 prn pain (1-5), Oxycodone 5mg q4 prn pain (6-10). Bowel - senna/colace 1 tablet bid, Magnesium citrate 300ml daily prn. Adult immunization - Administer pneumonia vaccine, covid vaccine, flu vaccine as appropriate. DVT prophylaxis - Eliquis. Hypertension - Atenolol 50mg bid, Lisinopril 20mg bid, Amlodipine 2.5mg bid. Atrial fibrillation - Atenolol 50mg bid, Eliquis 2.5mg bid, she can go back on Aspirin 81mg bid on discharge. Vitamin D deficiency - Vitamin D 1.25mg qweek. Hypothyroidism - Levothyroxine 50mcg daily.
[2024-02-08] MEDS: Lisinopril 20 MG Tablet PO (21:28)
[2024-02-08] MEDS: APIXABAN 2.5 MG TABLET (WCH) PO (21:28)
[2024-02-08] MEDS: amLODIPine 2.5 MG Tablet PO (21:29)
[2024-02-08] MEDS: Atenolol 50 MG Tablet PO (21:29)
[2024-02-08] MEDS: Senna/Docusate Sodium 1 Tablet PO (21:41)
[2024-02-08 21:43] VITALS: BP 125/61; PULSE 86
[2024-02-08] MEDS: Acetaminophen 500 MG Tablet 1000 MG PO (22:14)
[2024-02-09] MEDS: Acetaminophen 500 MG Tablet 1000 MG PO ×3 (04:30→21:47)
[2024-02-09] MEDS: Levothyroxine 50 MCG Tablet PO (04:30)
[2024-02-09 04:40] VITALS: BMI 31.6
[2024-02-09 06:02] LABS: Absolute Lymphocyte Count 1.79 X10^3/uL (0.83-4.51); Absolute Neutrophil Count 2.3 X10^3/uL (2.0-7.7); Basophil# 0.04 X10^3/uL; Basophil% 0.8 % (0-1); Eosinophil# 0.16 X10^3/uL; Eosinophils% 3.4 % (0-5); Hematocrit 37.7 % (37-47); Hemoglobin 11.8 g/dL (12.0-15.0); Lymphocyte # 1.79 X10^3/ul (0.83-4.51); Lymphocyte % 37.6 % (19-41); Mean Corp Hgb Conc 31.3 g/dL (32-36); Mean Corpuscular Hgb 30.1 pg (27.0-32.0); Mean Corpuscular Volume 96.2 fL (81-99); Mean Platelet Vol. 10.5 fl (6.2-12.0); Monocyte# 0.48 X10^3/uL; Monocyte% 10.1 % (0-10); NRBC Flagged by Analyzer 0 % (0-5); Neutrophil # 2.26 X10^3/uL (2.7-7.7); Neutrophil % 47.5 % (47-70); Platelet Count 264 K/mm3 (150-450); RBC Distribution Width CV 13.5 % (11.6-14.6); RBC Distribution Width SD 47.8 fl (35.1-43.9); Red Blood Count 3.92 M/mm3 (4.2-5.4); White Blood Count 4.8 K/mm3 (4.4-11.0)
[2024-02-09 06:39] LABS: Anion Gap 6 (5-15); BUN 19 mg/dL (7-18); Calcium,Total 8.8 mg/dL (8.5-10.1); Chloride 111 mmol/L (98-107); Creatinine, Serum 1.19 mg/dL (0.55-1.02); EST Glomerular Filtration Rate 46 mL/min (>60); Est Glom Filt Rate - Afr Amer 56 mL/min (>60); Estimated Creatinine Clearance 34.12 ml/min; Glucose 96 mg/dL (74-106); Potassium 3.8 mmol/L (3.5-5.1); Sodium Level 142 mmol/L (136-145)
[2024-02-09] MEDS: APIXABAN 2.5 MG TABLET (WCH) PO (09:33)
[2024-02-09] MEDS: Senna/Docusate Sodium 1 Tablet PO (09:34)
[2024-02-09] MEDS: amLODIPine 2.5 MG Tablet PO (09:34)
[2024-02-09] MEDS: Atenolol 50 MG Tablet PO ×2 (09:34→21:46)
[2024-02-09] MEDS: Tuberculin,Purif.prot.deriv. 50 TU/ML Vial 0.1 ML ID (09:40)
--- NOTE | 2024-02-09 10:27 | NURSING ---
Called to schedule f/u with Dr. Bonds, spoke with staff, they will return call. Let them know patient prefers Mondays if possible.
[2024-02-09 10:50] VITALS: BP 94/48; PULSE 93; RESP 20; TEMP 36.6; O2SAT 97
--- NOTE | 2024-02-09 13:00 | NURSING ---
Push Connector Assembler Note; Activity Asset: Gwendolyn Loomis is independent in her choice of daily activities. When not visit w/family or friends she enjoys word search, tv, reading or resting. She welcomes visits w/issue clerk and therapy dog when available. Staff will remind her of weekly activities and respect her right to say no.
--- NOTE | 2024-02-09 14:48 | NURSING ---
Addendum entered by Cristal Bender 02/09/24 15:13: Lia from [facility] calls back regarding appt and appt is changes to 03/07/24 at 1030 with Rachel Thomas. Patient made aware. Original Note: Patient upset when seeing f/u appts that she will be seeing Stan Shanks with Dr. Paez office on 03/06/24. She requests to see someone else in office if possible. Dr. Paez office contacted and message left. Awaiting call back.
[2024-02-09 16:00] VITALS: BP 94/48; PULSE 93; RESP 20; TEMP 36.6; O2SAT 97
--- NOTE | 2024-02-09 16:05 | PCM.PN.DRR ---
Documented by User: Yecenia Sainz 02/09/24 16:25 TCU RX Drug Regimen Review Subjective/Objective Subjective/Objective: Subjective: TCU Admission. 83 YOF presented to the ER with lower extremity injury. Hospitalized for right fibular fracture, complicated by afib with rvr, acute kidney injury. Admitted to TCU with debility for strengthening and rehabilitation. Objective: Allergies Penicillins Allergy (Verified 02/06/24 11:53) Anaphylaxis codeine Adverse Reaction (Verified 02/06/24 11:53) Abd cramps/diarrhea Current Medications Generic Name Dose Route Start Last Admin Trade Name Freq PRN Reason Stop Dose Admin Acetaminophen 1,000 mg 02/08/24 22:00 02/09/24 14:36 Acetaminophen 500 Mg Tablet PO 1,000 mg Q8 KAMRAN Administration Amlodipine Besylate 2.5 mg 02/08/24 22:00 02/09/24 09:34 Amlodipine 2.5 Mg Tablet PO 2.5 mg BID KAMRAN Administration Protocol Apixaban 2.5 mg 02/08/24 22:00 02/09/24 09:33 Apixaban 2.5 Mg Tablet ([facility]) PO 2.5 mg BID KAMRAN Administration Atenolol 50 mg 02/08/24 22:00 02/09/24 09:34 Atenolol 50 Mg Tablet PO 50 mg BID KAMRAN Administration Protocol Ergocalciferol 1.25 mg 02/15/24 08:00 Ergocalciferol 1.25 Mg (50, 000 Unit) Capsule PO Q7D KAMRAN Levothyroxine Sodium 50 mcg 02/09/24 06:00 02/09/24 04:30 Levothyroxine 50 Mcg Tablet PO 50 mcg DAILY@0600 KAMRAN Administration Lisinopril 20 mg 02/08/24 22:00 02/09/24 09:36 Lisinopril 20 Mg Tablet PO Not Given BID KAMRAN Protocol Magnesium Citrate 300 ml 02/08/24 20:02 Magnesium Citrate 300 Ml PO DAILY PRN Constipation Senna/Docusate Sodium 1 tablet 02/08/24 22:00 02/09/24 09:34 Senna/Docusate Sodium 1 Tablet PO 1 tablet BID KAMRAN Administration Tramadol HCl 50 mg 02/09/24 07:45 Tramadol 50 Mg Tablet PO Q6H PRN PRN Pain Score 1-10 Tuberculin PPD 0.1 ml 02/16/24 10:00 Tuberculin,Purif.Prot.Deriv. 50 Tu/Ml Vial ID 02/16/24 10:01 X1 ONE Problem List (Updated 02/08/24 @ 19:[address] Son Herron MD) (HFpEF) heart failure with preserved ejection fraction (Acute) Hypertension (Chronic) Debility (Acute) Chronic atrial fibrillation with rapid ventricular response (Chronic) Fracture of right fibula (Acute) ROMAIN (acute kidney injury) (Acute) Hypothyroidism (Chronic) Vital Signs Temp Pulse Resp BP Pulse Ox O2 Del Method 97.9 F 93 20 H 94/48 L 97 Room Air 02/09/24 10:50 02/09/24 10:50 02/09/24 10:50 02/09/24 10:50 02/09/24 10:50 02/09/24 10:50 Oxygen Delivery Method Room Air Weight: 78.381 kg Body Mass Index (BMI) 31.6 Sodium 142 mmol/L (136-145) 02/09/24 05:31 Potassium 3.8 mmol/L (3.5-5.1) 02/09/24 05:31 Chloride 111 mmol/L (98-107) H 02/09/24 05:31 Carbon Dioxide 25.0 mmol/L (21.0-32.0) 02/09/24 05:31 Anion Gap 6 (5-15) 02/09/24 05:31 BUN 19 mg/dL (7-18) H 02/09/24 05:31 Creatinine 1.19 mg/dL (0.55-1.02) H 02/09/24 05:31 Est GFR (MDRD) Af Amer 56 mL/min (>60) L 02/09/24 05:31 Est GFR (MDRD) Non-Af 46 mL/min (>60) L 02/09/24 05:31 BUN/Creatinine Ratio 16.0 RATIO (10-20) 02/09/24 05:31 Glucose 96 mg/dL (74-106) 02/09/24 05:31 Assessment/Plan: 1. Pain: acetaminophen 1000mg PO Q8 and tramadol 50mg PO Q6H PRN pain 1-10. Resident has not had any doses of tramadol. Please continue to monitor for increased pain and PRN usage. 2. Bowel: senna/docusate 1T PO BID and magnesium citrate 300mL PO daily PRN constipation. Resident has not had any PRN doses or documented bowel movements. Please continue to monitor for constipation and PRN usage. 3. Hypertension/atrial fibrillation: atenolol 50mg PO BID, lisinopril 20mg PO BID, amlodipine 2.5mg PO BID and apixaban 2.5mg PO BID. Please consider adding hold parameters to blood pressure medications as resident has had several low blood pressures (last /48, , ). Thanks. Please consider changing apixaban to 5mg dose as the resident only meets 1 criteria for dose (age >80, but weight is >60kg and SCr is <1.5mg/dL). Thanks. Resident to resume aspirin 81mg PO BID on discharge (please see physician note). Per cardiology note from 01/28/24, resident was on Eliquis at one time but could not afford it so she was changed to aspirin 81mg BID. Please continue to monitor BP (last ), HR (last 93), S/S of bleeding, hemoglobin (last 11.8 g/dL), potassium (last 3.8mmol/L), swelling, and SCr. 4. Hypothyroidism: levothyroxine 50mcg PO daily. Please continue to monitor TSH (last 02/07/24), T4 (last 02/08/24) and S/S of hypothyroidism. 5. Vitamin D deficiency: ergocalciferol 1.25mg PO weekly. Please continue to monitor vitamin D levels (last 02/07/24). Assessment/Plan for indications treated with psychotropic medications: None Medical chart and medication regimen reviewed. The following medication irregularities or issues were identified: 1. Atenolol 50mg PO BID, lisinopril 20mg PO BID, amlodipine 2.5mg PO BID. Please consider adding hold parameters to blood pressure medications as resident has had several low blood pressures (last , , ). Thanks. 2. Apixaban 2.5mg PO BID. Please consider changing apixaban to 5mg dose as the resident only meets 1 criteria for dose (age >80, but weight is >60kg and SCr is <1.5mg/dL). Thanks. Date Date of Note:: 02/09/24 Documented by User: Dr. Son Herron MD 02/09/24 17:37 TCU RX Drug Regimen Review Provider Comments Provider responsibility Provider Comments to Recommendations by Pharmacy: Agree
[2024-02-09] MEDS: APIXABAN 2.5 MG TABLET (WCH) 5 MG PO (21:47)
[2024-02-09] MEDS: Lisinopril 20 MG Tablet PO (21:48)
[2024-02-09 22:00] VITALS: BP 110/68; PULSE 84; RESP 16
[2024-02-10] MEDS: Acetaminophen 500 MG Tablet 1000 MG PO ×3 (05:44→22:17)
[2024-02-10] MEDS: Levothyroxine 50 MCG Tablet PO (05:44)
[2024-02-10 05:50] VITALS: PULSE 75; RESP 16; O2SAT 98
--- NOTE | 2024-02-10 05:50 | NURSING ---
C/o SOB with exertion, no resp distress observed or reported. Lung sounds clear, spo2 98/% on RA, respirations 16/min even and unlabored. 2L O2 applied per order per patient request for comfort. Denies further requests. Call light in reach.
[2024-02-10 05:58] VITALS: BMI 31.6
[2024-02-10] MEDS: Atenolol 50 MG Tablet PO ×2 (08:11→22:17)
[2024-02-10] MEDS: Lisinopril 20 MG Tablet PO ×2 (08:11→22:18)
[2024-02-10] MEDS: APIXABAN 5 MG TABLET PO ×2 (09:24→22:18)
--- NOTE | 2024-02-10 13:08 | CASEMGMT ---
Social Work Met with patient to complete initial assessment. Introduced self and role. Verified/updated contacts. patient confirmed code status as full code. Pt declined completing advanced directives. SW educated to importance of completing those documents and pt still denied. SW educated to [facility] insurance with [employer] 02/17, EDC 02/22, and continued stay is not guaranteed with each review. Pt's goal is to return home alone and denies any concerns. Pt is aware of her children's concerns and brushes them off. SW explained IDT will make recommendations for DC plans, returning work, driving, etc. Pt expressed understanding. SW will continue to follow. COURT BrambilaW
[2024-02-10 22:00] VITALS: PULSE 104; RESP 16; O2SAT 98
[2024-02-11 05:48] VITALS: BMI 32.1
[2024-02-11] MEDS: Levothyroxine 50 MCG Tablet PO (06:21)
[2024-02-11] MEDS: Acetaminophen 500 MG Tablet 1000 MG PO ×2 (06:22→21:31)
[2024-02-11 06:47] VITALS: PULSE 72; RESP 14; O2SAT 98
[2024-02-11 08:49] VITALS: BP 101/62; PULSE 82; RESP 17; TEMP 36.3; O2SAT 99
[2024-02-11] MEDS: Atenolol 50 MG Tablet PO ×2 (09:31→21:33)
[2024-02-11] MEDS: APIXABAN 5 MG TABLET PO ×2 (09:31→21:30)
[2024-02-11] MEDS: Lisinopril 20 MG Tablet PO ×2 (09:31→21:33)
[2024-02-11 09:34] VITALS: BP 108/59; PULSE 82
--- NOTE | 2024-02-11 10:09 | NURSING ---
Addendum entered by Amanda Finn 02/11/24 10:30: dr mike updated on EKG showing AFIB, HR 101. new order to restart norvasc 2.5mg BID as previously ordered, but dc'd d/t low BP couple days ago. BP parameters added, hold if SBP <100 Original Note: pt c/o SOB & irregular HR, since coming back from therapy. difficulty measuring HR, monitor says 65. sat 99% on RM air. denies palpitations. pt given AM meds recently. STAT EKG ordered at this time.
[2024-02-11] MEDS: amLODIPine 2.5 MG Tablet PO ×2 (10:37→21:33)
[2024-02-11 12:12] VITALS: BP 123/72; PULSE 102
--- NOTE | 2024-02-11 16:05 | CHAPLAIN ---
Type of Pastoral Visit _x__ Initial Visit ___ Follow-up Visit ___ On-call Visit ___ General Patient Visit ___ Spiritual Assessment ___ Family Conference ___ Bereavement ___ Rapid Response ___ Code Blue ___ Other (describe below) Pastoral Care Referral From _x__ Patient ___ Family ___ Nurse ___ Physician ___ Machine Feller ___ Pizza Delivery ___ Other (describe below) Sacrament/Intervention _x__ Active listening ___ Anointing ___ Shinto ___ Bereavement ___ Communion ___ Jennifer exploration ___ _x__ Life review _x__ Prayer ___ Reconciliation ___ Sacrament of Sick ___ Supportive presence ___ Wedding ___ Other (describe below) Pastoral Comments patient was on the phone with her sister when this instructional material director entered the room and she quickly ended the call; pt states that she is a Jain and a preachers daughter from the [facility] [employer] and [employer] generation; pt wants to know mandaeism background of this instructional material director before proceeding; pt then gives some life review and an update on her situation; pt is direct in her manner but declares no needs or worries; pt states that she would welcome a prayer for her support today
[2024-02-11 21:36] VITALS: BP 102/59; PULSE 76
[2024-02-12] MEDS: Levothyroxine 50 MCG Tablet PO (04:48)
[2024-02-12] MEDS: Acetaminophen 500 MG Tablet 1000 MG PO ×2 (04:48→20:51)
[2024-02-12 05:55] VITALS: BMI 31.1
[2024-02-12 08:30] VITALS: BP 104/55; PULSE 91; RESP 18; TEMP 36.3; O2SAT 96
[2024-02-12] MEDS: APIXABAN 5 MG TABLET PO ×2 (08:32→20:52)
[2024-02-12] MEDS: amLODIPine 2.5 MG Tablet PO ×2 (08:32→20:51)
[2024-02-12] MEDS: Atenolol 50 MG Tablet PO ×2 (08:34→20:51)
[2024-02-12 09:27] VITALS: O2SAT 96
[2024-02-12 10:22] VITALS: BP 98/37; PULSE 96
--- NOTE | 2024-02-12 10:24 | NURSING ---
Rechecked BP 98/37 after taking norvasc and tenormin approx 1hr later, Lisinipril held at this time per pt request early AM. pt worried about her BP meds causing this drop in BP. states at home SBP 120's. Explained to pt that this nurse can call [facility] office to see if they can see her sooner than February regarding her issues. pt agreeable.
--- NOTE | 2024-02-12 14:47 | NURSING ---
SCHOOL LEADER reported that pt has been dizzy with all transfers when sitting to standing and takes some time for pt to get bearings. pts blood pressure has been on low side per her usual. will check orthostatic vitals when pt done visiting, family at bedside at this time.
[2024-02-12 16:27] VITALS: BP 104/63; BP 105/47; BP 91/64; PULSE 88; PULSE 91
[2024-02-12 18:03] VITALS: PULSE 102; RESP 18; O2SAT 98
[2024-02-12] MEDS: Lisinopril 20 MG Tablet PO (20:50)
[2024-02-12] MEDS: MELATONIN 10 MG TABLET PO (20:51)
[2024-02-13] MEDS: Acetaminophen 500 MG Tablet 1000 MG PO (05:11)
[2024-02-13] MEDS: Levothyroxine 50 MCG Tablet PO (05:14)
[2024-02-13 05:27] VITALS: BMI 31.1
[2024-02-13 08:51] VITALS: BP 101/52; PULSE 95; RESP 17; TEMP 36.4; O2SAT 98
[2024-02-13] MEDS: APIXABAN 5 MG TABLET PO ×2 (08:53→20:50)
[2024-02-13] MEDS: amLODIPine 2.5 MG Tablet PO (08:54)
[2024-02-13] MEDS: Atenolol 50 MG Tablet PO ×2 (08:54→20:51)
[2024-02-13] MEDS: Lisinopril 20 MG Tablet PO (08:54)
[2024-02-13 09:23] VITALS: O2SAT 95
[2024-02-13] MEDS: 0.9% Normal Saline (500mL Bag) 500 ML 999 ML IV (19:02)
[2024-02-13 19:37] VITALS: BP 109/58; PULSE 100; RESP 16; O2SAT 98
--- NOTE | 2024-02-13 19:45 | NURSING ---
BP post 500ml NS bolus 109/58, HR 100. No c/o dizziness. Patient states I feel good. No s/sx hypotension at this time. Dr. Herron updated via phone, no new orders received.
[2024-02-13] MEDS: MELATONIN 10 MG TABLET PO (20:50)
[2024-02-13 20:53] VITALS: BP 113/64; PULSE 90; RESP 16; O2SAT 96
[2024-02-14 05:25] VITALS: BMI 31.6
[2024-02-14] MEDS: Levothyroxine 50 MCG Tablet PO (05:37)
--- NOTE | 2024-02-14 08:41 | NURSING ---
Offered covid vaccine, VIS provided. She refuses at this time.
--- NOTE | 2024-02-14 11:15 | NURSING ---
Able to get appt with Rachel Thomas NP with [facility] earlier on 02/29/24 @ [address] mike had DC'd lisinopril & norvasc on 02/13/24. remains on Atenolol. pt had c/o dizziness & SOB with all transfers. pt concerned about going home and with how she was feeling. pt did get 500cc bolus NS yesterday as well. pt did have some SOB this AM during therapy again but denied dizziness today will continue to monitor.
[2024-02-14 11:42] VITALS: BP 100/54; PULSE 88; RESP 17; TEMP 36.2; O2SAT 98
[2024-02-14] MEDS: APIXABAN 5 MG TABLET PO ×2 (11:45→22:02)
[2024-02-14] MEDS: Atenolol 50 MG Tablet PO ×2 (11:48→22:02)
[2024-02-14 14:17] VITALS: TEMP 36.3
--- NOTE | 2024-02-14 15:39 | CASEMGMT ---
Social Work BIMS () & PHQ2 (0/2) completed. Joy BURT
[2024-02-14] MEDS: MELATONIN 10 MG TABLET PO (22:02)
[2024-02-14 22:09] VITALS: BP 102/53; PULSE 102
[2024-02-14 22:10] VITALS: PULSE 102; O2SAT 97
[2024-02-15 06:00] VITALS: BMI 31.4
[2024-02-15] MEDS: Levothyroxine 50 MCG Tablet PO (06:05)
[2024-02-15 07:47] VITALS: BMI 31.6
[2024-02-15] MEDS: APIXABAN 5 MG TABLET PO ×2 (10:01→21:18)
[2024-02-15] MEDS: Ergocalciferol 1.25 MG (50, 000 UNIT) Capsule PO (10:01)
[2024-02-15] MEDS: Atenolol 50 MG Tablet PO ×2 (10:01→21:18)
[2024-02-15] MEDS: Magnesium Citrate 300 ML PO (13:10)
[2024-02-15 16:00] VITALS: BP 132/65; PULSE 97; RESP 18; TEMP 36.2; O2SAT 98
[2024-02-15] MEDS: MELATONIN 10 MG TABLET PO (21:18)
--- NOTE | 2024-02-15 21:21 | NURSING ---
Patient administered mag citrate today, has been effective.
[2024-02-15 21:22] VITALS: BP 114/65; PULSE 93
[2024-02-16 05:43] VITALS: BMI 31.1
[2024-02-16 05:53] LABS: Absolute Lymphocyte Count 2.28 X10^3/uL (0.83-4.51); Absolute Neutrophil Count 2.8 X10^3/uL (2.0-7.7); Basophil# 0.02 X10^3/uL; Basophil% 0.3 % (0-1); Eosinophil# 0.08 X10^3/uL; Eosinophils% 1.4 % (0-5); Hematocrit 36.4 % (37-47); Hemoglobin 11.1 g/dL (12.0-15.0); Lymphocyte # 2.28 X10^3/ul (0.83-4.51); Lymphocyte % 39.7 % (19-41); Mean Corp Hgb Conc 30.5 g/dL (32-36); Mean Corpuscular Hgb 29.7 pg (27.0-32.0); Mean Corpuscular Volume 97.3 fL (81-99); Mean Platelet Vol. 10.6 fl (6.2-12.0); Monocyte% 10.4 % (0-10); NRBC Flagged by Analyzer 0 % (0-5); Neutrophil # 2.76 X10^3/uL (2.7-7.7); Platelet Count 288 K/mm3 (150-450); RBC Distribution Width CV 13.9 % (11.6-14.6); Red Blood Count 3.74 M/mm3 (4.2-5.4); White Blood Count 5.8 K/mm3 (4.4-11.0)
[2024-02-16] MEDS: Levothyroxine 50 MCG Tablet PO (06:57)
[2024-02-16 08:37] LABS: Anion Gap 3 (5-15); BUN 16 mg/dL (7-18); BUN/Creat Ratio 14.5 RATIO (10-20); Calcium,Total 9.1 mg/dL (8.5-10.1); Chloride 112 mmol/L (98-107); EST Glomerular Filtration Rate 50 mL/min (>60); Est Glom Filt Rate - Afr Amer 61 mL/min (>60); Estimated Creatinine Clearance 36.55 ml/min; Glucose 96 mg/dL (74-106); Potassium 4.4 mmol/L (3.5-5.1); Sodium Level 143 mmol/L (136-145)
[2024-02-16] MEDS: APIXABAN 5 MG TABLET PO ×2 (09:33→20:15)
[2024-02-16] MEDS: Atenolol 50 MG Tablet PO ×2 (09:33→20:15)
--- NOTE | 2024-02-16 09:34 | NURSING ---
Public Information Coordinator Note; MDS for 02/15/2024 Complete
[2024-02-16] MEDS: Tuberculin,Purif.prot.deriv. 50 TU/ML Vial 0.1 ML ID (09:38)
[2024-02-16] MEDS: 0.9% Saline Lock 10 ML Syringe IV (09:42)
[2024-02-16 09:47] VITALS: BP 100/56; PULSE 87
--- NOTE | 2024-02-16 12:07 | CASEMGMT ---
Social Work IDT met with patient and dtr, then son and gddtr via conference call for care plan meeting. Discussed patient's progress in PT/OT/ST/SN. Educated to [facility] insurance with NRD 02/17, EDC 02/22 and continued stay is not guaranteed with each review. Discussed IDTs recommendations for DC. ST expressed concerns with pt's cognition, especially regarding meds, finances, returning to work and driving. 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 Pt had stated she is no longer going to work. SW acknowledged pt is fiercely independent but wants to ensure pt's safety at home. IDT also recommending life alert in the home. Pt agreeable. SW provided CNC MACHINE SETTER, life alert and miniature train driver rehab resources to pt and dtr. Family in agreement with IDTs recommendations. Pt remaining stubborn to suggestions, but expressed understanding of recommendations. SW will continue to follow for DC planning. Opal Dalton, HOOK AND EYE ATTACHER LEAD CARE MANAGER
[2024-02-16 16:00] VITALS: BP 114/69; PULSE 82; RESP 16; TEMP 36.4; O2SAT 96
[2024-02-16 20:10] VITALS: BP 100/62; PULSE 114
[2024-02-16] MEDS: MELATONIN 10 MG TABLET PO (20:16)
[2024-02-17 04:51] VITALS: BMI 31.1
[2024-02-17] MEDS: Levothyroxine 50 MCG Tablet PO (06:05)
[2024-02-17] MEDS: APIXABAN 5 MG TABLET PO ×2 (09:39→21:46)
[2024-02-17] MEDS: Atenolol 50 MG Tablet PO ×2 (09:39→21:46)
[2024-02-17 14:53] VITALS: BP 109/61; PULSE 88; RESP 18; TEMP 36.4; O2SAT 98
[2024-02-17] MEDS: MELATONIN 10 MG TABLET PO (21:46)
[2024-02-18 06:00] VITALS: BMI 30.7
[2024-02-18] MEDS: Levothyroxine 50 MCG Tablet PO (06:03)
[2024-02-18] MEDS: Acetaminophen 500 MG Tablet 1000 MG PO (06:05)
[2024-02-18] MEDS: APIXABAN 5 MG TABLET PO ×2 (07:55→20:42)
--- NOTE | 2024-02-18 14:26 | CASEMGMT ---
Social Work JOSÉ MIGUEL received a call from the patient's daughter concerning discharge. Patient's daughter informed JOSÉ MIGUEL that the patient believes that she will be discharged on 02/21/2024. SW reviewed patient insurance determination. Patient estimated discharge date is 02/23/2024. SW reviewed home health care recommendations and resource with the daughter. Patient's daughter informed JOSÉ MIGUEL that she would like the patient to discharge home with home health RN/PT/OT services and further information regarding driving rehab. SW discussed driving rehab barriers and informed family to follow up with PCP for van driver restriction as physician is concerned about limiting patient's driving. Patient's daughter requested for patient choice list be sent via e-mail for review. JOSÉ MIGUEL sent a list of [facility] providers including quality and resource use data consistent with the patient's preferred geographic region, medical needs and insurance network via [employer] link. SW requires patient choice for home health care referral. DORCAS Wiseman
--- NOTE | 2024-02-18 15:38 | CASEMGMT ---
Social Work SW met with patient at bedside to complete NOMNCs. [employer] NOMNC skilled service end date: 02/22/2024. Patient notified that discharge date is 02/23/24. The patient is agreeable to discharge plan with home with life alert medical information and home health care services through PT only. Patient declined drivers rehab, but information was left at bedside per daughter request. Patient signed NOMNC and a copy was left at bedside. SW placed a copy of NOMNC in patients chart. Patient to discharge home with home health on 02/23/2024. DORCAS Wiseman
[2024-02-18 15:39] VITALS: BP 119/67; PULSE 95; RESP 21; TEMP 36.7; O2SAT 94
[2024-02-18 20:00] VITALS: BP 101/61; PULSE 99; RESP 16
[2024-02-18] MEDS: Atenolol 50 MG Tablet PO (20:42)
[2024-02-18] MEDS: MELATONIN 10 MG TABLET PO (20:43)
[2024-02-18 22:00] VITALS: PULSE 99; RESP 16; O2SAT 95
[2024-02-19 05:52] VITALS: BMI 30.8
[2024-02-19] MEDS: Levothyroxine 50 MCG Tablet PO (06:18)
[2024-02-19 08:10] VITALS: BP 107/63; PULSE 78; RESP 18; TEMP 36.6; O2SAT 99
[2024-02-19] MEDS: Atenolol 50 MG Tablet PO ×2 (08:11→22:39)
[2024-02-19] MEDS: APIXABAN 5 MG TABLET PO ×2 (08:12→22:39)
[2024-02-19 13:44] VITALS: BP 109/51; PULSE 92; RESP 18; TEMP 36.4; O2SAT 98
[2024-02-19] MEDS: MELATONIN 10 MG TABLET PO (22:39)
[2024-02-19 23:00] VITALS: PULSE 79; RESP 14; O2SAT 97
[2024-02-20 06:00] VITALS: BMI 31.1
[2024-02-20] MEDS: Levothyroxine 50 MCG Tablet PO (06:04)
[2024-02-20] MEDS: 0.9% Saline Lock 10 ML Syringe IV (06:09)
[2024-02-20] MEDS: Senna/Docusate Sodium 1 Tablet PO (06:09)
[2024-02-20 06:18] VITALS: PULSE 90; RESP 16; O2SAT 97
[2024-02-20] MEDS: APIXABAN 5 MG TABLET PO ×2 (10:51→22:10)
[2024-02-20] MEDS: Atenolol 50 MG Tablet PO ×2 (10:52→22:09)
[2024-02-20 16:00] VITALS: BP 117/67; PULSE 95; RESP 18; TEMP 36.3; O2SAT 99
[2024-02-20 22:05] VITALS: BP 120/57; PULSE 84
[2024-02-20] MEDS: MELATONIN 10 MG TABLET PO (22:09)
[2024-02-21] MEDS: Levothyroxine 50 MCG Tablet PO (04:48)
[2024-02-21 05:26] VITALS: BMI 30.8
--- NOTE | 2024-02-21 07:46 | DS.PCM_ITS ---
Providers Date of Admission: 02/08/24 Primary Care Physician: Dr. Zeke Moses MD Reason For Visit: A FIB Diagnosis Discharge Diagnosis (1) Debility: Status: Acute Code(s): R53.81 - Other malaise (2) Fracture of right fibula: Status: Acute Code(s): S82.401A - Unspecified fracture of shaft of right fibula, initial encounter for closed fracture (3) Chronic atrial fibrillation with rapid ventricular response: Status: Resolved Code(s): I48.20 - Chronic atrial fibrillation, unspecified (4) ROMAIN (acute kidney injury): Status: Resolved Code(s): N17.9 - Acute kidney failure, unspecified (5) Hypothyroidism: Status: Inactive Code(s): E03.9 - Hypothyroidism, unspecified (6) Hypertension: Status: Chronic Code(s): I10 - Essential (primary) hypertension Qualifiers: Hypertension type: essential hypertension Qualified Code(s): I10 - Essential (primary) hypertension (7) (HFpEF) heart failure with preserved ejection fraction: Status: Acute Code(s): I50.30 - Unspecified diastolic (congestive) heart failure Plan 83 year old female with below past medical history hospitalized for right fibular fracture, complicated by afib with rvr, acute kidney injury, admitted to TCU with debility, here for rehabilitation, strengthening, prior to discharge home alone. * Debility - PT/OT. * Pain - Tylenol 1000mg q6 prn pain (1-5), Oxycodone 5mg q4 prn pain (6-10). * Bowel - senna/colace 1 tablet bid, Magnesium citrate 300ml daily prn. * Adult immunization - Administer pneumonia vaccine, covid vaccine, flu vaccine as appropriate. * DVT prophylaxis - Eliquis. * Hypertension - Atenolol 50mg bid, Lisinopril 20mg bid, Amlodipine 2.5mg bid. * Atrial fibrillation - Atenolol 50mg bid, Eliquis 2.5mg bid, she can go back on Aspirin 81mg bid on discharge. * Vitamin D deficiency - Vitamin D 1.25mg qweek. * Hypothyroidism - Levothyroxine 50mcg daily. Medications at Discharge Home Medications levothyroxine 50 mcg tablet 50 mcg PO DAILY thyroid 03/26/22 aspirin 81 mg chewable tablet 81 mg PO BID blood thinner 09/24/23 atenolol 50 mg tablet 50 mg PO BID BP/pulse 3 months #180 tabs 12/21/23 amlodipine 2.5 mg tablet 2.5 mg PO BID BP 02/06/24 acetaminophen 500 mg tablet 1,000 mg (2 x 500 mg) PO Q8H PRN Pain 1-10 Or Fever #0 tabs 02/21/24 Hospital Course Operations None Procedures None Summary of Care Provided Minutes Spent on Discharge: 35 Hospital Course: 83 year old female with below past medical history hospitalized for right fibular fracture, complicated by afib with rvr, acute kidney injury, admitted to TCU with debility, here for rehabilitation, strengthening, prior to discharge home alone. Discharge home alone 02/23/2024, [facility] PT. Physical Exam Const alert General Appearance: cooperative HEENT normocephalic Eyes PERRL and EOMs intact bilaterally Neck supple, no JVD and no carotid bruits Resp normal respiratory effort, normal air movement and clear to auscultation bilaterally Cardio regular rate and regular rhythm GI normal to inspection, nondistended, normoactive bowel sounds, non-tender and non-distended Extremity normal capillary refill General Extremity: Negative for edema Skin no rashes or lesions noted General Skin Exam: no breakdown Psych affect normal Appearance: appropriate Weight / BMI Weight Weight: 76.022 kg Body Mass Index (BMI) 30.8 ABG / Lab / Microbiology Data 02/16/24 05:19 02/16/24 05:19 D/C Instructions Discharge Diet: No restrictions Discharge Activity: Return to Normal Activity, May Shower and Use Walker Weight Bearing Status: Weight bearing as tolerated Call your doctor if you observe: Fever of 101 or Higher, Inability to urinate, Inability to have a bowel movement, Shortness of breath, Dizziness, Fainting spells, Swelling in the ankles, Chest pain and Uncontrolled pain Additional Instructions: Discharge home alone 02/23/2024, [facility] PT. Please Follow Up With: Seth Bonds MD When: As scheduled. Meaningful Use Info Meaningful Use Diagnoses (Choose all that apply): None applicable Discharge Plan Admission Admit Date/Time: 02/08/24 14:29 Primary Reason for Your Visit: Debility. Attending Provider: Son Herron Chi Primary Care Provider: Zeke Moses Instructions Additional Instructions / Restrictions: Discharge home alone 02/23/2024, [facility] PT. Discharge Orders/Prescriptions Prescriptions: New acetaminophen 500 mg Tablet 1,000 mg PO Q8H PRN (Reason: Pain 1-10 Or Fever) Qty: 0 0RF Continued levothyroxine 50 mcg tablet 50 mcg PO DAILY aspirin 81 mg tablet,chewable 81 mg PO BID atenolol 50 mg tablet 50 mg PO BID 90 Days Qty: 180 1RF Discontinued ergocalciferol (vitamin D2) [Vitamin D2] 1,250 mcg (50,000 unit) Capsule 1,250 mcg PO Q7D Qty: 7 0RF Eliquis 5 mg Tablet 2.5 mg PO BID Qty: 0 0RF oxycodone 5 mg Tablet 5 mg PO Q4H PRN PRN (Reason: Pain Score 6-10) 3 Days Qty: 12 0RF lisinopril 20 mg tablet 20 mg PO BID Qty: 180 1RF No Action amlodipine 2.5 mg tablet 2.5 mg PO BID Referrals / Follow Up: Koko Paez MD [Med Staff - Active Staff] - 02/29/24 10:30 am (Will see Rachel Thomas NP) Zeke Moses MD [Primary Care Provider] - Seth Bonds MD [Med Staff - Active Staff] - 03/22/24 9:00 am (02/29/24 @ 3:00pm Ebonie has a physical therapy appointment) Disposition Disposition (needs filled in before D/C Order can be placed): Home Health [facility]
[2024-02-21] MEDS: Atenolol 50 MG Tablet PO ×2 (08:05→22:37)
[2024-02-21] MEDS: APIXABAN 5 MG TABLET PO ×2 (08:05→22:36)
[2024-02-21] MEDS: 0.9% Saline Lock 10 ML Syringe IV (08:06)
--- NOTE | 2024-02-21 10:58 | MDS.RN ---
Information for the mds was obtained from review of the clinical record, interview of resident, staff, and direct observation of resident's care.
--- NOTE | 2024-02-21 12:25 | CASEMGMT ---
Social Work SW received home health care choice from daughter. Patient choice is [facility] and [facility] referral. Patient requested for home health for PT services only. DORCAS Wiseman
[2024-02-21 13:33] VITALS: BP 108/52; PULSE 77; RESP 18; TEMP 36.3; O2SAT 96
--- NOTE | 2024-02-21 16:46 | CASEMGMT ---
Social Work SW was notified by [facility] that the patient has been accepted for PT services. SW notified the patient of acceptance for home health care services. Patient informed SW that she is agreeable to plan. Patient requested that SW notify patient's daughter. SW notified patient's daughter of transition of care plans for home health care. SOC 02/24/24. Patient family to provide transport at discharge on 02/23/2024 Discharge: Patient home with [facility] PT on 02/23/24 JOSÉ MIGUEL updated patient discharge disposition DORCAS Wiseman
[2024-02-21 22:30] VITALS: BP 118/58; PULSE 91
[2024-02-21] MEDS: MELATONIN 10 MG TABLET PO (22:36)
[2024-02-22 04:52] VITALS: BMI 30.7
[2024-02-22] MEDS: Levothyroxine 50 MCG Tablet PO (05:40)
[2024-02-22 07:37] VITALS: PULSE 80
[2024-02-22] MEDS: Atenolol 50 MG Tablet PO ×2 (09:10→21:48)
[2024-02-22] MEDS: Ergocalciferol 1.25 MG (50, 000 UNIT) Capsule PO (09:10)
[2024-02-22] MEDS: APIXABAN 5 MG TABLET PO ×2 (09:10→21:48)
[2024-02-22 10:17] VITALS: BMI 30.7
[2024-02-22 13:31] VITALS: BP 106/64; PULSE 68; RESP 16; TEMP 36.1; O2SAT 98
[2024-02-22] MEDS: Acetaminophen 500 MG Tablet 1000 MG PO (15:12)
[2024-02-22] MEDS: MELATONIN 10 MG TABLET PO (21:48)
[2024-02-22 21:50] VITALS: BP 122/56; PULSE 77; RESP 16
[2024-02-23 03:35] VITALS: PULSE 88; RESP 18; O2SAT 95
[2024-02-23 05:43] VITALS: BMI 30.6
[2024-02-23 05:53] LABS: Absolute Lymphocyte Count 2.17 X10^3/uL (0.83-4.51); Absolute Neutrophil Count 1.8 X10^3/uL (2.0-7.7); Basophil# 0.03 X10^3/uL; Basophil% 0.6 % (0-1); Eosinophil# 0.11 X10^3/uL; Eosinophils% 2.4 % (0-5); Hematocrit 37.8 % (37-47); Hemoglobin 12.2 g/dL (12.0-15.0); Lymphocyte # 2.17 X10^3/ul (0.83-4.51); Lymphocyte % 46.8 % (19-41); Mean Corp Hgb Conc 32.3 g/dL (32-36); Mean Corpuscular Hgb 30.9 pg (27.0-32.0); Mean Corpuscular Volume 95.7 fL (81-99); Mean Platelet Vol. 10.4 fl (6.2-12.0); Monocyte# 0.53 X10^3/uL; Monocyte% 11.4 % (0-10); NRBC Flagged by Analyzer 0 % (0-5); Neutrophil # 1.79 X10^3/uL (2.7-7.7); Neutrophil % 38.6 % (47-70); Platelet Count 293 K/mm3 (150-450); RBC Distribution Width CV 13.7 % (11.6-14.6); RBC Distribution Width SD 48.2 fl (35.1-43.9); Red Blood Count 3.95 M/mm3 (4.2-5.4); White Blood Count 4.6 K/mm3 (4.4-11.0)
[2024-02-23] MEDS: Levothyroxine 50 MCG Tablet PO (05:55)
[2024-02-23 06:20] LABS: Anion Gap 3 (5-15); BUN 15 mg/dL (7-18); BUN/Creat Ratio 11.9 RATIO (10-20); Calcium,Total 9.2 mg/dL (8.5-10.1); Chloride 111 mmol/L (98-107); Creatinine, Serum 1.26 mg/dL (0.55-1.02); EST Glomerular Filtration Rate 43 mL/min (>60); Est Glom Filt Rate - Afr Amer 52 mL/min (>60); Glucose 101 mg/dL (74-106); Potassium 4.2 mmol/L (3.5-5.1); Sodium Level 141 mmol/L (136-145)
[2024-02-23] MEDS: APIXABAN 5 MG TABLET PO (09:23)
[2024-02-23] MEDS: Atenolol 50 MG Tablet PO (09:23)
--- NOTE | 2024-02-23 10:51 | CASEMGMT ---
Social Work SW met with patient to complete discharge MDS interviews. BIMS PHQ2 0/2. Joy BURT
--- NOTE | 2024-02-23 11:30 | CASEMGMT ---
Addendum entered by Kami Mendes 02/23/24 11:52: Grounds Manager received a call from [facility] Lokesh Duron who informed SW that the front wheeled walker can be delivered within the hour to patient bedside. If patient would like FWW delivered to home; it will not arrive until tomorrow. SW spoke with patient, patient is agreeable to bedside delivery. DORCAS Wiseman Original Note: Social Work SW met with patient at bedside to review discharge disposition. Patient informed SW that she is ready to transition home with home health care services. Patient informed SW that her daughter will be providing transportation to home between [id number]. SW inquired about any other needs for safe discharge plans. Patient denied any needs. 1115- SW received notification by bedside RN that the patient is inquiring about a walker. SW met with patient at bedside to inquire about DME needs. Patient informed SW that therapy is recommending a front wheeled walker. SW met with therapy team, OT confirmed recommendations for a front wheeled walker. SW completed Rx for front wheeled walker and provided to Physician, Dr. Herron for verbal notification and Rx. Dr. Herron provided signature. SW submitted referral for DME to [facility]. Patient was notified of DME order. Patient informed SW that her daughter, Bobby will be at hospital at 1230P for leaf size picker. Patient requested that FWW gets delivered to the home. Patient informed SW that she would like SW to review discharge plans with her daughter. SW to follow for discharge review with daughter. Discharge: Home with [facility] PT services; DME Front Wheeled Walker ([place]) DORCAS Wiseman
[2024-02-23 12:23] VITALS: BP 117/78; PULSE 95; RESP 17; TEMP 36.8; O2SAT 99
== END 2024-02-23 12:30 | disposition home health service (06) | DRG 560 ==
PROVIDERS: Admitting Provider Family Medicine Geriatric Medicine; PCP Internal Medicine; Visit Provider Family Medicine Geriatric Medicine
DX: S82.831D Other fracture of upper and lower end of right fibula, subsequent encounter for closed fracture with routine healing (principal); I13.0 Hypertensive heart and chronic kidney disease with heart failure and stage 1 through stage 4 chronic kidney disease, or unspecified chronic kidney disease; I50.32 Chronic diastolic (congestive) heart failure; I48.0 Paroxysmal atrial fibrillation; E03.9 Hypothyroidism, unspecified; N18.9 Chronic kidney disease, unspecified; E55.9 Vitamin D deficiency, unspecified; E78.5 Hyperlipidemia, unspecified; W19.XXXD Unspecified fall, subsequent encounter; Z79.82 Long term (current) use of aspirin; Z79.01 Long term (current) use of anticoagulants; Z79.899 Other long term (current) drug therapy; Z79.890 Hormone replacement therapy
CPT/HCPCS: 36415; 80048; 85025; 92507; 92523; 93005; 97110; 97116; 97129; 97130; 97162; 97166; 97530; 97535; 97802; J7040; A4216

== ENCOUNTER → 2024-02-29 | Outpatient (CLI) | payer MEDICARE, SELFPAY ==
[2024-02-29 11:40] LABS: Absolute Lymphocyte Count 2.18 X10^3/uL (0.83-4.51); Absolute Neutrophil Count 3.3 X10^3/uL (2.0-7.7); Basophil# 0.03 X10^3/uL; Basophil% 0.5 % (0-1); Eosinophil# 0.03 X10^3/uL; Eosinophils% 0.5 % (0-5); Hematocrit 41.1 % (37-47); Hemoglobin 13.4 g/dL (12.0-15.0); Lymphocyte # 2.18 X10^3/ul (0.83-4.51); Lymphocyte % 36.3 % (19-41); Mean Corp Hgb Conc 32.6 g/dL (32-36); Mean Corpuscular Hgb 30.7 pg (27.0-32.0); Mean Corpuscular Volume 94.1 fL (81-99); Mean Platelet Vol. 10.3 fl (6.2-12.0); Monocyte# 0.46 X10^3/uL; Monocyte% 7.7 % (0-10); NRBC Flagged by Analyzer 0 % (0-5); Neutrophil # 3.28 X10^3/uL (2.7-7.7); Neutrophil % 54.7 % (47-70); Platelet Count 328 K/mm3 (150-450); RBC Distribution Width CV 13.9 % (11.6-14.6); Red Blood Count 4.37 M/mm3 (4.2-5.4)
[2024-02-29 11:58] LABS: BNP,B-Type NATRIURETIC PEPTIDE 288.5 pg/mL (0-100)
[2024-02-29 15:09] LABS: Anion Gap 5 (5-15); BUN 17 mg/dL (7-18); BUN/Creat Ratio 12.5 RATIO (10-20); Calcium,Total 9.7 mg/dL (8.5-10.1); Chloride 114 mmol/L (98-107); Creatinine, Serum 1.36 mg/dL (0.55-1.02); EST Glomerular Filtration Rate 39 mL/min (>60); Est Glom Filt Rate - Afr Amer 48 mL/min (>60); Glucose 102 mg/dL (74-106); Potassium 4.7 mmol/L (3.5-5.1); Sodium Level 140 mmol/L (136-145)
== END | disposition home or self-care (01) ==
LOC: LAB 11:15
PROVIDERS: PCP Internal Medicine; Referring Provider Nurse Practitioner Gerontology; Visit Provider Nurse Practitioner Gerontology
DX: R06.00 Dyspnea, unspecified (principal)
CPT/HCPCS: 36415; 80048; 83880; 85025

== ENCOUNTER → 2024-03-02 | Outpatient (CLI) | payer MEDICARE, SELFPAY | END | disposition home or self-care (01) | LOC: PSN 11:55 | PROVIDERS: PCP Internal Medicine; Referring Provider Nurse Practitioner Gerontology; Visit Provider Nurse Practitioner Gerontology | DX: I48.91 Unspecified atrial fibrillation (principal) | CPT/HCPCS: 93225; 93226 ==

== ENCOUNTER → 2024-03-04 | Outpatient (CLI) | payer MEDICARE, SELFPAY ==
--- NOTE | 2024-03-04 07:46 | CT_ITS ---
INDICATION: Abnormal X-ray Finding EXAMINATION: CT CHEST WITHOUT CONTRAST - CT Chest W/O Contrast Injection TECHNIQUE: Helically acquired images were obtained of the chest. A radiation dose optimization technique was used for this scan. IV Contrast dosage and agent: None. COMPARISON: 01/27/2024, 02/06/2024. FINDINGS: LUNGS, PLEURA AND LARGE AIRWAYS: No masses, consolidation, or edema. No pleural effusion or thickening. No pneumothorax. Slight scattered fibrotic changes of the mid and lower lung zones. THYROID: No thyroid lesions. Atrophic. HEART AND PERICARDIUM: Heart is mildly enlarged. Slight pericardial thickening with potential calcifications along the posterior pericardium (image 78 series 4). CORONARY ARTERIES: Coronary artery calcification is seen. VESSELS: Thoracic aorta is not dilated. MEDIASTINUM AND JUDSON: No mediastinal or hilar adenopathy. Esophagus is unremarkable. No hiatal hernia. UPPER ABDOMEN: No acute pathology. BONES: No suspicious lytic or blastic abnormality. Chronic moderate compression deformity of L1 is partially visualized, unchanged. CT/Chest without Contrast IMPRESSION: 1. No pulmonary nodule or mass. 2. Mild cardiomegaly. Slight pericardial thickening with potential pericardial calcifications Electronically Signed: Feliz Aden MD (Brooks) at 17:26 EDT Reading Location ID and State: [facility] / [place] , Service support ,
== END | disposition home or self-care (01) ==
LOC: CT 07:42
PROVIDERS: PCP Internal Medicine; Referring Provider Internal Medicine; Visit Provider Internal Medicine
DX: R91.8 Other nonspecific abnormal finding of lung field (principal)
CPT/HCPCS: 71250

== ENCOUNTER → 2024-03-09 | Outpatient (CLI) | payer MEDICARE, SELFPAY ==
[2024-03-09 13:17] LABS: Anion Gap 6 (5-15); BUN 24 mg/dL (7-18); BUN/Creat Ratio 16.6 RATIO (10-20); Calcium,Total 9.6 mg/dL (8.5-10.1); Chloride 110 mmol/L (98-107); Creatinine, Serum 1.45 mg/dL (0.55-1.02); EST Glomerular Filtration Rate 37 mL/min (>60); Est Glom Filt Rate - Afr Amer 44 mL/min (>60); Glucose 99 mg/dL (74-106); Potassium 4.2 mmol/L (3.5-5.1); Sodium Level 140 mmol/L (136-145)
== END | disposition home or self-care (01) ==
PROVIDERS: PCP Internal Medicine; Referring Provider Nurse Practitioner Gerontology; Visit Provider Nurse Practitioner Gerontology
DX: I50.30 Unspecified diastolic (congestive) heart failure (principal)
CPT/HCPCS: 36415; 80048

== ENCOUNTER → 2024-06-30 | Outpatient (CLI) | payer MEDICARE, SELFPAY ==
[2024-06-30 12:27] LABS: Absolute Lymphocyte Count 2.59 X10^3/uL (0.83-4.51); Absolute Neutrophil Count 3.1 X10^3/uL (2.0-7.7); Basophil# 0.05 X10^3/uL; Basophil% 0.8 % (0-1); Eosinophils% 1.5 % (0-5); Hemoglobin 12.8 g/dL (12.0-15.0); Lymphocyte # 2.59 X10^3/ul (0.83-4.51); Lymphocyte % 39.7 % (19-41); Mean Corpuscular Hgb 31.8 pg (27.0-32.0); Mean Corpuscular Volume 99.3 fL (81-99); Mean Platelet Vol. 10.6 fl (6.2-12.0); Monocyte# 0.65 X10^3/uL; NRBC Flagged by Analyzer 0 % (0-5); Neutrophil # 3.11 X10^3/uL (2.7-7.7); Neutrophil % 47.7 % (47-70); Platelet Count 332 K/mm3 (150-450); RBC Distribution Width CV 13.6 % (11.6-14.6); RBC Distribution Width SD 49.4 fl (35.1-43.9); Red Blood Count 4.03 M/mm3 (4.2-5.4); White Blood Count 6.5 K/mm3 (4.4-11.0)
[2024-06-30 12:58] LABS: ALB/GLOB Ratio 0.9 RATIO (0.9-2.4); AST(SGOT) 11 U/L (15-37); Alanine Aminotransfer ALT/SGPT 12 U/L (13-56); Albumin, Serum 3.4 g/dL (3.2-5.0); Alkaline Phosphatase 54 U/L (45-117); Anion Gap 3 (5-15); BUN 20 mg/dL (7-18); BUN/Creat Ratio 15.6 RATIO (10-20); Calcium,Total 9.4 mg/dL (8.5-10.1); Chloride 111 mmol/L (98-107); Creatinine, Serum 1.28 mg/dL (0.55-1.02); EST Glomerular Filtration Rate 42 mL/min (>60); Est Glom Filt Rate - Afr Amer 51 mL/min (>60); Globulin 3.6 g/dL (2.2-4.2); Glucose 101 mg/dL (74-106); Potassium 4.8 mmol/L (3.5-5.1); Sodium Level 141 mmol/L (136-145); Thyroid Stim Hormone (TSH) 4.47 uIU/mL (0.358-3.74)
== END | disposition home or self-care (01) ==
LOC: BIMLAB 10:05
PROVIDERS: PCP Internal Medicine; Referring Provider Internal Medicine; Visit Provider Internal Medicine
DX: E03.9 Hypothyroidism, unspecified (principal); I10 Essential (primary) hypertension; E78.00 Pure hypercholesterolemia, unspecified
CPT/HCPCS: 36415; 80053; 84443; 85025

== ENCOUNTER → 2024-08-23 | Outpatient (CLI) | payer MEDICARE, SELFPAY | END | disposition home or self-care (01) | PROVIDERS: PCP Internal Medicine; Referring Provider Internal Medicine; Visit Provider Internal Medicine | DX: E03.9 Hypothyroidism, unspecified (principal) | CPT/HCPCS: 36415; 84443 ==

== ENCOUNTER → 2025-01-01 | Outpatient (CLI) | payer MEDICARE, SELFPAY ==
[2025-01-01 15:35] LABS: Absolute Lymphocyte Count 2.59 X10^3/uL (0.83-4.51); Absolute Neutrophil Count 2.6 X10^3/uL (2.0-7.7); Basophil# 0.04 X10^3/uL; Basophil% 0.7 % (0-1); Eosinophil# 0.08 X10^3/uL; Eosinophils% 1.4 % (0-5); Hematocrit 42.3 % (37-47); Hemoglobin 13.7 g/dL (12.0-15.0); Lymphocyte # 2.59 X10^3/ul (0.83-4.51); Lymphocyte % 43.8 % (19-41); Mean Corp Hgb Conc 32.4 g/dL (32-36); Mean Corpuscular Hgb 31.4 pg (27.0-32.0); Mean Platelet Vol. 10.5 fl (6.2-12.0); Monocyte# 0.56 X10^3/uL; Monocyte% 9.5 % (0-10); NRBC Flagged by Analyzer 0 % (0-5); Neutrophil # 2.64 X10^3/uL (2.7-7.7); Neutrophil % 44.4 % (47-70); Platelet Count 317 K/mm3 (150-450); RBC Distribution Width CV 13.9 % (11.6-14.6); RBC Distribution Width SD 49.1 fl (35.1-43.9); Red Blood Count 4.36 M/mm3 (4.2-5.4); White Blood Count 5.9 K/mm3 (4.4-11.0)
[2025-01-01 16:14] LABS: Anion Gap 5 (5-15); BUN 14 mg/dL (7-18); BUN/Creat Ratio 10.9 RATIO (10-20); Calcium,Total 9.3 mg/dL (8.5-10.1); Chloride 111 mmol/L (98-107); Creatinine, Serum 1.28 mg/dL (0.55-1.02); EST Glomerular Filtration Rate 42 mL/min (>60); Est Glom Filt Rate - Afr Amer 51 mL/min (>60); Glucose 96 mg/dL (74-106); Potassium 4.1 mmol/L (3.5-5.1); Sodium Level 143 mmol/L (136-145)
== END | disposition home or self-care (01) ==
LOC: BIMLAB 13:50
PROVIDERS: PCP Internal Medicine; Referring Provider Internal Medicine; Visit Provider Internal Medicine
DX: I10 Essential (primary) hypertension (principal); E03.9 Hypothyroidism, unspecified
CPT/HCPCS: 36415; 80048; 84443; 85025

== ENCOUNTER 2025-03-06 09:45 | Emergency (ER) | payer MEDICARE, SELFPAY ==
[2025-03-06] VITALS (8 sets, daily range): BP systolic 111–155; BP diastolic 77–93; PULSE 99–126; RESP 16–20; TEMP 36.1; O2SAT 90–98; BMI 33.5
--- NOTE | 2025-03-06 09:57 | MRI_ITS ---
PROCEDURE: BRAIN WITHOUT CONTRAST (MRIBR), 03/06/2025 REASON FOR EXAM: PARTIAL LEFT III CRANIAL NERVE DEFICIT COMPARISON: None. TECHNIQUE: Multisequence multiplanar MRI brain was performed without intravenous contrast. Contrast: None. FINDINGS: Cerebrum: No acute infarct, mass, or appreciable intracranial hemorrhage identified. Moderate diffuse cerebral volume loss. Mild/moderate patchy supratentorial white matter abnormalities, nonspecific but compatible with chronic microvascular ischemic changes. Cerebellum: Unremarkable. Brainstem: Unremarkable. Ventricles/extra-axial spaces: Age-appropriate appearance. Major flow voids: Grossly unremarkable within limits of nondedicated technique. Paranasal sinuses: Unremarkable. Scalp/calvarium: Unremarkable. Orbits: Bilateral cataract surgery, otherwise grossly unremarkable within limits of nondedicated technique. Other: None. MRI/Brain without Contrast IMPRESSION: 1. No specific evidence of an acute intracranial process or definite noncontras t findings to explain the patient's symptoms is identified. 2. Additional description as above. Reading Location: [id number]
--- NOTE | 2025-03-06 09:57 | MRI_ITS ---
PROCEDURE: MRA HEAD ONLY WITHOUT CONTRAST 03/06/2025 REASON FOR EXAM: LEFT PARTIAL 3RD NERVE PALSY COMPARISON: None. TECHNIQUE: 3D Time of Flight MRA of the head was performed without IV contrast. Rotating 3D MIP reconstructions were generated. FINDINGS: Anterior Circulation: Patent. Diminutive LEFT A1 segment, normal variant. Posterior Circulation: Patent. origin of the LEFT SENIOR UI WEB DEVELOPER, normal variant. RIGHT dominant vertebral artery. Diminutive LEFT vertebral artery terminates as PICA. Aneurysms: Tiny 2 mm vaguely triangular outpouching from the inferior surface of the supraclinoid RIGHT ICA could reflect a PCOM infundibulum (series 2, image 102). MRI/MRA Head ONLY without Contrast IMPRESSION: 1. No large vessel occlusion or hemodynamically significant stenosis identified within limits of MRA. 2. Tiny 2 mm vaguely triangular outpouching along the supraclinoid RIGHT ICA co uld reflect a posterior communicating artery infundibulum versus a tiny aneurysm. Recommend clinical follow-up. Reading Location: [id number]
--- NOTE | 2025-03-06 09:57 | EKG12_ITS ---
Test Reason : Blood Pressure : */* mmHG Vent. Rate : 110 BPM Atrial Rate : * BPM P-R Int : * ms QRS Dur : 84 ms QT Int : 348 ms P-R-T Axes : * 56 73 degrees QTcB Int : 470 ms Atrial fibrillation with rapid ventricular response Nonspecific T wave abnormality Abnormal ECG Confirmed by Srikanth Bonilla ([id number]), editor department DANIEL BENITES ([id number]) on 03/09/2025 6:42:49 AM Referred By: DEBBIE Confirmed By: Srikanth Bonilla
--- NOTE | 2025-03-06 10:28 | EX.ED.DYSGE1 ---
HPI History of Present Illness Chief Complaint: Vision Prob Detail of Chief Complaint: Diplopia Informant: patient and other (Dr. 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 Differential diagnosis is aneurysm, giant cell arteritis, microvascular disease. After discussion with Dr. Curry since patient does not have contraindication MRI of the brain and MRA of the brain are indicated. Prior similar symptoms: No Recent Illness/Hospitalization: No PFSH PFSH Medical History Hypothyroidism GI bleed Chronic pain Atrial fibrillation CKD (chronic kidney disease) Osteoarthritis Left foot pain Flu vaccine need Difficulty swallowing Vertigo Cardiac dysrhythmia Ectopic cardiac beats Ventricular premature depolarization Atrial premature depolarization Nonrheumatic mitral (valve) insufficiency Paroxysmal atrial fibrillation Essential hypertension History of ovarian cyst Subclinical hypothyroidism Ectopic atrial tachycardia Syncope and collapse Mitral valve disorder Sinus bradycardia Palpitations Encounter for long-term current use of high risk medication Contraction, premature ventricular Hyperlipemia Hypertension Atrial fibrillation, controlled Home Medications ?Medication ?Instructions ?Recorded ?Last Taken ?Type acetaminophen 500 mg tablet 1,000 mg (2 x 500 mg) PO Q8H PRN 02/21/24 Unknown Rx Pain 1-10 Or Fever #0 tabs B-complex with vitamin C 1 tab PO DAILY 02/25/24 Unknown History ascorbic acid (vitamin C) 500 mg mg PO 02/25/24 Unknown History capsule coq10 PO 02/25/24 Unknown History occuvite PO 02/25/24 Unknown History levothyroxine 50 mcg tablet 50 mcg PO DAILY thyroid #90 tabs 08/09/24 Unknown Rx atenolol 50 mg tablet 50 mg PO BID #180 tabs 12/14/24 Unknown Rx furosemide 40 mg tablet (Lasix) 40 mg PO .3x/week 12/14/24 Unknown History amlodipine 2.5 mg tablet 2.5 mg PO DAILY BP #90 tabs 01/16/25 Unknown Rx lisinopril 20 mg tablet 20 mg PO DAILY 03/06/25 Unknown History Allergy/AdvReac Type Severity Reaction Status Date / Time Penicillins Allergy Anaphylaxis Verified 03/06/25 09:51 codeine AdvReac Abd Verified 03/06/25 09:51 cramps/diarrhea Family History Father Heart disease Myocardial infarction, Onset Age: 59 Black lung disease Brother Cancer Sister Cancer Breast Brother Bright's disease Brother Multiple sclerosis Surgical History History of tubal ligation History of esophageal surgery History of cholecystectomy History of appendectomy Social History household members: none Smoking Status: Never smoker alcohol intake: never substance use type: does not use caffeine: Yes Type: coffee Number of servings: 2 what type of physical activity do you participate in: walking frequency: 3-4 times per week ROS ROS ED Constitutional Constitutional ED: Denies chills, fever(s), subjective or sweats Eyes Eyes: Reports diplopia; Denies blurry vision or change in vision ENT ENT ED: Denies rhinorrhea or sore throat Cardiovascular Cardiovascular: Denies palpitations Respiratory/Chest Respiratory/Chest: Denies cough, dyspnea or dyspnea on exertion Gastrointestinal Gastrointestinal: Denies nausea or vomiting Neurologic Neurologic: Denies headache(s), paresthesias or weakness Hematologic/Lymphatic Hematologic/Lymphatic: Reports systems reviewed and no addt'l complaints, except as documented EXAM Physical Exam Const Vital Signs: 03/06/25 09:48 03/06/25 10:50 03/06/25 11:00 Temperature 96.9 F L Temperature Source Oral Pulse Rate 123 H 126 H 113 H Respiratory Rate 20 H 16 16 Blood Pressure 147/88 H 155/93 H 112/77 Blood Pressure Mean 107 113 88 Blood Pressure Source Monitor Monitor Blood Pressure Position Supine Supine Blood Pressure Location Left Arm Left Arm Pulse Ox 96 94 90 Oxygen Delivery Method Room Air Room Air Room Air 03/06/25 11:10 03/06/25 11:20 03/06/25 11:46 Temperature Temperature Source Pulse Rate 100 126 H Respiratory Rate 16 16 Blood Pressure 140/80 H 138/88 H 111/80 Blood Pressure Mean 100 104 90 Blood Pressure Source Monitor Monitor Blood Pressure Position Supine Supine Blood Pressure Location Left Arm Left Arm Pulse Ox 90 96 98 Oxygen Delivery Method Room Air Room Air Room Air 03/06/25 13:00 Temperature Temperature Source Pulse Rate 99 Respiratory Rate Blood Pressure 124/83 H Blood Pressure Mean 96 Blood Pressure Source Blood Pressure Position Blood Pressure Location Pulse Ox 98 Oxygen Delivery Method Room Air Positive well nourished and well developed General Appearance ED: well developed and NAD; Negative for pallor HEENT Reports moist mucous membranes HEENT Narrative: Head is atraumatic normocephalic. Ears normal. Nares patent. Posterior pharynx unremarkable. Uvula is midline. No deviation with protrusion. Eyes PERRL; Negative for EOMs intact bilaterally General Eye ED: Negative for pale conjunctiva or scleral icterus Neck no lymphadenopathy, supple and no JVD Resp normal respiratory effort and clear to auscultation bilaterally Cardio regular rate, S1 normal heart sound, S2 normal heart sound and no murmurs Rhythm: abnormal rhythm irregularly irregular GI normal to inspection, nondistended, normoactive bowel sounds, non-tender, non-distended and no masses; Negative for hepatosplenomegaly Back/Spine no CVA tenderness Extremity normal to inspection General Extremety ED: Negative for edema or tenderness General Extremity: Negative for edema Neuro oriented x3, No CN's II-XII intact bilaterally and no sensory deficits noted Neuro Narrative: There is no dysmetria. There is no clonus Babinski sign noted. Sensorium / Orientation: alert Motor Exam: strength 5/5 throughout Psych mental status grossly normal Skin no rashes or lesions noted, no wounds and skin turgor normal General Skin Exam: Negative for jaundice or pallor MDM MDM MDM Narrative Medical decision making narrative: Differential diagnosis is aneurysm, giant cell arteritis, microvascular disease. Per discussion with Dr. Curry MRI and MRA are indicated. Also obtained inflammatory markers, CBC and electrolyte panel. Patient states she has mild claustrophobia. She will receive Ativan prior to MRI. Lab Data Attestation: I reviewed the patient's lab results. Lab results narrative: CBC is normal. BMP is remarkable for a creatinine of 1.21 with an estimated GFR of 44. ESR and C-reactive protein are both normal. Labs: Laboratory Results - last 24 hr 03/06/25 10:19 WBC 6.7 RBC 4.53 Hgb 14.0 Hct 43.0 MCV 94.9 MCH 30.9 MCHC 32.6 RDW Std Deviation 48.6 H RDW Coeff of Cata 14.0 Plt Count 290 MPV 10.1 Immature Gran % (Auto) 0.500 Neut % (Auto) 57.1 Lymph % (Auto) 31.4 [place] % (Auto) 9.2 Eos % (Auto) 1.2 Baso % (Auto) 0.6 Absolute Neuts (auto) 3.8 Absolute Lymphs (auto) 2.09 Nucleated RBC % 0 ESR 9 Sodium 141 Potassium 4.3 Chloride 107 Carbon Dioxide 23.1 Anion Gap 11 BUN 12 Creatinine 1.21 H Estim Creat Clear Calc 33.97 L Est GFR (MDRD) Non-Af 44 L BUN/Creatinine Ratio 9.5 L Glucose 106 H Calcium 9.7 Total Bilirubin 0.60 AST 22 ALT 18 Alkaline Phosphatase 69 C-React Prot Ext Range < 3.00 Total Protein 6.9 Albumin 4.0 Globulin 2.9 Albumin/Globulin Ratio 1.4 Radiography Diagnostic Testing: Clinical Impression(s) from Imaging Studies Brain MRI 03/06/25 09:57 IMPRESSION: 1. No specific evidence of an acute intracranial process or definite noncontrast findings to explain the patient's symptoms is identified. 2. Additional description as above. Reading Location: [facility] Head MRA 03/06/25 09:57 IMPRESSION: 1. No large vessel occlusion or hemodynamically significant stenosis identified within limits of MRA. 2. Tiny 2 mm vaguely triangular outpouching along the supraclinoid RIGHT ICA could reflect a posterior communicating artery infundibulum versus a tiny aneurysm. Recommend clinical follow-up. Reading Location: [facility] EKG Initial EKG: Attestation: I personally reviewed and interpreted this EKG as follows: Interpretation: Atrial Fibrillation (Rate is 110. QRS duration 84 ms. QT duration 3 and 48 ms. Julian is normal. There are some nonseptic changes which may be due to artifact.) Management Discussion w/another healthcare provider: [id number] Software Engineer (Dr. Curry as previously documented in the EMR) Treatment and Re-Evaluation :: Dr. Curry was made aware of the MRA. She requested I speak with the radiologist to confirm that the abnormalities on the right and not the left. If right she may be discharged if her left she will need neurosurgical intervention. Spoke with the radiologist at 1329. 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 atenolol 50 mg tablet 50 mg PO BID Qty: 180 2RF acetaminophen 500 mg Tablet 1,000 mg PO Q8H PRN (Reason: Pain 1-10 Or Fever) Qty: 0 0RF lisinopril 20 mg tablet 20 mg PO DAILY levothyroxine 50 mcg tablet 50 mcg PO DAILY Qty: 90 3RF Patient Comments: PT UNSURE OF DOSE OR IF SHE TAKES. Rx Instructions: take 50mcg daily and on one day of the week take an extra half of a tablet. amlodipine 2.5 mg tablet 2.5 mg PO DAILY Qty: 90 3RF Primary Care Provider: Zeke Moses Referrals: Zeke Moses MD [Primary Care Provider] - Flower Curry MD [Med Staff - Active Staff] - Keep Michael appointment Print Language: Japanese Disposition Disposition: Home, Self Care
[2025-03-06] MEDS: Lorazepam 2 MG/ML WCH Syringe 0.5 MG IV (10:34)
[2025-03-06 10:36] LABS: Erythrocyte Sedimentation Rate 9 mm/hr (0-30)
[2025-03-06 10:37] LABS: Absolute Lymphocyte Count 2.09 X10^3/uL (0.83-4.51); Absolute Neutrophil Count 3.8 X10^3/uL (2.0-7.7); Basophil# 0.04 X10^3/uL; Basophil% 0.6 % (0-1); Eosinophil# 0.08 X10^3/uL; Eosinophils% 1.2 % (0-5); Lymphocyte # 2.09 X10^3/ul (0.83-4.51); Lymphocyte % 31.4 % (19-41); Mean Corp Hgb Conc 32.6 g/dL (32-36); Mean Corpuscular Hgb 30.9 pg (27.0-32.0); Mean Corpuscular Volume 94.9 fL (81-99); Mean Platelet Vol. 10.1 fl (6.2-12.0); Monocyte# 0.61 X10^3/uL; Monocyte% 9.2 % (0-10); NRBC Flagged by Analyzer 0 % (0-5); Neutrophil # 3.81 X10^3/uL (2.7-7.7); Neutrophil % 57.1 % (47-70); Platelet Count 290 K/mm3 (150-450); RBC Distribution Width SD 48.6 fl (35.1-43.9); Red Blood Count 4.53 M/mm3 (4.2-5.4); White Blood Count 6.7 K/mm3 (4.4-11.0)
[2025-03-06 10:48] LABS: ALB/GLOB Ratio 1.4 RATIO (0.9-2.4); AST(SGOT) 22 U/L (<=31); Alanine Aminotransfer ALT/SGPT 18 U/L (<=34); Alkaline Phosphatase 69 U/L (35-104); Anion Gap 11 (5-15); BUN 12 mg/dL (4-19); BUN/Creat Ratio 9.5 RATIO (10-20); Calcium,Total 9.7 mg/dL (7.6-11.0); Carbon Dioxide 23.1 mmol/L (21.0-32.0); Chloride 107 mmol/L (98-108); Creatinine, Serum 1.21 mg/dL (0.70-1.20); EST Glomerular Filtration Rate 44 (>60); Estimated Creatinine Clearance 33.97 ml/min (50-250); Globulin 2.9 g/dL (2.2-4.2); Glucose 106 mg/dL (70-99); Potassium 4.3 mmol/L (3.3-5.1); Protein, Total 6.9 g/dL (5.9-8.4); Sodium Level 141 mmol/L (133-145)
[2025-03-06 11:37] LABS: CRP < 3.00 mg/L (0.0-3.0)
== END 2025-03-06 13:47 | disposition home or self-care (01) ==
PROVIDERS: Emergency Provider Emergency Medicine; PCP Internal Medicine; Visit Provider Emergency Medicine
DX: H53.2 Diplopia (principal); I13.0 Hypertensive heart and chronic kidney disease with heart failure and stage 1 through stage 4 chronic kidney disease, or unspecified chronic kidney disease; I50.30 Unspecified diastolic (congestive) heart failure; I48.19 Other persistent atrial fibrillation; E78.5 Hyperlipidemia, unspecified; E03.9 Hypothyroidism, unspecified; I67.1 Cerebral aneurysm, nonruptured; N18.9 Chronic kidney disease, unspecified; Z79.890 Hormone replacement therapy; Z79.899 Other long term (current) drug therapy; Z98.51 Tubal ligation status; Z90.49 Acquired absence of other specified parts of digestive tract; G58.9 Mononeuropathy, unspecified
CPT/HCPCS: 70544; 70551; 80053; 85025; 85652; 86140; 93005; 96374; 96375; 99282; A4216

== ENCOUNTER → 2025-07-02 | Outpatient (CLI) | payer MEDICARE, SELFPAY ==
[2025-07-02 19:24] LABS: AST(SGOT) 19 U/L (<=31); Alanine Aminotransfer ALT/SGPT 12 U/L (<=34); Albumin, Serum 3.8 g/dL (3.4-4.8); Alkaline Phosphatase 67 U/L (35-104); Anion Gap 16 (5-15); BUN 17 mg/dL (4-19); BUN/Creat Ratio 13.5 RATIO (10-20); Calcium,Total 9.6 mg/dL (7.6-11.0); Carbon Dioxide 19.8 mmol/L (21.0-32.0); Chloride 106 mmol/L (98-108); Cholesterol 226 mg/dL (<=200); Globulin 2.7 g/dL (2.2-4.2); Glucose 107 mg/dL (70-99); Low Density Lipoprotein Calc. 154 mg/dL; Potassium 4.6 mmol/L (3.3-5.1); Triglycerides 101 mg/dL; Very Low Density Lipoprotein 20 mg/dL (5-40); cholesterol:hdl ratio screen 4.37
[2025-07-02 19:56] LABS: Hematocrit 43.1 % (37-47); Hemoglobin 13.4 g/dL (12.0-15.0); Immature Granulocytes Count 0.010 X10^3/uL (0.0-0.0); Mean Corp Hgb Conc 31.1 g/dL (32-36); Mean Corpuscular Volume 98.2 fL (81-99); Mean Platelet Vol. 11.4 fl (6.2-12.0); NRBC Flagged by Analyzer 0 % (0-5); Platelet Count 273 K/mm3 (150-450); RBC Distribution Width CV 14.4 % (11.6-14.6); RBC Distribution Width SD 51.8 fl (35.1-43.9); Red Blood Count 4.39 M/mm3 (4.2-5.4); White Blood Count 6.2 K/mm3 (4.4-11.0)
[2025-07-05 11:58] LABS: BETA-HYDROXYBUTYRATE 0.2 mmol/L (0.0-0.3)
== END | disposition home or self-care (01) ==
LOC: MTLAB 14:37
PROVIDERS: PCP Internal Medicine; Referring Provider Internal Medicine; Visit Provider Internal Medicine
DX: R73.9 Hyperglycemia, unspecified (principal); E03.9 Hypothyroidism, unspecified; I10 Essential (primary) hypertension
CPT/HCPCS: 36415; 80053; 80061; 82010; 83036; 84443; 85025